=== PATIENT | female | born 1930 | race Caucasian/White ===

== ENCOUNTER 2019-08-12 00:37 | Inpatient (IN) ==
--- NOTE | 2019-08-12 01:21 | Emergency Department Note ---
ED Disposition Clinical Impression: Small bowel obstruction Disposition: Admitted As Inpatient Condition on Discharge: Fair Referrals: Elvin Guardado MD [Primary Care Provider] - - Critical Care Critical Care Time: No Attestation: On 08/12/19, the high probability of a clinically significant, sudden or life threatening deterioration of the following system(s) required my full and direct attention, intervention and personal management. The time I documented below is in addition to time spent performing reported procedures but includes the following listed in this critical care notation. Medical Decision Making - Jose Inquiry Pt receiving controlled substance: Yes Jose was queried for this patient: No Reason not queried -: Emergent pt cond-no time Risks and benefits of using a controlled substance: were not discussed with pt by me Vital Signs: 08/12/19 00:51 Temperature 97.7 F Temperature Source Oral Pulse Rate [Right] 86 Respiratory Rate 20 Blood Pressure [Right Arm] 162/81 H Blood Pressure Mean [Right Arm] 108 02 Sat by Pulse Oximetry 100 Oxygen Delivery Method Room Air - Lab Data Lab Results 08/12/19 00:43: Urine Color Yellow, Urine Appearance Clear, Urine pH 5.0, Ur Specific [place] >= 1.030, Urine Protein Negative, Urine Glucose (UA) Negative, Urine Ketones Negative, Urine Blood Negative, Urine Nitrate Negative, Urine Bilirubin Negative, Urine Urobilinogen 0.2, Ur Leukocyte Esterase Trace, Urine RBC 5-10, Urine WBC 3-5, Ur Squamous Epith Cells Occasional, Urine Bacteria 1+, Urine Mucus 1+ 08/12/19 00:55: WBC 10.4, RBC 4.52, Hgb 14.0, Hct 43.6, MCV 96.7, MCH 31.1, MCHC 32.2, RDW 14.0, Plt Count 181, MPV 7.6, Neut % (Auto) 65.8, Lymph % (Auto) 29.2, [place] % (Auto) 3.8, Eos % (Auto) 1.0, Baso % (Auto) 0.2, Neut # (Auto) 6.9, Lymph # (Auto) 3.1, [place] # (Auto) 0.4, Eos # (Auto) 0.1, Baso # (Auto) 0.0 08/12/19 00:55: Sodium 138, Potassium 4.6, Chloride 102, Carbon Dioxide 26, Anion Gap 14.6, BUN 28 H, Creatinine 1.20 H, Estimated Creat Clear 32, Estimated GFR 42 L, Est GFR ( Amer) 51 L, Glucose 138 H, Calcium 9.2, Total Bilirubin 0.3, AST 20, ALT 22, Alkaline Phosphatase 79, Troponin I < 0.02, Total Protein 8.0, Albumin 4.0, Globulin 4.0 H, Albumin/Globulin Ratio 1.0 L, Amylase 109, Lipase 205 08/12/19 00:55: Lactate 2.2 H Result diagrams: 08/12/19 00:55 08/12/19 00:55 Orders (Tests/Meds): ED MEDICATIONS Discontinued Medications Generic Name Dose Route Start Last Admin Trade Name Freq PRN Reason Stop Dose Admin Ioversol 75 ml 08/12/19 02:45 08/12/19 02:46 Rad-Optiray 350 100ml Vial IV 08/12/19 02:46 75 ml ONCE ONE Administration Protocol Morphine Sulfate 4 mg 08/12/19 01:29 08/12/19 01:34 Morphine 4mg/Ml Syringe IV 08/12/19 01:30 4 mg ONCE ONE Administration Ondansetron HCl 4 mg 08/12/19 01:29 08/12/19 01:34 Zofran 4mg/2ml Vial IV 08/12/19 01:30 4 mg ONCE ONE Administration Sodium Chloride 1,000 ml 08/12/19 01:29 08/12/19 01:34 Sod Chlor 0.9% 1000ml Bag IV 08/12/19 01:30 1,000 ml BOLUS ONE Administration Sodium Chloride 10 ml 08/12/19 02:45 08/12/19 02:46 Rad-Saline Flush 10ml Syringe IV 08/12/19 02:46 10 ml ONCE ONE Administration ORDERS Category Date Time Status CT abdomen pelvis w con Stat Cat Scan 08/12/19 01:20 Taken Troponin I Q3H Lab 08/12/19 04:30 Ordered Troponin I Q3H Lab 08/12/19 07:30 Ordered Blood Culture Stat Micro 08/12/19 00:55 Received - CT Data CT Scan: Abdomen, Pelvis Time Received: 03:09 ([facility] fax) ED CT Reviewed: Yes: I have viewed the radiologist's interpretation Findings Narrative: Small bowel obstruction - ECG Data Tracing #1 EKG interpreted by Loco Briceno MD: Rhythm: sinus Rate: 76 [place]: Left Ectopy: none Conduction: normal ST Segment Changes: none T Wave Changes: Nonspecific Q Waves: none No evidence of acute ischemia or injury Baseline artifact and wander present, but I consider the EKG adequate for accurate interpretation. - Physician Consults Physician Consulted: Rosalio leiva Geo Time: 03:09 Reason -: Pt condition Comment/Response: Since she does not have any major medical problems, see if surgery will admit to their service Additional Consult: Dr. Collazo Time: 03:12 Reason -: Admission, Surgical Eval/Care Comment/Response: Agrees to admit the patient to the hospital. We discussed the patient's clinical information, including history, exam, laboratory and radiology results and ED course. Per hospital procedure, I will write temporary bridge inpatient orders on the patient. Specific orders requested by the admitting physician: No NG tube at this time. General Adult HPI - General Chief complaint: Abdominal Pain Stated complaint: Stomach pain Time Seen by Provider: 08/12/19 01:30 Mode of Arrival: Ambulatory Limitations: No Limitations Description of Symptoms (Recalled from ER Triage Doc. by RN): PATIENT AMBULATORY TO TX 10 STATING "THERES SOMETHING WRONG WITH MY STOMACH. I AIN'T NEVER HAD IT HURT LIKE THIS BEFORE." PATIENT REPORTS PAIN STARTED IN L RIB AREA THAT RADIATES TO EPIGASTRIC AREA AND TO BACK. STATES SHE ATE SOME CHILI LAST NIGHT AND HAD SOME ACID REFLUX. STATES TODAY THE PAIN IS PROGRESSIVELY GETTING WORSE. - History of Present Illness HPI narrative: Complains of diffuse upper abdominal pain since about 4 PM today. States that she only vomited when she drank some soda water. Had a bowel movement tonight that was normal. No fever. Pain radiates to her back. Denies previous similar pain. She had some heartburn yesterday and treated with omeprazole with relief. She says that she thought on Thursday 4 days ago she was developing UTI. She had some low back pain and burning. She started on a cephalosporin antibiotic at that time that Dr. eD Leon gives her for recurrent UTI. Those symptoms got better. She also says that she gets recurrent shingles and keeps a prescription for famciclovir. She took that last week. Prior cholecystectomy, partial colectomy due to diverticulitis, hysterectomy. - Related Data Home Medications Medication Instructions Recorded Confirmed acyclovir 400 mg tablet 400 mg PO BID 10/06/17 08/12/19 omeprazole 40 mg capsule,delayed 40 mg PO DAILY cap 10/06/17 08/12/19 release Fluconazole 150 mg PO QWEEK 06/30/19 08/12/19 Previous Rx's Medication Instructions Recorded cephalexin 500 mg capsule 500 mg PO Q12H 10 Days #20 cap 06/30/19 Allergies Allergy/AdvReac Type Severity Reaction Status Date / Time acetaminophen Allergy Unknown DIFFICULTY Verified 07/07/19 14:57 [From DARVOCET-N] BREATHING ciprofloxacin [From CIPRO] Allergy Unknown DIFFICULTY Verified 07/07/19 14:57 BREATHING Penicillins [PENICILLINS] Allergy Unknown DIFFICULTY Verified 07/07/19 14:57 BREATHING propoxyphene Allergy Unknown DIFFICULTY Verified 07/07/19 14:57 [From DARVOCET-N] BREATHING doxycycline Allergy Verified 07/07/19 14:57 Sulfa (Sulfonamide Allergy Verified 07/07/19 14:57 Antibiotics) valacyclovir [From Valtrex] Allergy Vomiting Verified 07/07/19 14:57 [facility] History - Hepatitis A Screen Drug use history?: No High risk sexual behaviors?: No History of sexually transmitted infection?: No Currently employed?: No Childcare worker?: No Do you have indoor plumbing?: Yes Do you have electricity?: Yes Attestation statement:: This patient has been screened for Hepatitis A risk factors. I have reviewed the patient's past medical history: Yes Medical History: Reports:: Aneurysm, Asthma, Hyperlipidemia, Ulcer, Urinary Tract Infection Denies:: Cancer, Diabetes Mellitus Type 1, Diabetes Mellitus Type 2, Internal Pacemaker, MRSA, Seizures Other Medical History: Reports: Arthritis, Other. Denies: Blood Transfusion Reaction Comment: C-Diff, LS&A-Vulva Other Surgeries: Yes: Cholecystectomy, Colonoscopy, Colon Resection, Hysterectomy-Total, Other. No: Pacemaker Amputation: No Fractures: No Comment: ? D&E x2. 1963- KELSEY. 1964- BSO. 1988- A&P REPAIR. 1991- LAP CHOLECYSTECTOMY. 2001- PVS, RSO. 2006- pt. had 18" of colon removed. 2009- Hemorrhoid surgery. 2016or 2018-Brain surgery - Social History Smoking Status: Never smoker Alcohol Intake: never Alcohol Intake Frequency:: other Substance Use Type: denies use Occupational Status: retired Housing: house Household Members: none Family Hx:: Cancer, Diabetes, Coronary Artery Disease, Hypertension ROS Obtained: Yes All systems reviewed & no additional complaints - Constitutional Constitutional: Denies fever(s) - Cardiovascular Cardiovascular: Denies chest pain - Respiratory Respiratory: No dyspnea - Gastrointestinal Gastrointestingal: Reports: abdominal pain, nausea, vomiting. Denies: constipation, diarrhea - Genitourinary Female Genitourinary: Reports as per HPI - Musculoskeletal Musculoskeletal: Reports back pain - Integumentary/Breasts Skin/Breast: Reports as per HPI Physical Exam - General General appearance: alert, in no apparent distress - Head Head exam: atraumatic, normocephalic - Eye Eye exam: Present: normal appearance, EOMI - ENT ENT exam: Present: mucous membranes moist - Neck Neck exam: Present: normal inspection - Chest Chest inspection: Present: normal inspection, symmetric chest wall rise - Respiratory Respiratory exam: Present: normal lung sounds bilaterally. Absent: respiratory distress - Cardiovascular Cardiovascular exam: Present: regular rate, normal rhythm, normal heart sounds - Abdominal Exam Abdominal exam: Present: soft, tenderness, normal bowel sounds Abdominal tenderness: Present: RUQ, LUQ, epigastrium Comment: Midline abdominal scar - Extremities Exam Extremities exam: Present: normal inspection - Neurological Exam Neurological exam: Present: alert, oriented X3 - Psychiatric Psychiatric exam: Present: normal affect, normal mood - Skin Skin exam: Present: warm, dry
[2019-08-12 01:34] LABS: Microscopic, Urine URINE MICROSCOPIC (MICROSCOPIC)
[2019-08-12 01:37] LABS: Basophils % 0.2 % (0.1-2.0); Eosinophils # 0.1 K/mm3 (0.0-0.4); Hematocrit 43.6 % (37.0-47.0); Lymphocytes # 3.1 K/mm3 (0.7-4.5); Lymphocytes % 29.2 % (10-50); Mean Corpuscular HGB Conc 32.2 g/dL (31.8-35.4); Mean Corpuscular Volume 96.7 fl (81-99); Mean Platelet Volume 7.6 fl (7.4-10.4); Monocytes # 0.4 K/mm3 (0.1-1.0); Monocytes % 3.8 % (1.7-9.3); Neutrophils # 6.9 K/mm3 (1.8-7.8); Neutrophils % 65.8 % (37.0-80.0); Platelet Count 181 K/mm3 (142-424); Red Blood Count 4.52 M/mm3 (4.20-5.40); White Blood Count 10.4 K/mm3 (4.8-10.8)
[2019-08-12 01:41] LABS: Appearance,Urine CLEAR (Clear); Bilirubin,Urine Negative (Negative); Blood, Urine Negative (Negative); Color,Urine YELLOW (Yellow); Glucose,Urine (UA) Negative (Negative); Ketones,Urine Negative (Negative); Leukocyte Esterase,Urine TRACE (Negative); Protein,Urine Negative (Negative); Specific Gravity, Urine >= 1.030 (1.005-1.030); Urobilinogen,Urine 0.2 EU/dl (0.2)
[2019-08-12 01:49] LABS: Alanine Aminotransferase 22 U/L (12-78); Alkaline Phosphatase 79 U/L (46-116); Amylase 109 U/L (25-115); Anion Gap 14.6 mEq/L (5-15); Aspartate Amino Transferase 20 U/L (15-37); Bilirubin,Total 0.3 mg/dL (0.2-1.0); Blood Urea Nitrogen 28 mg/dL (7-18); Calcium 9.2 mg/dL (8.5-10.1); Carbon Dioxide 26 mmol/L (21.0-32.0); Chloride 102 mmol/L (98-107); Glucose 138 mg/dL (74-106); Sodium 138 mmol/L (136-145)
[2019-08-12 01:51] LABS: Squamous Epithelial Cell,Urine Occasional #/hpf (0-5)
[2019-08-12 01:52] LABS: Bacteria,Urine 1+ /lpf; Mucus,Urine 1+ /lpf
--- NOTE | 2019-08-12 07:15 | Pharmacy Consult Notes ---
[facility] Pharmacy VTE Monitoring - Patient Demographics Admission date: 08/12/19 Report Date: 08/12/19 Time: 07:15 Allergies/Adverse Reactions: Patient Allergies acetaminophen [From DARVOCET-N] Allergy (Unknown, Verified 07/07/19 14:57) DIFFICULTY BREATHING ciprofloxacin [From CIPRO] Allergy (Unknown, Verified 07/07/19 14:57) DIFFICULTY BREATHING Penicillins [PENICILLINS] Allergy (Unknown, Verified 07/07/19 14:57) DIFFICULTY BREATHING propoxyphene [From DARVOCET-N] Allergy (Unknown, Verified 07/07/19 14:57) DIFFICULTY BREATHING doxycycline Allergy (Verified 07/07/19 14:57) hydrocodone Allergy (Verified 08/12/19 05:18) Vomiting ibuprofen [From Advil] Allergy (Verified 08/12/19 05:18) Vomiting Sulfa (Sulfonamide Antibiotics) Allergy (Verified 07/07/19 14:57) valacyclovir [From Valtrex] Allergy (Verified 07/07/19 14:57) Vomiting Height: 1.52 m Weight: 59.988 kg Patient Problems: Current Active Problems Small bowel obstruction (Acute) - VTE Risk Labs: VTE Related Lab Results Hgb 14.0 g/dL (12.2-16.2) 08/12/19 00:55 Hct 43.6 % (37.0-47.0) 08/12/19 00:55 Plt Count 181 K/mm3 (142-424) 08/12/19 00:55 BUN 28 mg/dL (7-18) H 08/12/19 00:55 Creatinine 1.20 mg/dL (0.55-1.02) H 08/12/19 00:55 Estimated Creat Clear 32 mL/min (50-200) 08/12/19 00:55 VTE Score: 3 VTE Risk Level: Low Risk - Prophylaxis VTE Prophylaxis Ordered?: Yes Types of VTE Prophylaxis: TEDS Knee High Location of Applied Device: Bilateral Lower Extremeties
--- NOTE | 2019-08-12 07:20 | History & Physical Report ---
HPI HPI: This is an 89-year-old female who presented overnight to the emergency department with increasing abdominal pain and mild distention. Radiographic evidence revealed changes consistent with possible small bowel obstruction the surgical service was contacted for admission. She states that she continues to pass some flatus as of "yesterday or last night". She states that she had a bowel movement overnight. No nausea. One episode of emesis after "drinking soda water". from ED eval: Complains of diffuse upper abdominal pain since about 4 PM today. States that she only vomited when she drank some soda water. Had a bowel movement tonight that was normal. No fever. Pain radiates to her back. Denies previous similar pain. She had some heartburn yesterday and treated with omeprazole with relief. She says that she thought on Thursday 4 days ago she was developing UTI. She had some low back pain and burning. She started on a cephalosporin antibiotic at that time that Dr. De Leon gives her for recurrent UTI. Those symptoms got better. She also says that she gets recurrent shingles and keeps a prescription for famciclovir. She took that last week. Prior cholecystectomy, partial colectomy due to diverticulitis, hysterectomy. [facility] History Medical History: Reports:: Aneurysm, Asthma, Hyperlipidemia, Ulcer, Urinary Tract Infection Denies:: Cancer, Diabetes Mellitus Type 1, Diabetes Mellitus Type 2, Internal Pacemaker, MRSA, Seizures *Have you ever received a pneumonia vaccine?: No *Have you received a flu vaccine this season?: No Other Medical History: Reports: Arthritis, Other. Denies: Blood Transfusion Reaction Laterality Cases: Left: Myringotomy (Ear Tubes) Other Surgeries: Yes: Cholecystectomy, Colonoscopy, Colon Resection, Hysterectomy-Total, Other. No: Pacemaker Amputation: No Fractures: No - *Social History Educational Level: Attended Grade School Smoking Status: Never smoker Alcohol Intake: never Alcohol Intake Frequency:: other Substance Use Type: denies use *Occupational Status:: retired Housing: house Household Members: none *Travel in the last 8 weeks: None Family Hx:: Cancer, Coronary Artery Disease, Heart Attack, Stroke Review of Systems - Constitutional Denies chills - Eyes Denies change in vision - ENT Denies difficulty swallowing - *Cardiovascular Denies chest pain - *Respiratory Denies cough - *Gastrointestinal Reports abdominal pain, Denies loose stools, Denies nausea - *Genitourinary Denies difficulty urinating - *Musculoskeletal Denies deformity - Integumentary/Breasts Denies changing lesions - *Neurologic Denies abnormal speech - Psychiatric Denies anxiety - Endocrine Denies cold intolerance - Hematologic/Lymphatic Denies easy bleeding - Allergic/Immunologic Denies GI upset with certain foods Meds Home Medications Medication Instructions Recorded Confirmed Type acyclovir 400 mg tablet 400 mg PO BID 10/06/17 08/12/19 History omeprazole 40 mg capsule,delayed 40 mg PO DAILY cap 10/06/17 08/12/19 History release Fluconazole 150 mg PO QWEEK 06/30/19 08/12/19 History cephalexin 500 mg capsule 500 mg PO Q12H 10 Days #20 cap 06/30/19 08/12/19 Rx Allergies Allergy/AdvReac Type Severity Reaction Status Date / Time acetaminophen Allergy Unknown DIFFICULTY Verified 07/07/19 14:57 [From DARVOCET-N] BREATHING ciprofloxacin [From CIPRO] Allergy Unknown DIFFICULTY Verified 07/07/19 14:57 BREATHING Penicillins [PENICILLINS] Allergy Unknown DIFFICULTY Verified 07/07/19 14:57 BREATHING propoxyphene Allergy Unknown DIFFICULTY Verified 07/07/19 14:57 [From DARVOCET-N] BREATHING doxycycline Allergy Verified 07/07/19 14:57 hydrocodone Allergy Vomiting Verified 08/12/19 05:18 ibuprofen [From Advil] Allergy Vomiting Verified 08/12/19 05:18 Sulfa (Sulfonamide Allergy Verified 07/07/19 14:57 Antibiotics) valacyclovir [From Valtrex] Allergy Vomiting Verified 07/07/19 14:57 Exam Vital signs and Labs for Last 24 Hours: Temp Pulse Resp BP Pulse Ox 98.1 F 73 18 137/64 97 08/12/19 03:44 08/12/19 03:44 08/12/19 03:44 08/12/19 03:44 08/12/19 03:44 Laboratory Results - last 24 hr 08/12/19 00:43: Urine Color Yellow, Urine Appearance Clear, Urine pH 5.0, Ur Specific [place] >= 1.030, Urine Protein Negative, Urine Glucose (UA) Negative, Urine Ketones Negative, Urine Blood Negative, Urine Nitrate Negative, Urine Bilirubin Negative, Urine Urobilinogen 0.2, Ur Leukocyte Esterase Trace, Urine RBC 5-10, Urine WBC 3-5, Ur Squamous Epith Cells Occasional, Urine Bacteria 1+, Urine Mucus 1+ 08/12/19 00:55: WBC 10.4, RBC 4.52, Hgb 14.0, Hct 43.6, MCV 96.7, MCH 31.1, MCHC 32.2, RDW 14.0, Plt Count 181, MPV 7.6, Neut % (Auto) 65.8, Lymph % (Auto) 29.2, [place] % (Auto) 3.8, Eos % (Auto) 1.0, Baso % (Auto) 0.2, Neut # (Auto) 6.9, Lymph # (Auto) 3.1, [place] # (Auto) 0.4, Eos # (Auto) 0.1, Baso # (Auto) 0.0 08/12/19 00:55: Sodium 138, Potassium 4.6, Chloride 102, Carbon Dioxide 26, Anion Gap 14.6, BUN 28 H, Creatinine 1.20 H, Estimated Creat Clear 32, Estimated GFR 42 L, Est GFR ( Amer) 51 L, Glucose 138 H, Calcium 9.2, Total Bilirubin 0.3, AST 20, ALT 22, Alkaline Phosphatase 79, Troponin I < 0.02, Total Protein 8.0, Albumin 4.0, Globulin 4.0 H, Albumin/Globulin Ratio 1.0 L, Amylase 109, Lipase 205 08/12/19 00:55: Lactate 2.2 H 08/12/19 04:50: Lactate 2.4 H I & O for Last 24 hours: Intake & Output 08/09/19 08/10/19 08/11/19 08/12/19 11:59 11:59 11:59 11:59 Intake Total 88 / 88 Balance 88 / Weight 132 lb 4.014 oz - Constitutional no acute distress - *Routine HEENT Exam Head: Present: normocephalic, atraumatic - *Routine Neck Exam Present: full ROM - Routine Chest/Breast/Axilla Exam Chest wall: Absent: tenderness - *Routine Respiratory Exam Absent: respiratory distress - *Routine Cardiovascular Exam Present: RRR - *Routine Abdominal Exam Present: soft, tenderness, distended. Absent: rebound, guarding, rigid - *Routine Extremities Exam Present: full ROM. Absent: edema - Routine Back/Spine/Pelvis Exam Back/Spine: Present: full ROM - *Routine Skin Exam Present: intact. Absent: erythema - *Routine Neurological Exam Present: alert - Routine Psychiatric Exam Present: normal affect Results - Results Lab Results Last 24 Hours:: Laboratory Results - last 24 hr 08/12/19 00:43: Urine Color Yellow, Urine Appearance Clear, Urine pH 5.0, Ur Specific [place] >= 1.030, Urine Protein Negative, Urine Glucose (UA) Negative, Urine Ketones Negative, Urine Blood Negative, Urine Nitrate Negative, Urine Bilirubin Negative, Urine Urobilinogen 0.2, Ur Leukocyte Esterase Trace, Urine RBC 5-10, Urine WBC 3-5, Ur Squamous Epith Cells Occasional, Urine Bacteria 1+, Urine Mucus 1+ 08/12/19 00:55: WBC 10.4, RBC 4.52, Hgb 14.0, Hct 43.6, MCV 96.7, MCH 31.1, MCHC 32.2, RDW 14.0, Plt Count 181, MPV 7.6, Neut % (Auto) 65.8, Lymph % (Auto) 29.2, [place] % (Auto) 3.8, Eos % (Auto) 1.0, Baso % (Auto) 0.2, Neut # (Auto) 6.9, Lymph # (Auto) 3.1, [place] # (Auto) 0.4, Eos # (Auto) 0.1, Baso # (Auto) 0.0 08/12/19 00:55: Sodium 138, Potassium 4.6, Chloride 102, Carbon Dioxide 26, Anion Gap 14.6, BUN 28 H, Creatinine 1.20 H, Estimated Creat Clear 32, Estimated GFR 42 L, Est GFR ( Amer) 51 L, Glucose 138 H, Calcium 9.2, Total Bilirubin 0.3, AST 20, ALT 22, Alkaline Phosphatase 79, Troponin I < 0.02, Total Protein 8.0, Albumin 4.0, Globulin 4.0 H, Albumin/Globulin Ratio 1.0 L, Amylase 109, Lipase 205 08/12/19 00:55: Lactate 2.2 H 08/12/19 04:50: Lactate 2.[address] scan - abdomen: report reviewed, image reviewed CT scan - pelvis: report reviewed, image reviewed Assessment and Plan (1) Small bowel obstruction Current visit: Yes Status: Acute Category: Medical Code(s): K56.609 - Unspecified intestinal obstruction, unspecified as to partial versus complete obstruction Possible Johnie/partial small bowel obstruction per CT scan. She does continue to have bowel function. She is somewhat distended and somewhat tender to palpation. Overall, findings are somewhat equivocal and a small bowel follow- through has been ordered. Serial abdominal exams will continue. She understands the possibility of the need for surgical intervention.
[2019-08-13 08:20] LABS: Basophils % 0.2 % (0.1-2.0); Eosinophils % 0.3 % (0.1-12.0); Hematocrit 41.2 % (37.0-47.0); Hemoglobin 13.4 g/dL (12.2-16.2); Lymphocytes # 0.9 K/mm3 (0.7-4.5); Lymphocytes % 18.3 % (10-50); Mean Corpuscular HGB Conc 32.5 g/dL (31.8-35.4); Mean Corpuscular Volume 94.7 fl (81-99); Mean Platelet Volume 8.4 fl (7.4-10.4); Monocytes # 0.3 K/mm3 (0.1-1.0); Monocytes % 5.4 % (1.7-9.3); Neutrophils # 3.9 K/mm3 (1.8-7.8); Neutrophils % 75.8 % (37.0-80.0); Platelet Count 151 K/mm3 (142-424); Red Blood Count 4.35 M/mm3 (4.20-5.40); Red Cell Distribution Width 13.9 % (11.5-17.5); White Blood Count 5.2 K/mm3 (4.8-10.8)
[2019-08-13 08:38] LABS: Anion Gap 11.2 mEq/L (5-15); Calcium 8.5 mg/dL (8.5-10.1)
--- NOTE | 2019-08-13 08:40 | Progress Note ---
Subjective Narrative: She had an episode of fairly significant emesis and currently "feels a little better". She continues to have no flatus and has had no additional bowel movements. Exam Vital signs and Labs for Last 24 Hours: Temp Pulse Resp BP Pulse Ox 97.5 F L 85 18 134/72 93 L 08/13/19 04:00 08/13/19 04:00 08/13/19 04:00 08/13/19 04:00 08/13/19 04:00 Laboratory Results - last 24 hr 08/13/19 08:10: WBC 5.2 D, RBC 4.35, Hgb 13.4, Hct 41.2, MCV 94.7, MCH 30.8, MCHC 32.5, RDW 13.9, Plt Count 151, MPV 8.4, Neut % (Auto) 75.8, Lymph % (Auto) 18.3, [place] % (Auto) 5.4, Eos % (Auto) 0.3, Baso % (Auto) 0.2, Neut # (Auto) 3.9, Lymph # (Auto) 0.9, [place] # (Auto) 0.3, Eos # (Auto) 0.0, Baso # (Auto) 0.0 I & O for Last 24 hours: Intake & Output 08/10/19 08/11/19 08/12/19 08/13/19 11:59 11:59 11:59 11:59 Intake Total 2769 / 2769 Output Total 3050 / 3050 Balance -281 / -281 Weight 132 lb 4.014 oz 132 lb 4.438 oz Radiology Reports for the Last 24 Hours: Morning films reveal no significant change in bowel gas pattern or contrast pattern. These changes are consistent with complete bowel obstruction. - Constitutional no acute distress - *Routine Respiratory Exam Absent: respiratory distress - *Routine Cardiovascular Exam Present: RRR - *Routine Abdominal Exam Present: soft Progress Note: A&P (1) Small bowel obstruction Status: Acute Assessment and plan: The patient has evidence of complete bowel obstruction and I have continued to recommend surgical intervention. She understands the risks and benefits of nonoperative management and the risks and benefits of surgical intervention. She states that she is unwilling to undergo surgery today but will "think about it". She states that she "might have surgery tomorrow". Current Visit: Yes
--- NOTE | 2019-08-13 11:00 | Progress Note ---
[facility] Anesthesia Checklist - Patient Identification Patient Identification: Arm Band, Verbal (Name & ) - Structural Data Admitted From: Inpatient Planned Operative Procedure/s: Exploratory Laparotomy Consent for Planned Operative Procedure(s) Verified: Yes Verified Documents: Surgical Consent, History and Physical - NPO Status Verified Time NPO: 00:00 - Chart Verification Results Verified: CBC, BMP, UA - Additional verifications Anesthesia Reactions: No Hx Blood Transfusions: No Blood Transfusion Reaction: No - Airway Assessment C-Spine Mobility Assessed: Yes (full neck ROM) TMJ Mobility Assessed: Yes Dentition: Edentulous - Neurological Assessment Level of Consciousness: Awake, Alert, Appropriate, Follows Commands Hx Seizures: No Numbness or tingling in extremities: No - Anesthesia Plan Anesthesia Risk discussed: Yes Anesthesia Plan: Verified ASA Class: II (Emergent) Anesthesia Type: General [facility] History I have reviewed the patient's past medical history: Yes Medical History: Reports:: Aneurysm (brain aneurysm (2017)), Gastroesophageal Reflux Disease(GERD), Hyperlipidemia, Ulcer, Urinary Tract Infection Denies:: Cancer, Diabetes Mellitus Type 1, Diabetes Mellitus Type 2, Internal Pacemaker, MRSA, Seizures *Have you ever received a pneumonia vaccine?: No *Have you received a flu vaccine this season?: No Other Medical History: Reports: Arthritis, Other. Denies: Blood Transfusion Reaction Anesthesia experience/problems:: No prior complications Laterality Cases: Left: Myringotomy (Ear Tubes) Other Surgeries: Yes: Cholecystectomy, Colonoscopy, Colon Resection (18" removed), Hysterectomy-Total, Other. No: Pacemaker Amputation: No Fractures: No - *Social History Educational Level: Attended Grade School Smoking Status: Never smoker Alcohol Intake: never Alcohol Intake Frequency:: other Substance Use Type: denies use *Occupational Status:: retired Housing: house Household Members: none *Travel in the last 8 weeks: None Family Hx:: Cancer, Coronary Artery Disease, Heart Attack, Stroke
--- NOTE | 2019-08-13 13:41 | Operative Note ---
Date of procedure: 08/13/19 Pre-op Diagnosis:: Small bowel obstruction Post-op Diagnosis:: Small bowel obstruction secondary to lesions with focal necrosis (mid small bowel) Procedure performed:: Exploratory laparotomy Extensive lysis of adhesion Partial small bowel resection with primary anastomosis Surgeon:: Jacob Collazo MD ACADEMIC SUPPORT COORDINATOR:: Kevin Salazar Anesthesia: GETA Estimated blood loss (mL): 150 Operative findings:: Dense adhesions throughout abdomen. The adhesions were between loops of small bowel, between small bowel and colon, between omentum and small bowel/colon, and between small bowel and abdominal wall. Small herniation in the lower aspect of prior midline incision (not addressed at this operation) Small bowel obstructed around complex posterior adhesion in the left mid/upper quadrant with focal necrosis of mid small bowel Otomy with leakage of small bowel contents noted during maneuvering/elevating small bowel Operative note:: After informed consent was obtained the patient was taken to the operating room and placed in the supine position. General anesthesia was induced and the patient's abdomen was prepped and draped in a sterile fashion. An upper midline incision was made (site of prior incision for partial colectomy). The deep subcutaneous tissue was sharply dissected with scalpel. The fascia was carefully entered sharply and the incision was extended to just below the umbilicus. Very complex dense adhesions were immediately encountered. The anterior abdominal wall and the omentum were densely adhesed. The omentum and the small bowel/colon also notably adhesed. Essentially every portion of the small bowel was adhesed to "other loops of small bowel". This essentially crea delonte "frozen abdominal contents" within adhesions. A combination of blunt dissection, electrocautery and sharp dissection with Metzenbaum scissors was utilized to carefully elevate and separate the multiple loops of bowel. A small hernia towards the pelvic aspect of the patient's prior incision was encountered. No sign of incarceration or complication was noted secondary to this. The decision was made to forego attempts at closure as this was fairly caudal to the incision. Visualization was very difficult. A portion of the mid small bowel was notably adhesed in a cephalad manner towards the left upper quadrant. As this was carefully elevated an otomy with significant leakage became evident. The contents were evacuated and copious irrigation ensued. As this portion of small bowel was elevated to allow better visualization focal necrosis became evident. A JAMES stapler was utilized to transect proximally and distally to this region. The Enseal device was then utilized to transect through the mesentery and the portion of small bowel (mid small bowel) was passed off for pathologic evaluation. The remainder of the small bowel was carefully evaluated. No obvious areas of necrosis were noted; however, multiple small serosal rents were noted. A few of the serosal rents were deemed somewhat significant and this tissue was reapproximated with interrupted 3-0 Nurolon. A [id number] stapled anastomosis was then accomplished utilizing a JAMES stapler. The common otomy was closed with a TX 60 stapler. The "crotch" was reinforced with interrupted 3-0 Nurolon. The stapled margin was imbricated with 3-0 nylon to ensure improved hemostasis. The mesenteric defect was then closed with running 2-0 Vicryl. The abdominal cavity was thoroughly irrigated. The fascia was then reapproximated with #2 Novafil. The skin was partially closed with interrupted 4-0 nylon in the remaining areas of opening were packed with moistened Kerlix. The patient was transferred to recovery in stable condition after reversal of her anesthetics and extubation. Condition: stable Disposition: PACU Specimens:: Mid small bowel Complications:: No immediate
--- NOTE | 2019-08-13 14:01 | Progress Note ---
[facility] Anesthesia Record Part I Intake, IV Amount: 1,700 Estimated blood loss (mL): 200 Urine output (mL): 150 Blood Products used (#): none Blood Pressure: 133/64 SaO2: 97 (on 2L NC) Pulse Rate: 95 Respiratory Rate: 16 Temperature: 97.9 F Patient is:: Drowsy, Nasal O2, Stable Stable to PACU at:: 13:50 Comments:: Pt VSS, arouses to verbal stimuli, NG tube remains intact to low int suction.
--- NOTE | 2019-08-13 19:07 | Electrocardiograph Report ---
APPROVED REPORT Exam: Resting ECG HR:76 bpm ECG Measurements Heart Rate 76 AXES PA 164 P 36 QRSd 80 QRS -5 QT 400 T36 QTc 450 <Conclusion> Normal sinus rhythm Nonspecific T wave abnormality Abnormal ECG Electronically signed by : Rinku Dixon, 08/13/2019 19:06:56
[2019-08-14 06:15] LABS: Basophils % 0.4 % (0.1-2.0); Eosinophils % 0.7 % (0.1-12.0); Hematocrit 36.5 % (37.0-47.0); Lymphocytes # 0.7 K/mm3 (0.7-4.5); Lymphocytes % 10.8 % (10-50); Mean Corpuscular HGB Conc 31.9 g/dL (31.8-35.4); Mean Corpuscular Volume 94.7 fl (81-99); Monocytes # 0.3 K/mm3 (0.1-1.0); Monocytes % 4.9 % (1.7-9.3); Neutrophils % 83.2 % (37.0-80.0); Platelet Count 157 K/mm3 (142-424); Red Blood Count 3.86 M/mm3 (4.20-5.40); Red Cell Distribution Width 14.1 % (11.5-17.5)
[2019-08-14 06:16] LABS: Hemoglobin 11.6 g/dL (12.2-16.2)
[2019-08-14 06:21] LABS: Anion Gap 17.1 mEq/L (5-15)
[2019-08-14 06:22] LABS: Calcium 7.4 mg/dL (8.5-10.1)
--- NOTE | 2019-08-14 09:12 | Progress Note ---
Subjective Narrative: Moderate postoperative pain Exam Vital signs and Labs for Last 24 Hours: Temp Pulse Resp BP Pulse Ox 97.6 F 112 H 18 131/69 97 08/14/19 08:00 08/14/19 08:00 08/14/19 08:00 08/14/19 08:00 08/14/19 08:00 Laboratory Results - last 24 hr 08/13/19 10:25: Urine Color Yellow, Urine Appearance Clear, Urine pH 6.0, Ur Specific [place] >= 1.030, Urine Protein Trace, Urine Glucose (UA) Negative, Urine Ketones Negative, Urine Blood Negative, Urine Nitrate Negative, Urine Bilirubin Negative, Urine Urobilinogen 0.2, Ur Leukocyte Esterase Negative, Urine WBC 3-5, Hyaline Casts 3-5, Coarse Granular Casts 3-5, WBC Casts Occasional 08/14/19 05:50: WBC 6.0, RBC 3.86 L, Hgb 11.6 L D, Hct 36.5 L, MCV 94.7, MCH 30.2, MCHC 31.9, RDW 14.1, Plt Count 157, MPV 8.0, Neut % (Auto) 83.2 H, Lymph % (Auto) 10.8, [place] % (Auto) 4.9, Eos % (Auto) 0.7, Baso % (Auto) 0.4, Neut # (Auto) 5.0, Lymph # (Auto) 0.7, [place] # (Auto) 0.3, Eos # (Auto) 0.0, Baso # (Auto) 0.0 08/14/19 05:50: Sodium 145, Potassium 4.1, Chloride 110 H, Carbon Dioxide 22 D, Anion Gap 17.1 H, BUN 27 H D, Creatinine 1.79 H D, Estimated Creat Clear 22, Estimated GFR 27 L, Est GFR ( Amer) 32 L D, Glucose 140 H, Calcium 7.4 L D I & O for Last 24 hours: Intake & Output 08/11/19 08/12/19 08/13/19 08/14/19 11:59 11:59 11:59 11:59 Intake Total 2769 / 2769 3488 / 3488 Output Total 3050 / 3050 750 / 750 Balance -281 / -281 2738 / 2738 Weight 132 lb 4.014 oz 132 lb 4.438 oz 137 lb 8 oz Microbiology Reports for the Last 24 Hours: Microbiology 08/12/19 00:55 Blood Blood Culture - Preliminary NO GROWTH AFTER 48 HOURS 08/12/19 00:55 Blood Blood Culture - Preliminary NO GROWTH AFTER 48 HOURS - Constitutional no acute distress - *Routine Respiratory Exam Absent: respiratory distress - *Routine Cardiovascular Exam Present: tachycardia - *Routine Abdominal Exam Comments: dressing in place Progress Note: A&P (1) Small bowel obstruction Status: Acute Assessment and plan: overall, doing fairly well s/p ex-lap with extensive lysis of adhesions and partial small bowel resection Rare ice chips Increase ambulation Dressing changes Current Visit: Yes (2) Acute kidney injury Status: Acute Assessment and plan: Most likely secondary to dehydration Current Visit: Yes (3) Dehydration Status: Acute Assessment and plan: 1 liter NS bolus Current Visit: Yes
[2019-08-15 06:21] LABS: Basophils % 0.2 % (0.1-2.0); Eosinophils % 0.1 % (0.1-12.0); Lymphocytes # 0.7 K/mm3 (0.7-4.5); Monocytes # 0.2 K/mm3 (0.1-1.0); Red Blood Count 3.17 M/mm3 (4.20-5.40)
[2019-08-15 06:22] LABS: Anion Gap 14.7 mEq/L (5-15); Calcium 7.8 mg/dL (8.5-10.1)
[2019-08-15 06:34] LABS: Hematocrit 30.6 % (37.0-47.0); Lymphocytes % 10.5 % (10-50); Mean Corpuscular HGB Conc 31.6 g/dL (31.8-35.4); Mean Corpuscular Volume 96.5 fl (81-99); Monocytes % 2.8 % (1.7-9.3); Neutrophils # 5.8 K/mm3 (1.8-7.8); Neutrophils % 86.4 % (37.0-80.0); Platelet Count 127 K/mm3 (142-424); Red Cell Distribution Width 14.4 % (11.5-17.5); White Blood Count 6.7 K/mm3 (4.8-10.8)
[2019-08-15 06:35] LABS: Hemoglobin 9.7 g/dL (12.2-16.2)
--- NOTE | 2019-08-15 07:13 | Progress Note ---
Subjective Patient reports: feels better, still having pain Narrative: sitting in chair this AM...ambulated yesterday in hallway. Exam Vital signs and Labs for Last 24 Hours: Temp Pulse Resp BP Pulse Ox 98.0 F 105 H 17 126/61 93 L 08/15/19 04:00 08/15/19 04:00 08/15/19 04:00 08/15/19 04:00 08/15/19 04:00 Laboratory Results - last 24 hr 08/15/19 05:22: WBC 6.7, RBC 3.17 L, Hgb 9.7 L D, Hct 30.6 L, MCV 96.5, MCH 30.5, MCHC 31.6 L, RDW 14.4, Plt Count 127 L, MPV 8.0, Neut % (Auto) 86.4 H, Lymph % (Auto) 10.5, [place] % (Auto) 2.8, Eos % (Auto) 0.1, Baso % (Auto) 0.2, Neut # (Auto) 5.8, Lymph # (Auto) 0.7, [place] # (Auto) 0.2, Eos # (Auto) 0.0, Baso # (Auto) 0.0 08/15/19 05:22: Sodium 146 H, Potassium 3.7, Chloride 112 H, Carbon Dioxide 23, Anion Gap 14.7, BUN 26 H, Creatinine 1.26 H D, Estimated Creat Clear 31, Estimated GFR 40 L, Est GFR ( Amer) 49 L D, Glucose 103 D, Calcium 7.8 L I & O for Last 24 hours: Intake & Output 08/12/19 08/13/19 08/14/19 08/15/19 11:59 11:59 11:59 11:59 Intake Total 2769 / 2769 3488 / 3488 3486 / 3486 Output Total 3050 / 3050 750 / 750 1210 / 1210 Balance -281 / -281 2738 / 2738 2276 / 2276 Weight 132 lb 4.014 oz 132 lb 4.438 oz 137 lb 8 oz 137 lb - Constitutional no acute distress - *Routine Respiratory Exam Absent: respiratory distress - *Routine Cardiovascular Exam Present: tachycardia - *Routine Abdominal Exam Present: soft Comments: dressing changed yesterday. no cellulitis. Progress Note: A&P (1) Small bowel obstruction Status: Acute Assessment and plan: overall, stable POD#2 Current Visit: Yes (2) Acute kidney injury Status: Acute Assessment and plan: improving Current Visit: Yes (3) Dehydration Status: Acute Assessment and plan: improving. humphries not removed yesterday due to need for strict I&Os humphries to be removed today Current Visit: Yes (4) Ileus, postoperative Status: Acute Assessment and plan: keep NG for now Current Visit: Yes (5) Postoperative anemia Status: Acute Assessment and plan: mild...will re-check H/H later today Current Visit: Yes
[2019-08-15 08:47] LABS: Eosinophils % 1 % (0-3); Lymphocytes % 12 % (10-50); Monocytes % 5 % (2-9); Neutrophils % 72 % (42-76); Total Cells Counted 100
[2019-08-15 08:48] LABS: Hypochromasia 1+; Toxic Vacuolation 1+
--- NOTE | 2019-08-15 10:21 | Progress Note ---
[facility] Anesthesia Record Part II Discharge Time: 14:20 Destination: Medical Surgical Department PACU nurse assessment reviewed?: Yes Patient Condition:: Good Anesthesia Complications:: None Swallowing reflex intact?: Yes Cyanosis?: No Blood Pressure: 116/72 Pulse Rate: 115 Temperature: 98.1 F Mental Status: Alert & Oriented Pain level:: 6 Nausea and/or vomitting:: None Intake, IV Amount: 0
[2019-08-15 13:21] LABS: Hematocrit 28.3 % (37.0-47.0); Hemoglobin 9.3 g/dL (12.2-16.2)
[2019-08-16 06:31] LABS: Basophils % 0.1 % (0.1-2.0); Eosinophils % 0.2 % (0.1-12.0); Hematocrit 26.1 % (37.0-47.0); Hemoglobin 8.4 g/dL (12.2-16.2); Lymphocytes # 0.7 K/mm3 (0.7-4.5); Lymphocytes % 13.9 % (10-50); Mean Corpuscular HGB Conc 32.1 g/dL (31.8-35.4); Mean Corpuscular Volume 96.3 fl (81-99); Mean Platelet Volume 8.9 fl (7.4-10.4); Monocytes # 0.2 K/mm3 (0.1-1.0); Monocytes % 3.6 % (1.7-9.3); Neutrophils # 4.1 K/mm3 (1.8-7.8); Neutrophils % 82.2 % (37.0-80.0); Platelet Count 92 K/mm3 (142-424); Red Blood Count 2.71 M/mm3 (4.20-5.40); Red Cell Distribution Width 14.4 % (11.5-17.5)
[2019-08-16 06:40] LABS: Anion Gap 14.1 mEq/L (5-15)
--- NOTE | 2019-08-16 08:28 | Progress Note ---
Subjective Patient reports: pain is less, no flatus, no bowel movement, nausea Exam Vital signs and Labs for Last 24 Hours: Temp Pulse Resp BP Pulse Ox 98.4 F 95 H 18 120/52 L 90 L 08/16/19 07:57 08/16/19 07:57 08/16/19 07:57 08/16/19 07:57 08/16/19 07:57 Laboratory Results - last 24 hr 08/15/19 05:22: Total Counted 100, Neutrophils % (Manual) 72, Band Neutrophils % 10.0 H, Lymphocytes % (Manual) 12, Monocytes % (Manual) 5, Eosinophils % (Manual) 1, Toxic Vacuolation 1+, Platelet Estimate Slight decrease, Hypochromasia 1+ 08/15/19 13:13: Hgb 9.3 L, Hct 28.3 L 08/16/19 05:39: WBC 5.0 D, RBC 2.71 L, Hgb 8.4 L, Hct 26.1 L, MCV 96.3, MCH 30.9, MCHC 32.1, RDW 14.4, Plt Count 92 L D, MPV 8.9, Neut % (Auto) 82.2 H, Lymph % (Auto) 13.9, [place] % (Auto) 3.6, Eos % (Auto) 0.2, Baso % (Auto) 0.1, Neut # (Auto) 4.1, Lymph # (Auto) 0.7, [place] # (Auto) 0.2, Eos # (Auto) 0.0, Baso # (Auto) 0.0 08/16/19 05:39: Sodium 148 H, Potassium 3.1 L, Chloride 115 H, Carbon Dioxide 22, Anion Gap 14.1, BUN 23 H, Creatinine 1.01, Estimated Creat Clear 38, Estimated GFR 52 L, Est GFR ( Amer) 63 D, Glucose 82, Calcium 8.0 L I & O for Last 24 hours: Intake & Output 08/13/19 08/14/19 08/15/19 08/16/19 11:59 11:59 11:59 11:59 Intake Total 2769 / 2769 3488 / 3488 3486 / 3486 2865 / 2865 Output Total 3050 / 3050 750 / 750 1485 / 1485 600 / 600 Balance -281 / -281 2738 / 2738 2000 2265 / 2265 Weight 132 lb 4.438 oz 137 lb 8 oz 137 lb 137 lb - Constitutional no acute distress - *Routine Respiratory Exam Absent: respiratory distress - *Routine Cardiovascular Exam Present: RRR - *Routine Abdominal Exam Present: tenderness Comments: dressing intact. no erythema. Progress Note: A&P (1) Small bowel obstruction Status: Acute Current Visit: Yes (2) Acute kidney injury Status: Resolved Current Visit: Yes (3) Dehydration Status: Acute Current Visit: Yes (4) Ileus, postoperative Status: Acute Assessment and plan: await return of bowel function Current Visit: Yes (5) Postoperative anemia Status: Acute Assessment and plan: repeat H/H later today Current Visit: Yes (6) Hypokalemia Status: Acute Assessment and plan: replace K+ and recheck in AM Current Visit: Yes (7) Physical deconditioning Status: Acute Assessment and plan: PT consult Current Visit: Yes
[2019-08-16 12:47] LABS: Hemoglobin 8.3 g/dL (12.2-16.2)
[2019-08-16 13:14] LABS: Creatine Kinase 63 U/L (26-192)
--- NOTE | 2019-08-16 15:32 | Electrocardiograph Report ---
APPROVED REPORT Exam: Resting ECG HR:89 bpm ECG Measurements Heart Rate 89 AXES LA 146 P 64 QRSd 86 QRS 17 QT 352 T57 QTc 428 <Conclusion> Normal sinus rhythm Low voltage QRS Borderline ECG Electronically signed by : Rinku Dixon, 08/16/2019 15:31:38
[2019-08-17 06:10] LABS: Basophils % 0.2 % (0.1-2.0); Eosinophils # 0.1 K/mm3 (0.0-0.4); Eosinophils % 1.1 % (0.1-12.0); Hematocrit 26.7 % (37.0-47.0); Hemoglobin 8.3 g/dL (12.2-16.2); Lymphocytes # 0.7 K/mm3 (0.7-4.5); Lymphocytes % 14.5 % (10-50); Mean Corpuscular HGB Conc 31.1 g/dL (31.8-35.4); Mean Platelet Volume 9.3 fl (7.4-10.4); Monocytes # 0.2 K/mm3 (0.1-1.0); Monocytes % 5.2 % (1.7-9.3); Neutrophils # 3.5 K/mm3 (1.8-7.8); Platelet Count 102 K/mm3 (142-424); Red Blood Count 2.69 M/mm3 (4.20-5.40); Red Cell Distribution Width 14.4 % (11.5-17.5); White Blood Count 4.5 K/mm3 (4.8-10.8)
[2019-08-17 06:20] LABS: Anion Gap 12.5 mEq/L (5-15)
--- NOTE | 2019-08-17 08:30 | Progress Note ---
Subjective Patient reports: no flatus, no bowel movement Exam Vital signs and Labs for Last 24 Hours: Temp Pulse Resp BP Pulse Ox 97.8 F 87 20 108/52 L 92 L 08/17/19 08:00 08/17/19 08:00 08/17/19 08:00 08/17/19 08:00 08/17/19 08:00 Laboratory Results - last 24 hr 08/16/19 12:35: Hgb 8.3 L, Hct 26.0 L 08/16/19 12:35: Total Creatine Kinase 63, CK-MB (CK-2) 1.3, CK-MB (CK-2) Rel Index 2.1, Troponin I < 0.02 08/17/19 05:50: WBC 4.5 L, RBC 2.69 L, Hgb 8.3 L, Hct 26.7 L, MCV 99.0, MCH 30.8, MCHC 31.1 L, RDW 14.4, Plt Count 102 L, MPV 9.3, Neut % (Auto) 79.0, Lymph % (Auto) 14.5, [place] % (Auto) 5.2, Eos % (Auto) 1.1, Baso % (Auto) 0.2, Neut # (Auto) 3.5, Lymph # (Auto) 0.7, [place] # (Auto) 0.2, Eos # (Auto) 0.1, Baso # (Auto) 0.0 08/17/19 05:50: Sodium 146 H, Potassium 3.5, Chloride 114 H, Carbon Dioxide 23, Anion Gap 12.5, BUN 17 D, Creatinine 1.02, Estimated Creat Clear 38, Estimated GFR 51 L, Est GFR ( Amer) 62, Glucose 136 H, Calcium 8.0 L I & O for Last 24 hours: Intake & Output 08/14/19 08/15/19 08/16/19 08/17/19 11:59 11:59 11:59 11:59 Intake Total 3488 / 3488 3486 / 3486 3205 / 3205 3053 / 3053 Output Total 750 / 750 1485 / 1485 600 / 600 700 / 700 Balance 2738 / 2738 2000 2605 / 2605 2353 / 2353 Weight 137 lb 8 oz 137 lb 137 lb 144 lb 3 oz Microbiology Reports for the Last 24 Hours: Microbiology 08/12/19 00:55 Blood Blood Culture - Final NO GROWTH AFTER 5 DAYS 08/12/19 00:55 Blood Blood Culture - Final NO GROWTH AFTER 5 DAYS - Constitutional no acute distress - *Routine Respiratory Exam Absent: respiratory distress - *Routine Cardiovascular Exam Present: RRR - *Routine Abdominal Exam Present: soft Comments: dressing in place. no erythema. Progress Note: A&P (1) Small bowel obstruction Status: Acute Assessment and plan: Overall, stable POD#4 s/p ex-lap with SOREN and partial SB resection Current Visit: Yes (2) Acute kidney injury Status: Resolved Current Visit: Yes (3) Dehydration Status: Resolved Current Visit: Yes (4) Ileus, postoperative Status: Acute Assessment and plan: NG to drain with q2 hour residual Current Visit: Yes (5) Postoperative anemia Status: Acute Current Visit: Yes (6) Hypokalemia Status: Acute Current Visit: Yes (7) Physical deconditioning Status: Acute Assessment and plan: continue PT Current Visit: Yes
[2019-08-18 06:21] LABS: Basophils % 0.2 % (0.1-2.0); Eosinophils % 0.1 % (0.1-12.0); Hematocrit 26.4 % (37.0-47.0); Hemoglobin 8.2 g/dL (12.2-16.2); Lymphocytes # 4.2 K/mm3 (0.7-4.5); Lymphocytes % 85.4 % (10-50); Mean Corpuscular HGB Conc 31.2 g/dL (31.8-35.4); Mean Corpuscular Volume 96.3 fl (81-99); Monocytes # 0.7 K/mm3 (0.1-1.0); Monocytes % 13.4 % (1.7-9.3); Platelet Count 103 K/mm3 (142-424); Red Blood Count 2.75 M/mm3 (4.20-5.40); Red Cell Distribution Width 14.1 % (11.5-17.5); White Blood Count 4.9 K/mm3 (4.8-10.8)
[2019-08-18 06:24] LABS: Neutrophils % 0.9 % (37.0-80.0)
[2019-08-18 06:30] LABS: Anion Gap 11.4 mEq/L (5-15); Calcium 7.5 mg/dL (8.5-10.1)
--- NOTE | 2019-08-18 07:00 | Progress Note ---
Subjective Patient reports: no flatus, no bowel movement Exam Vital signs and Labs for Last 24 Hours: Temp Pulse Resp BP Pulse Ox 97.7 F 90 16 127/60 91 L 08/18/19 04:00 08/18/19 04:00 08/18/19 04:00 08/18/19 04:00 08/18/19 04:00 Laboratory Results - last 24 hr 08/18/19 05:45: WBC 4.9, RBC 2.75 L, Hgb 8.2 L, Hct 26.4 L, MCV 96.3, MCH 30.0, MCHC 31.2 L, RDW 14.1, Plt Count 103 L, MPV 10.0, Neut % (Auto) 0.9 L, Lymph % (Auto) 85.4 H, [place] % (Auto) 13.4 H, Eos % (Auto) 0.1, Baso % (Auto) 0.2, Neut # (Auto) 0.0 L*, Lymph # (Auto) 4.2, [place] # (Auto) 0.7, Eos # (Auto) 0.0, Baso # (Auto) 0.0 08/18/19 05:45: Sodium 145, Potassium 3.4 L, Chloride 113 H, Carbon Dioxide 24, Anion Gap 11.4, BUN 13, Creatinine 0.87, Estimated Creat Clear 42, Estimated GFR 62, Est GFR ( Amer) 75 D, Glucose 138 H, Calcium 7.5 L I & O for Last 24 hours: Intake & Output 08/15/19 08/16/19 08/17/19 08/18/19 11:59 11:59 11:59 11:59 Intake Total 3486 / 3486 3205 / 3205 3053 / 3053 1934 / 1934 Output Total 1485 / 1485 600 / 600 700 / 700 90 / 90 Balance 2000 2605 / 2605 2353 / 2353 1844 / 1844 Weight 137 lb 137 lb 144 lb 3 oz 146 lb 6 oz - Constitutional no acute distress - *Routine Respiratory Exam Absent: respiratory distress - *Routine Cardiovascular Exam Present: RRR - *Routine Abdominal Exam Present: soft Comments: packing in place. no erythema. Progress Note: A&P (1) Small bowel obstruction Status: Acute Current Visit: Yes (2) Acute kidney injury Status: Resolved Current Visit: Yes (3) Dehydration Status: Resolved Current Visit: Yes (4) Ileus, postoperative Status: Acute Assessment and plan: prolonged post-op ileus. NG to drain bag with no N/V. Current Visit: Yes (5) Postoperative anemia Status: Acute Current Visit: Yes (6) Hypokalemia Status: Acute Assessment and plan: mild...will replace Current Visit: Yes (7) Physical deconditioning Status: Acute Current Visit: Yes
--- NOTE | 2019-08-18 07:21 | Progress Note ---
Internal Medicine - PN: Subj *Date: 08/18/19 *Time: 07:21 Exam Vital signs and Labs for Last 24 Hours: Temp Pulse Resp BP Pulse Ox 97.7 F 90 16 127/60 91 L 08/18/19 04:00 08/18/19 04:00 08/18/19 04:00 08/18/19 04:00 08/18/19 04:00 Laboratory Results - last 24 hr 08/18/19 05:45: WBC 4.9, RBC 2.75 L, Hgb 8.2 L, Hct 26.4 L, MCV 96.3, MCH 30.0, MCHC 31.2 L, RDW 14.1, Plt Count 103 L, MPV 10.0, Neut % (Auto) 0.9 L, Lymph % (Auto) 85.4 H, [place] % (Auto) 13.4 H, Eos % (Auto) 0.1, Baso % (Auto) 0.2, Neut # (Auto) 0.0 L*, Lymph # (Auto) 4.2, [place] # (Auto) 0.7, Eos # (Auto) 0.0, Baso # (Auto) 0.0 08/18/19 05:45: Sodium 145, Potassium 3.4 L, Chloride 113 H, Carbon Dioxide 24, Anion Gap 11.4, BUN 13, Creatinine 0.87, Estimated Creat Clear 42, Estimated GFR 62, Est GFR ( Amer) 75 D, Glucose 138 H, Calcium 7.5 L I & O for Last 24 hours: Intake & Output 08/15/19 08/16/19 08/17/19 08/18/19 23:59 23:59 23:59 23:59 Intake Total 2785 / 2785 3614 / 3614 1778 / 1778 1219 / 1219 Output Total 1725 / 1725 650 / 650 100 / 100 90 / 90 Balance 1060 / 1060 2964 / 2964 1678 / 1678 1129 / 1129 Weight 62.142 kg 62.142 kg 65.402 kg 66.395 kg Assessment and Plan (1) Small bowel obstruction Current visit: Yes Status: Acute Category: Medical Code(s): K56.609 - Unspecified intestinal obstruction, unspecified as to partial versus complete obstruction (2) Acute kidney injury Current visit: Yes Status: Resolved Category: Medical Code(s): N17.9 - Acute kidney failure, unspecified (3) Dehydration Current visit: Yes Status: Resolved Category: Medical Code(s): E86.0 - Dehydration (4) Ileus, postoperative Current visit: Yes Status: Acute Category: Medical Code(s): K91.89 - Other postprocedural complications and disorders of digestive system; K56.7 - Ileus, unspecified (5) Postoperative anemia Current visit: Yes Status: Acute Category: Medical Code(s): D64.9 - Anemia, unspecified (6) Hypokalemia Current visit: Yes Status: Acute Category: Medical Code(s): E87.6 - Hypokalemia (7) Physical deconditioning Current visit: Yes Status: Acute Category: Medical Code(s): R53.81 - Other malaise The patient's infection will respond to the chosen ABx?: Yes Is the patient receiving the right drug, dose, and route?: Yes Could a more targeted ABx be ordered?: No
[2019-08-18 08:09] LABS: Lymphocytes % 16 % (10-50); Monocytes % 5 % (2-9); Neutrophils % 78 % (42-76); Total Cells Counted 100
[2019-08-18 08:10] LABS: RBC Morphology Normal
[2019-08-18 20:33] LABS: Hematocrit 33.4 % (37.0-47.0)
[2019-08-19 06:57] LABS: Basophils % 0.4 % (0.1-2.0); Eosinophils # 0.1 K/mm3 (0.0-0.4); Eosinophils % 1.1 % (0.1-12.0); Hemoglobin 10.8 g/dL (12.2-16.2); Lymphocytes # 0.9 K/mm3 (0.7-4.5); Lymphocytes % 13.7 % (10-50); Mean Corpuscular HGB Conc 32.8 g/dL (31.8-35.4); Mean Corpuscular Volume 90.8 fl (81-99); Mean Platelet Volume 9.8 fl (7.4-10.4); Monocytes # 0.3 K/mm3 (0.1-1.0); Neutrophils # 5.2 K/mm3 (1.8-7.8); Neutrophils % 80.8 % (37.0-80.0); Platelet Count 112 K/mm3 (142-424); Red Blood Count 3.63 M/mm3 (4.20-5.40); Red Cell Distribution Width 14.9 % (11.5-17.5); White Blood Count 6.4 K/mm3 (4.8-10.8)
[2019-08-19 07:03] LABS: Anion Gap 11.5 mEq/L (5-15); Calcium 7.8 mg/dL (8.5-10.1)
--- NOTE | 2019-08-19 08:18 | Progress Note ---
Subjective Patient reports: no bowel movement Narrative: she states that she "might have passed a little gas". Exam Vital signs and Labs for Last 24 Hours: Temp Pulse Resp BP Pulse Ox 98.9 F 84 16 119/54 L 97 08/19/19 04:00 08/19/19 04:00 08/19/19 04:00 08/19/19 04:00 08/19/19 04:00 Laboratory Results - last 24 hr 08/18/19 08:30: Blood Type O Negative, Antibody Screen Negative, Crossmatch (AHG) See Detail 08/18/19 11:35: Blood Type Confirm O Negative 08/18/19 20:25: Hgb 11.0 L D, Hct 33.4 L 08/19/19 06:30: WBC 6.4 D, RBC 3.63 L D, Hgb 10.8 L, Hct 33.0 L, MCV 90.8, MCH 29.7, MCHC 32.8, RDW 14.9, Plt Count 112 L, MPV 9.8, Neut % (Auto) 80.8 H, Lymph % (Auto) 13.7, [place] % (Auto) 4.0, Eos % (Auto) 1.1, Baso % (Auto) 0.4, Neut # (Auto) 5.2, Lymph # (Auto) 0.9, [place] # (Auto) 0.3, Eos # (Auto) 0.1, Baso # (Auto) 0.0 08/19/19 06:30: Sodium 141, Potassium 3.5, Chloride 106, Carbon Dioxide 27, Anion Gap 11.5, BUN 12, Creatinine 0.95, Estimated Creat Clear 41, Estimated GFR 56 L, Est GFR ( Amer) 67, Glucose 130 H, Calcium 7.8 L I & O for Last 24 hours: Intake & Output 08/16/19 08/17/19 08/18/19 08/19/19 11:59 11:59 11:59 11:59 Intake Total 3205 / 3205 3053 / 3053 2134 / 2134 1515 / 1515 Output Total 600 / 600 700 / 700 90 / 90 2400 / 2400 Balance 2605 / 2605 2353 / 2353 2044 / 2044 -885 / -885 Weight 137 lb 144 lb 3 oz 146 lb 6 oz 144 lb 5 oz - Constitutional no acute distress - *Routine Respiratory Exam Absent: respiratory distress - *Routine Cardiovascular Exam Present: RRR - *Routine Abdominal Exam Present: soft Comments: wound margin clean and without erythema Progress Note: A&P (1) Small bowel obstruction Status: Acute Current Visit: Yes (2) Acute kidney injury Status: Resolved Current Visit: Yes (3) Dehydration Status: Resolved Current Visit: Yes (4) Ileus, postoperative Status: Acute Assessment and plan: very slowly improving. NG out yesterday. sips and chips cautiously Current Visit: Yes (5) Postoperative anemia Status: Acute Current Visit: Yes (6) Hypokalemia Status: Acute Assessment and plan: minimal response to replacement yesterday replace K+ check mag level Current Visit: Yes (7) Physical deconditioning Status: Acute Assessment and plan: continue PT Current Visit: Yes
[2019-08-20 07:30] LABS: Anion Gap 9.3 mEq/L (5-15); Calcium 7.8 mg/dL (8.5-10.1)
[2019-08-20 10:59] LABS: Microscopic, Urine URINE MICROSCOPIC (MICROSCOPIC)
[2019-08-20 11:00] LABS: Appearance,Urine CLEAR (Clear); Bilirubin,Urine Negative (Negative); Blood, Urine Negative (Negative); Color,Urine YELLOW (Yellow); Glucose,Urine (UA) Negative (Negative); Ketones,Urine Negative (Negative); Leukocyte Esterase,Urine Negative (Negative); PH,Urine 5.5 (5.0-8.5); Protein,Urine Negative (Negative); Urobilinogen,Urine 0.2 EU/dl (0.2)
--- NOTE | 2019-08-20 14:20 | Progress Note ---
Subjective Narrative: Ms. Araujo is an 89-year-old female status post exploratory laparotomy with small bowel resection on August 13, 2019 for small bowel obstruction. Today is postoperative day #7. Overall, no significant progress. Nausea. One episode of emesis earlier today after attempting Boost for nutrition. No fever or chills. Perhaps a small amount of flatus. No bowel movement. Exam Vital signs and Labs for Last 24 Hours: Temp Pulse Resp BP Pulse Ox 97.7 F 81 16 127/67 91 L 08/20/19 12:08/20/19 12:00 08/20/19 12:08/20/19 12:08/20/19 12:00 Laboratory Results - last 24 hr 08/20/19 06:17: Sodium 137, Potassium 4.3 D, Chloride 105, Carbon Dioxide 27, Anion Gap 9.3, BUN 12, Creatinine 0.91, Estimated Creat Clear 43, Estimated GFR 58 L, Est GFR ( Amer) 71, Glucose 117 H, Calcium 7.8 L 08/20/19 09:50: Urine Color Yellow, Urine Appearance Clear, Urine pH 5.5, Ur Specific [place] 1.020, Urine Protein Negative, Urine Glucose (UA) Negative, Urine Ketones Negative, Urine Blood Negative, Urine Nitrate Negative, Urine Bilirubin Negative, Urine Urobilinogen 0.2, Ur Leukocyte Esterase Negative, Urine RBC None, Urine WBC None, Ur Squamous Epith Cells 5-10, Urine Bacteria None I & O for Last 24 hours: Intake & Output 08/18/19 08/19/19 08/20/19 08/21/19 11:59 11:59 11:59 11:59 Intake Total 2134 / 2134 1615 / 1615 2758 / 2758 Output Total 90 / 90 2400 / 2400 950 / 950 Balance 2044 / 2044 -785 / -785 1808 / 1808 Weight 66.395 kg 65.459 kg 68.577 kg - Constitutional Comments: Mild distress. - *Routine Abdominal Exam Comments: Soft. Distended. Fullness over left upper and left lower quadrant. Voluntary guarding. No peritonitis. Progress Note: A&P (1) Small bowel obstruction Status: Acute Current Visit: Yes (2) Acute kidney injury Status: Resolved Current Visit: Yes (3) Dehydration Status: Resolved Current Visit: Yes (4) Ileus, postoperative Status: Acute Current Visit: Yes (5) Postoperative anemia Status: Acute Current Visit: Yes (6) Hypokalemia Status: Acute Current Visit: Yes (7) Physical deconditioning Status: Acute Current Visit: Yes Assessment and Plan for All Diagnoses:: Small bowel obstruction. Status post exploratory laparotomy. Small bowel resection. Operative note reviewed. No significant progress in the postoperative period. Today is postoperative day #7. Obtain CT imaging. Preference would be oral contrast however patient is nauseated with abdominal distention; doubt she will be able to tolerate oral contrast. Will attempt imaging without contrast. Electrolytes have improved. No significant laboratory abnormalities. Continue supportive care. Await CT results.
--- NOTE | 2019-08-21 08:27 | Progress Note ---
Subjective Narrative: Ms. Araujo is an 89-year-old female status post exploratory laparotomy with small bowel resection on August 13, 2019 for small bowel obstruction. Today is postoperative day #8. Over the past 24 hours, CT imaging has been completed based on failure to progress. Dilated stomach and proximal small bowel was noted. Interval NG tube was placed with adequate decompression. Placement confirmed with imaging earlier this morning. No small bowel dilation noted on current acute abdominal series. Patient reports that she is feeling "somewhat" better. No significant flatus or bowel movement still. No fever or chills. Family present at the bedside. Exam Vital signs and Labs for Last 24 Hours: Temp Pulse Resp BP Pulse Ox 97.7 F 76 16 114/48 L 92 L 08/21/19 07:51 08/21/19 07:51 08/21/19 07:51 08/21/19 07:51 08/21/19 07:51 Laboratory Results - last 24 hr 08/20/19 09:50: Urine Color Yellow, Urine Appearance Clear, Urine pH 5.5, Ur Specific [place] 1.020, Urine Protein Negative, Urine Glucose (UA) Negative, Urine Ketones Negative, Urine Blood Negative, Urine Nitrate Negative, Urine Bilirubin Negative, Urine Urobilinogen 0.2, Ur Leukocyte Esterase Negative, Urine RBC None, Urine WBC None, Ur Squamous Epith Cells 5-10, Urine Bacteria None I & O for Last 24 hours: Intake & Output 08/18/19 08/19/19 08/20/19 08/21/19 11:59 11:59 11:59 11:59 Intake Total 2134 / 2134 1615 / 1615 2758 / 2758 2614 / 2614 Output Total 90 / 90 2400 / 2400 950 / 950 1790 / 1790 Balance 2044 / 2044 -785 / -785 1808 / 1808 824 / 824 Weight 66.395 kg 65.459 kg 68.577 kg 68.237 kg - Constitutional Comments: No distress. Nontoxic. - *Routine Abdominal Exam Comments: Soft. Mildly distended. Less than yesterday. Less tender. No peritonitis. Progress Note: A&P (1) Small bowel obstruction Status: Acute Current Visit: Yes (2) Acute kidney injury Status: Resolved Current Visit: Yes (3) Dehydration Status: Resolved Current Visit: Yes (4) Ileus, postoperative Status: Acute Current Visit: Yes (5) Postoperative anemia Status: Acute Current Visit: Yes (6) Hypokalemia Status: Acute Current Visit: Yes (7) Physical deconditioning Status: Acute Current Visit: Yes Assessment and Plan for All Diagnoses:: 1. Small bowel obstruction. Status post exploratory laparotomy with adhesio lysis and small bowel resection. CT images have been reviewed. Findings seem to be most consistent with postsurgical changes. Component of obstruction is noted and reviewed in the official radiology interpretation. Images are difficult to understand secondary to retained barium and artifact affect. Patient is clinically improved. Still no significant major bowel function. Plan at this time is to continue NG tube decompression. Limit oral intake to ice chips and sips only. Repeat laboratory evaluation on August 22, 2019. In regards to nutrition, PICC line placement was attempted and difficult. Patient has requested no additional PICC line attempt today. I am agreeable with this although some decision on nutrition will need to be made in the next 24 hours. This may require central venous catheterization. Continue supportive care. No other significant changes. Address clinical changes as they occur.
[2019-08-22 06:02] LABS: Basophils % 0.3 % (0.1-2.0); Eosinophils # 0.1 K/mm3 (0.0-0.4); Hematocrit 30.7 % (37.0-47.0); Hemoglobin 9.8 g/dL (12.2-16.2); Lymphocytes % 13.6 % (10-50); Mean Corpuscular HGB Conc 32.1 g/dL (31.8-35.4); Mean Corpuscular Volume 91.9 fl (81-99); Mean Platelet Volume 9.3 fl (7.4-10.4); Monocytes # 0.3 K/mm3 (0.1-1.0); Monocytes % 4.5 % (1.7-9.3); Neutrophils # 5.6 K/mm3 (1.8-7.8); Neutrophils % 80.5 % (37.0-80.0); Platelet Count 212 K/mm3 (142-424); Red Blood Count 3.34 M/mm3 (4.20-5.40); Red Cell Distribution Width 14.3 % (11.5-17.5)
[2019-08-22 06:15] LABS: Albumin Level 1.5 gm/dL (3.4-5.0); Albumin/Globulin Ratio 0.4 (1.1-1.8); Anion Gap 11.8 mEq/L (5-15); Bilirubin,Total 0.5 mg/dL (0.2-1.0); Calcium 7.7 mg/dL (8.5-10.1); Globulin 3.7 gm/dl (1.3-3.2); Total Protein,Serum 5.2 gm/dL (6.4-8.2)
--- NOTE | 2019-08-22 08:43 | Progress Note ---
Subjective Patient reports: no new complaints, no flatus, no bowel movement Exam Vital signs and Labs for Last 24 Hours: Temp Pulse Resp BP Pulse Ox 97.9 F 65 16 106/42 L 92 L 08/22/19 08:00 08/22/19 08:00 08/22/19 08:00 08/22/19 08:00 08/22/19 08:00 Laboratory Results - last 24 hr 08/22/19 05:40: WBC 7.0, RBC 3.34 L, Hgb 9.8 L, Hct 30.7 L, MCV 91.9, MCH 29.5, MCHC 32.1, RDW 14.3, Plt Count 212 D, MPV 9.3, Neut % (Auto) 80.5 H, Lymph % (Auto) 13.6, [place] % (Auto) 4.5, Eos % (Auto) 1.0, Baso % (Auto) 0.3, Neut # (Auto) 5.6, Lymph # (Auto) 1.0, [place] # (Auto) 0.3, Eos # (Auto) 0.1, Baso # (Auto) 0.0 08/22/19 05:40: Sodium 138, Potassium 3.8, Chloride 104, Carbon Dioxide 26, Anion Gap 11.8, BUN 8 D, Creatinine 0.97, Estimated Creat Clear 43, Estimated GFR 54 L, Est GFR ( Amer) 66, Glucose 124 H, Calcium 7.7 L, Total Bilirubin 0.5, AST 22, ALT 17, Alkaline Phosphatase 55, Total Protein 5.2 L D, Albumin 1.5 L, Globulin 3.7 H, Albumin/Globulin Ratio 0.4 L I & O for Last 24 hours: Intake & Output 08/19/19 08/20/19 08/21/19 08/22/19 11:59 11:59 11:59 11:59 Intake Total 1615 / 1615 2758 / 2758 2614 / 2614 1945 / 1945 Output Total 2400 / 2400 950 / 950 1790 / 1790 2650 / 2650 Balance -785 / -785 1808 / 1808 824 / 824 -703 / -703 Weight 144 lb 5 oz 151 lb 3 oz 150 lb 7 oz 152 lb 7 oz Radiology Reports for the Last 24 Hours: No change in flat/upright films from today. - Constitutional no acute distress - *Routine Respiratory Exam Absent: respiratory distress - *Routine Cardiovascular Exam Present: RRR - *Routine Abdominal Exam Present: distended. Absent: rebound Progress Note: A&P (1) Small bowel obstruction Status: Acute Assessment and plan: The patient seemingly has an immediate postoperative obstruction at her anastomosis. The anastomosis was patent intraoperatively; however, a combination of edematous changes and possible internal luminal occlusion from barium/food particles has likely created near complete obstruction. I recommend PEG placement if possible to be followed by TPN administration. I have recomm ended reopening laparotomy with possible jejunojejunostomy. The patient is currently unwilling to consider operative intervention but states that she will "keep thinking about it". Current Visit: Yes (2) Acute kidney injury Status: Resolved Current Visit: Yes (3) Dehydration Status: Resolved Current Visit: Yes (4) Ileus, postoperative Status: Acute Current Visit: Yes (5) Postoperative anemia Status: Acute Current Visit: Yes (6) Hypokalemia Status: Acute Current Visit: Yes (7) Physical deconditioning Status: Acute Current Visit: Yes
[2019-08-22 14:59] LABS: Phosphorous 3.4 mg/dL (2.4-4.9)
--- NOTE | 2019-08-23 06:51 | Progress Note ---
Subjective Narrative: Patient had a bowel movement this morning. States that she feels less bloated. Still with appreciable NG output. Exam Vital signs and Labs for Last 24 Hours: Temp Pulse Resp BP Pulse Ox 98.3 F 103 H 18 129/51 L 93 L 08/23/19 04:00 08/23/19 04:00 08/23/19 04:00 08/23/19 04:00 08/23/19 04:00 Laboratory Results - last 24 hr 08/22/19 14:33: Phosphorus 3.4, Magnesium 1.6, Triglycerides 274 H, Cholesterol 115 L 08/22/19 14:44: POC Glucose 92 08/22/19 16:54: POC Glucose 113 H 08/22/19 20:40: POC Glucose 120 H 08/23/19 02:17: POC Glucose 144 H I & O for Last 24 hours: Intake & Output 08/20/19 08/21/19 08/22/19 08/23/19 11:59 11:59 11:59 11:59 Intake Total 2758 / 2758 2614 / 2614 [birth year] 1572 / 1572 Output Total 950 / 950 1790 / 1790 2650 / 2650 2650 / 2650 Balance 1808 / 1808 824 / 824 -703 / -703 -1078 / -1078 Weight 151 lb 3 oz 150 lb 7 oz 152 lb 7 oz 147 lb 1 oz Narrative: Her abdomen is somewhat distended. She has hypoactive bowel sounds. Her incision and wound is clean. Progress Note: A&P (1) Small bowel obstruction Status: Acute Assessment and plan: Small bowel follow-through today. Current Visit: Yes (2) Acute kidney injury Status: Resolved Current Visit: Yes (3) Dehydration Status: Resolved Current Visit: Yes (4) Ileus, postoperative Status: Acute Current Visit: Yes (5) Postoperative anemia Status: Acute Current Visit: Yes (6) Hypokalemia Status: Acute Current Visit: Yes (7) Physical deconditioning Status: Acute Current Visit: Yes
[2019-08-23 06:55] LABS: Basophils % 0.3 % (0.1-2.0); Eosinophils # 0.1 K/mm3 (0.0-0.4); Eosinophils % 0.8 % (0.1-12.0); Hematocrit 30.4 % (37.0-47.0); Hemoglobin 9.8 g/dL (12.2-16.2); Lymphocytes % 12.5 % (10-50); Mean Corpuscular HGB Conc 32.1 g/dL (31.8-35.4); Mean Corpuscular Volume 92.9 fl (81-99); Monocytes # 0.5 K/mm3 (0.1-1.0); Monocytes % 5.6 % (1.7-9.3); Neutrophils # 6.7 K/mm3 (1.8-7.8); Neutrophils % 80.8 % (37.0-80.0); Platelet Count 202 K/mm3 (142-424); Red Blood Count 3.27 M/mm3 (4.20-5.40); Red Cell Distribution Width 14.3 % (11.5-17.5); White Blood Count 8.2 K/mm3 (4.8-10.8)
[2019-08-23 07:07] LABS: Albumin Level 1.5 gm/dL (3.4-5.0); Albumin/Globulin Ratio 0.4 (1.1-1.8); Anion Gap 10.5 mEq/L (5-15); Bilirubin,Total 0.4 mg/dL (0.2-1.0); Calcium 7.8 mg/dL (8.5-10.1); Globulin 3.9 gm/dl (1.3-3.2); Total Protein,Serum 5.4 gm/dL (6.4-8.2)
--- NOTE | 2019-08-23 17:04 | Progress Note ---
Subjective Narrative: After patient's small bowel follow-through her NG tube inadvertently "came out". she states that she feels quite well without any nausea. I reviewed her small bowel follow-through with the radiologist. Findings reveal no evidence of any obstruction with contrast traversing through to the colon but there may be partial obstruction. Exam Vital signs and Labs for Last 24 Hours: Temp Pulse Resp BP Pulse Ox 99.0 F 90 14 125/64 98 08/23/19 16:00 08/23/19 16:00 08/23/19 16:00 08/23/19 16:00 08/23/19 16:00 Laboratory Results - last 24 hr 08/22/19 16:54: POC Glucose 113 H 08/22/19 20:40: POC Glucose 120 H 08/23/19 02:17: POC Glucose 144 H 08/23/19 05:36: POC Glucose 156 H 08/23/19 06:18: WBC 8.2, RBC 3.27 L, Hgb 9.8 L, Hct 30.4 L, MCV 92.9, MCH 29.8, MCHC 32.1, RDW 14.3, Plt Count 202, MPV 10.0, Neut % (Auto) 80.8 H, Lymph % (Auto) 12.5, [place] % (Auto) 5.6, Eos % (Auto) 0.8, Baso % (Auto) 0.3, Neut # (Auto) 6.7, Lymph # (Auto) 1.0, [place] # (Auto) 0.5, Eos # (Auto) 0.1, Baso # (Auto) 0.0 08/23/19 06:18: Sodium 136, Potassium 3.5, Chloride 103, Carbon Dioxide 26, Anion Gap 10.5, BUN 10, Creatinine 1.09 H, Estimated Creat Clear 38, Estimated GFR 47 L, Est GFR ( Amer) 57 L, Glucose 157 H, Calcium 7.8 L, Phosphorus 4.0, Magnesium 1.7, Total Bilirubin 0.4, AST 28 D, ALT 17, Alkaline Phosphatase 58, Total Protein 5.4 L, Albumin 1.5 L, Globulin 3.9 H, Albumin/Globulin Ratio 0.4 L 08/23/19 06:18: Triglycerides 208 H 08/23/19 12:25: POC Glucose 134 H 08/23/19 16:41: POC Glucose 104 I & O for Last 24 hours: Intake & Output 08/21/19 08/22/19 08/23/19 08/24/19 11:59 11:59 11:59 11:59 Intake Total 2614 / 2614 1945 / 1945 1572 / 1572 0 / 0 Output Total 1790 / 1790 2650 / 2650 2650 / 2650 Balance 824 / 824 -703 / -703 -1078 / -1078 0 / 0 Weight 150 lb 7 oz 152 lb 7 oz 147 lb 1 oz Progress Note: A&P (1) Small bowel obstruction Status: Acute Current Visit: Yes (2) Acute kidney injury Status: Resolved Current Visit: Yes (3) Dehydration Status: Resolved Current Visit: Yes (4) Ileus, postoperative Status: Acute Current Visit: Yes (5) Postoperative anemia Status: Acute Current Visit: Yes (6) Hypokalemia Status: Acute Current Visit: Yes (7) Physical deconditioning Status: Acute Current Visit: Yes Assessment and Plan for All Diagnoses:: In light of the patient's clinical tolerance with the nasogastric tube removed and due to the findings of lack of obstruction on the small bowel follow-through I will plan to leave the NG tube out at this time. Plan to limit to ice chips. I did inform her that she could still require operative intervention given the findings of possible partial obstruction on her imaging.
--- NOTE | 2019-08-24 08:34 | Progress Note ---
Subjective Patient reports: feels better, no flatus, bowel movement Narrative: Her nasogastric tube "fell out" yesterday. She has had no nausea or emesis since. She has requested discontinuation of her acyclovir as she states that it "makes (her) feel funny". Exam Vital signs and Labs for Last 24 Hours: Temp Pulse Resp BP Pulse Ox 98.4 F 97 H 18 113/47 L 90 L 08/24/19 04:00 08/24/19 04:00 08/24/19 04:00 08/24/19 04:00 08/24/19 04:00 Laboratory Results - last 24 hr 08/23/19 06:18: Triglycerides 208 H 08/23/19 12:25: POC Glucose 134 H 08/23/19 16:41: POC Glucose 104 08/23/19 21:07: POC Glucose 101 08/24/19 06:12: POC Glucose 176 H I & O for Last 24 hours: Intake & Output 08/21/19 08/22/19 08/23/19 08/24/19 11:59 11:59 11:59 11:59 Intake Total 2614 / 2614 [birth year] 1572 / 1572 1891 / 1891 Output Total 1790 / 1790 2650 / 2650 2650 / 2650 1575 / 1575 Balance 824 / 824 -703 / -703 -1078 / -1078 316 / 316 Weight 150 lb 7 oz 152 lb 7 oz 147 lb 1 oz 141 lb 4 oz Radiology Reports for the Last 24 Hours: Small bowel follow-through yesterday revealed a somewhat "tight" anastomosis. This was considered by radiology to be consistent with a partial obstruction. She had flow beyond the anastomosis and was essentially "ruled out" for complete obstruction. - Constitutional no acute distress - *Routine Respiratory Exam Absent: respiratory distress - *Routine Cardiovascular Exam Present: RRR - *Routine Abdominal Exam Present: soft Comments: Dressing in place. No cellulitis. Progress Note: A&P (1) Small bowel obstruction Status: Acute Assessment and plan: Small bowel follow-through yesterday reveals a "tight" anastomosis with no evidence of complete obstruction. Her nasogastric tube "fell out" yesterday and she "feels better this morning". Continue TPN for now Will not advance diet being on minimal sips/chips for now Acyclovir will be discontinued secondary to patient request Current Visit: Yes (2) Acute kidney injury Status: Resolved Current Visit: Yes (3) Dehydration Status: Resolved Current Visit: Yes (4) Ileus, postoperative Status: Acute Current Visit: Yes (5) Postoperative anemia Status: Resolved Current Visit: Yes (6) Hypokalemia Status: Resolved Current Visit: Yes (7) Physical deconditioning Status: Acute Assessment and plan: Continue physical therapy Current Visit: Yes
[2019-08-24 08:35] LABS: Basophils % 0.2 % (0.1-2.0); Eosinophils # 0.1 K/mm3 (0.0-0.4); Eosinophils % 1.4 % (0.1-12.0); Hematocrit 27.9 % (37.0-47.0); Hemoglobin 9.2 g/dL (12.2-16.2); Lymphocytes # 0.9 K/mm3 (0.7-4.5); Lymphocytes % 16.2 % (10-50); Mean Corpuscular HGB Conc 33.1 g/dL (31.8-35.4); Mean Corpuscular Volume 90.1 fl (81-99); Mean Platelet Volume 9.9 fl (7.4-10.4); Monocytes # 0.3 K/mm3 (0.1-1.0); Monocytes % 5.1 % (1.7-9.3); Neutrophils # 4.5 K/mm3 (1.8-7.8); Neutrophils % 77.1 % (37.0-80.0); Platelet Count 225 K/mm3 (142-424); Red Cell Distribution Width 14.1 % (11.5-17.5); White Blood Count 5.8 K/mm3 (4.8-10.8)
[2019-08-24 08:49] LABS: Albumin Level 1.5 gm/dL (3.4-5.0); Albumin/Globulin Ratio 0.4 (1.1-1.8); Anion Gap 7.7 mEq/L (5-15); Bilirubin,Total 0.3 mg/dL (0.2-1.0); Calcium 7.4 mg/dL (8.5-10.1); Globulin 3.6 gm/dl (1.3-3.2); Phosphorous 3.1 mg/dL (2.4-4.9); Total Protein,Serum 5.1 gm/dL (6.4-8.2)
[2019-08-24 08:52] LABS: Cholesterol 99 mg/dL (140-200); Triglycerides 289 mg/dL (30-200)
--- NOTE | 2019-08-25 06:47 | Progress Note ---
Subjective Patient reports: no new complaints Narrative: POD#12 She states that she has had "tiny bowel movements". She states that she "think(s) some gas has passed". Exam Vital signs and Labs for Last 24 Hours: Temp Pulse Resp BP Pulse Ox 98.2 F 72 17 128/59 L 92 L 08/25/19 04:00 08/25/19 04:00 08/25/19 04:00 08/25/19 04:00 08/25/19 04:00 Laboratory Results - last 24 hr 08/24/19 08:20: Sodium 137, Potassium 3.7, Chloride 104, Carbon Dioxide 29, Anion Gap 7.7, BUN 19 H D, Creatinine 0.97, Estimated Creat Clear 40, Estimated GFR 54 L, Est GFR ( Amer) 66, Glucose 159 H, Calcium 7.4 L, Phosphorus 3.1, Magnesium 2.1 D, Total Bilirubin 0.3, AST 19 D, ALT 14, Alkaline Phosphatase 49, Total Protein 5.1 L, Albumin 1.5 L, Globulin 3.6 H, Albumin/Globulin Ratio 0.4 L 08/24/19 08:20: WBC 5.8 D, RBC 3.10 L, Hgb 9.2 L, Hct 27.9 L, MCV 90.1, MCH 29.8, MCHC 33.1, RDW 14.1, Plt Count 225, MPV 9.9, Neut % (Auto) 77.1, Lymph % (Auto) 16.2, [place] % (Auto) 5.1, Eos % (Auto) 1.4, Baso % (Auto) 0.2, Neut # (Auto) 4.5, Lymph # (Auto) 0.9, [place] # (Auto) 0.3, Eos # (Auto) 0.1, Baso # (Auto) 0.0 08/24/19 08:20: Triglycerides 289 H, Cholesterol 99 L 08/24/19 11:05: POC Glucose 163 H 08/24/19 16:47: POC Glucose 135 H 08/24/19 21:04: POC Glucose 135 H 08/25/19 05:57: POC Glucose 169 H I & O for Last 24 hours: Intake & Output 08/22/19 08/23/19 08/24/19 08/25/19 11:59 11:59 11:59 11:59 Intake Total 1947 / 1946 1572 / 1572 1891 / 1891 1087 / 1087 Output Total 2650 / 2650 2650 / 2650 1575 / 1575 Balance -703 / -703 -1078 / -1078 316 / 316 1087 / 1087 Weight 152 lb 7 oz 147 lb 1 oz 141 lb 4 oz - Constitutional no acute distress - *Routine Respiratory Exam Absent: respiratory distress - *Routine Cardiovascular Exam Present: RRR - *Routine Abdominal Exam Present: soft Progress Note: A&P (1) Small bowel obstruction Status: Acute Current Visit: Yes (2) Ileus, postoperative Status: Acute Assessment and plan: slowly improving clears cautiously with [place]ze will begin enemas prn Current Visit: Yes (3) Postoperative anemia Status: Resolved Current Visit: Yes (4) Physical deconditioning Status: Acute Assessment and plan: continue PT Current Visit: Yes
[2019-08-25 11:29] LABS: Basophils % 0.6 % (0.1-2.0); Eosinophils # 0.1 K/mm3 (0.0-0.4); Eosinophils % 1.4 % (0.1-12.0); Hemoglobin 9.5 g/dL (12.2-16.2); Lymphocytes # 0.9 K/mm3 (0.7-4.5); Lymphocytes % 20.7 % (10-50); Mean Corpuscular HGB Conc 32.5 g/dL (31.8-35.4); Mean Corpuscular Volume 90.6 fl (81-99); Mean Platelet Volume 9.7 fl (7.4-10.4); Monocytes # 0.3 K/mm3 (0.1-1.0); Monocytes % 6.8 % (1.7-9.3); Neutrophils # 3.1 K/mm3 (1.8-7.8); Neutrophils % 70.5 % (37.0-80.0); Platelet Count 270 K/mm3 (142-424); Red Blood Count 3.22 M/mm3 (4.20-5.40); Red Cell Distribution Width 14.1 % (11.5-17.5); White Blood Count 4.4 K/mm3 (4.8-10.8)
[2019-08-25 11:32] LABS: Hematocrit 28.8 % (37.0-47.0)
[2019-08-25 11:43] LABS: Albumin Level 1.5 gm/dL (3.4-5.0); Albumin/Globulin Ratio 0.4 (1.1-1.8); Anion Gap 8.8 mEq/L (5-15); Bilirubin,Total 0.4 mg/dL (0.2-1.0); Calcium 7.7 mg/dL (8.5-10.1); Globulin 3.8 gm/dl (1.3-3.2); Phosphorous 3.6 mg/dL (2.4-4.9); Total Protein,Serum 5.3 gm/dL (6.4-8.2)
--- NOTE | 2019-08-26 06:54 | Progress Note ---
Subjective Patient reports: bowel movement Narrative: POD #13 Resting Exam Vital signs and Labs for Last 24 Hours: Temp Pulse Resp BP Pulse Ox 97.8 F 81 18 134/64 94 L 08/26/19 04:00 08/26/19 04:00 08/26/19 04:00 08/26/19 04:00 08/26/19 04:00 Laboratory Results - last 24 hr 08/25/19 11:10: Sodium 136, Potassium 3.8, Chloride 103, Carbon Dioxide 28, Anion Gap 8.8, BUN 20 H, Creatinine 0.83, Estimated Creat Clear 40, Estimated GFR 65, Est GFR ( Amer) 79, Glucose 141 H, Calcium 7.7 L, Phosphorus 3.6, Magnesium 2.0, Total Bilirubin 0.4, AST 21, ALT 13, Alkaline Phosphatase 52, Total Protein 5.3 L, Albumin 1.5 L, Globulin 3.8 H, Albumin/Globulin Ratio 0.4 L 08/25/19 11:10: WBC 4.4 L, RBC 3.22 L, Hgb 9.5 L, Hct 28.8 L, MCV 90.6, MCH 29.5, MCHC 32.5, RDW 14.1, Plt Count 270, MPV 9.7, Neut % (Auto) 70.5, Lymph % (Auto) 20.7, [place] % (Auto) 6.8, Eos % (Auto) 1.4, Baso % (Auto) 0.6, Neut # (Auto) 3.1, Lymph # (Auto) 0.9, [place] # (Auto) 0.3, Eos # (Auto) 0.1, Baso # ( Auto) 0.0 08/25/19 11:10: Triglycerides 197 08/25/19 16:53: POC Glucose 132 H 08/25/19 20:44: POC Glucose 105 08/26/19 05:25: POC Glucose 129 H I & O for Last 24 hours: Intake & Output 08/23/19 08/24/19 08/25/19 08/26/19 11:59 11:59 11:59 11:59 Intake Total 1572 / 1572 1891 / 1891 1971 / 1971 964 / 964 Output Total 2650 / 2650 1575 / 1575 800 / 800 Balance -1078 / -1078 316 / 316 1172 / 1172 964 / 964 Weight 147 lb 1 oz 141 lb 4 oz 141 lb 2 oz 145 lb 9 oz - *Routine Respiratory Exam Absent: respiratory distress - *Routine Cardiovascular Exam Present: RRR - *Routine Abdominal Exam Present: soft Progress Note: A&P (1) Small bowel obstruction Status: Acute Current Visit: Yes (2) Ileus, postoperative Status: Acute Assessment and plan: very slowly improving clear liquids today Current Visit: Yes (3) Postoperative anemia Status: Resolved Current Visit: Yes (4) Physical deconditioning Status: Acute Current Visit: Yes (5) Malnutrition Status: Acute Assessment and plan: continue TPN for now; slowly advance diet as she tolerates Current Visit: Yes
[2019-08-26 11:28] LABS: Basophils % 0.8 % (0.1-2.0); Eosinophils # 0.1 K/mm3 (0.0-0.4); Eosinophils % 1.7 % (0.1-12.0); Hematocrit 30.8 % (37.0-47.0); Hemoglobin 9.6 g/dL (12.2-16.2); Lymphocytes # 0.9 K/mm3 (0.7-4.5); Lymphocytes % 21.6 % (10-50); Mean Corpuscular HGB Conc 31.3 g/dL (31.8-35.4); Mean Corpuscular Volume 93.2 fl (81-99); Mean Platelet Volume 9.8 fl (7.4-10.4); Monocytes # 0.3 K/mm3 (0.1-1.0); Monocytes % 6.3 % (1.7-9.3); Neutrophils % 69.5 % (37.0-80.0); Platelet Count 300 K/mm3 (142-424); Red Blood Count 3.31 M/mm3 (4.20-5.40); Red Cell Distribution Width 14.3 % (11.5-17.5); White Blood Count 4.3 K/mm3 (4.8-10.8)
[2019-08-26 11:51] LABS: Anion Gap 10.9 mEq/L (5-15); Calcium 7.8 mg/dL (8.5-10.1)
[2019-08-27 07:15] LABS: Basophils % 0.8 % (0.1-2.0); Eosinophils # 0.1 K/mm3 (0.0-0.4); Eosinophils % 1.5 % (0.1-12.0); Hematocrit 29.3 % (37.0-47.0); Hemoglobin 9.5 g/dL (12.2-16.2); Lymphocytes # 1.1 K/mm3 (0.7-4.5); Lymphocytes % 23.3 % (10-50); Mean Corpuscular HGB Conc 32.6 g/dL (31.8-35.4); Mean Corpuscular Volume 90.8 fl (81-99); Mean Platelet Volume 9.1 fl (7.4-10.4); Monocytes # 0.4 K/mm3 (0.1-1.0); Monocytes % 7.7 % (1.7-9.3); Neutrophils # 3.2 K/mm3 (1.8-7.8); Neutrophils % 66.7 % (37.0-80.0); Platelet Count 299 K/mm3 (142-424); Red Blood Count 3.22 M/mm3 (4.20-5.40); Red Cell Distribution Width 14.3 % (11.5-17.5); White Blood Count 4.9 K/mm3 (4.8-10.8)
[2019-08-27 07:27] LABS: Anion Gap 12.9 mEq/L (5-15); Calcium 8.1 mg/dL (8.5-10.1); Phosphorous 4.2 mg/dL (2.4-4.9)
--- NOTE | 2019-08-27 09:16 | Progress Note ---
Subjective Narrative: She is currently resting. Per family and nurse report she "had a pretty good night". Her family states that she is tolerating full liquids but "only a tiny amount". She has very little appetite. Exam Vital signs and Labs for Last 24 Hours: Temp Pulse Resp BP Pulse Ox 97.6 F 87 18 132/61 93 L 08/27/19 08:00 08/27/19 08:57 08/27/19 08:57 08/27/19 08:00 08/27/19 08:57 Laboratory Results - last 24 hr 08/26/19 11:05: Sodium 137, Potassium 3.9, Chloride 103, Carbon Dioxide 27, Anion Gap 10.9, BUN 21 H, Creatinine 0.84, Estimated Creat Clear 41, Estimated GFR 64, Est GFR ( Amer) 78, Glucose 150 H, Calcium 7.8 L 08/26/19 11:05: Magnesium 2.0 08/26/19 11:05: WBC 4.3 L, RBC 3.31 L, Hgb 9.6 L, Hct 30.8 L, MCV 93.2, MCH 29.2, MCHC 31.3 L, RDW 14.3, Plt Count 300, MPV 9.8, Neut % (Auto) 69.5, Lymph % (Auto) 21.6, [place] % (Auto) 6.3, Eos % (Auto) 1.7, Baso % (Auto) 0.8, Neut # (Auto) 3.0, Lymph # (Auto) 0.9, [place] # (Auto) 0.3, Eos # (Auto) 0.1, Baso # (Auto) 0.0 08/26/19 11:05: Phosphorus 4.0 08/26/19 11:05: Triglycerides 231 H 08/26/19 11:18: POC Glucose 139 H 08/26/19 15:53: POC Glucose 135 H 08/26/19 20:35: POC Glucose 130 H 08/27/19 06:26: POC Glucose 144 H 08/27/19 06:50: WBC 4.9, RBC 3.22 L, Hgb 9.5 L, Hct 29.3 L, MCV 90.8, MCH 29.6, MCHC 32.6, RDW 14.3, Plt Count 299, MPV 9.1, Neut % (Auto) 66.7, Lymph % (Auto) 23.3, [place] % (Auto) 7.7, Eos % (Auto) 1.5, Baso % (Auto) 0.8, Neut # (Auto) 3.2, Lymph # (Auto) 1.1, [place] # (Auto) 0.4, Eos # (Auto) 0.1, Baso # (Auto) 0.0 08/27/19 06:50: Sodium 141, Potassium 3.9, Chloride 105, Carbon Dioxide 27, Anion Gap 12.9, BUN 20 H, Creatinine 1.02 D, Estimated Creat Clear 39, Estimated GFR 51 L, Est GFR ( Amer) 62 D, Glucose 156 H, Calcium 8.1 L, Phosphorus 4.2, Magnesium 2.0, Triglycerides 267 H I & O for Last 24 hours: Intake & Output 08/24/19 08/25/19 08/26/19 08/27/19 11:59 11:59 11:59 11:59 Intake Total 1891 / 1891 1971 / 1971 2163 / 2163 3139 / 3139 Output Total 1575 / 1575 800 / 800 Balance 316 / 316 1172 / 1172 2163 / 2163 3139 / 3139 Weight 141 lb 4 oz 141 lb 2 oz 145 lb 9 oz 141 lb 3 oz - Constitutional no acute distress - *Routine Respiratory Exam Absent: respiratory distress - *Routine Cardiovascular Exam Present: RRR - *Routine Abdominal Exam Comments: Dressing in place. No spreading cellulitis. Progress Note: A&P (1) Small bowel obstruction Status: Acute Current Visit: Yes (2) Ileus, postoperative Status: Acute Assessment and plan: very slowly improving Current Visit: Yes (3) Postoperative anemia Status: Resolved Current Visit: Yes (4) Physical deconditioning Status: Acute Assessment and plan: continue PT Current Visit: Yes (5) Malnutrition Status: Acute Assessment and plan: Continue TPN for now as she has minimal intake with regard to full liquids. Continue to encourage slow advancement of the quantity of intake with concentration on higher nutritive content such as Ensure/Boost supplementation. Current Visit: Yes
[2019-08-28 06:15] LABS: Basophils % 0.6 % (0.1-2.0); Eosinophils # 0.1 K/mm3 (0.0-0.4); Eosinophils % 1.5 % (0.1-12.0); Hemoglobin 9.2 g/dL (12.2-16.2); Lymphocytes # 1.4 K/mm3 (0.7-4.5); Lymphocytes % 24.8 % (10-50); Mean Corpuscular Volume 92.9 fl (81-99); Mean Platelet Volume 9.3 fl (7.4-10.4); Monocytes # 0.5 K/mm3 (0.1-1.0); Monocytes % 8.3 % (1.7-9.3); Neutrophils # 3.8 K/mm3 (1.8-7.8); Neutrophils % 64.9 % (37.0-80.0); Platelet Count 272 K/mm3 (142-424); Red Blood Count 3.11 M/mm3 (4.20-5.40); Red Cell Distribution Width 14.7 % (11.5-17.5); White Blood Count 5.8 K/mm3 (4.8-10.8)
[2019-08-28 06:19] LABS: Hematocrit 28.9 % (37.0-47.0)
[2019-08-28 06:27] LABS: Anion Gap 12.2 mEq/L (5-15); Calcium 8.3 mg/dL (8.5-10.1)
[2019-08-28 06:31] LABS: Phosphorous 4.2 mg/dL (2.4-4.9)
--- NOTE | 2019-08-28 09:00 | Progress Note ---
Subjective Narrative: She has continued to tolerate small amounts of full liquids. She states that she "gets full easily". She continues to have bowel function. She has requested "something more than (full liquids)". She states that she is "just worn out right now". Exam Vital signs and Labs for Last 24 Hours: Temp Pulse Resp BP Pulse Ox 98.2 F 72 18 128/64 94 L 08/28/19 07:43 08/28/19 08:34 08/28/19 08:34 08/28/19 07:43 08/28/19 08:34 Laboratory Results - last 24 hr 08/27/19 11:34: POC Glucose 134 H 08/27/19 16:20: POC Glucose 131 H 08/27/19 20:17: POC Glucose 139 H 08/28/19 05:50: Sodium 139, Potassium 4.2, Chloride 104, Carbon Dioxide 27, Anion Gap 12.2, BUN 19 H, Creatinine 1.04 H, Estimated Creat Clear 38, Estimated GFR 50 L, Est GFR ( Amer) 61, Glucose 148 H, Calcium 8.3 L 08/28/19 05:50: WBC 5.8, RBC 3.11 L, Hgb 9.2 L, Hct 28.9 L, MCV 92.9, MCH 29.7, MCHC 32.0, RDW 14.7, Plt Count 272, MPV 9.3, Neut % (Auto) 64.9, Lymph % (Auto) 24.8, [place] % (Auto) 8.3, Eos % (Auto) 1.5, Baso % (Auto) 0.6, Neut # (Auto) 3.8, Lymph # (Auto) 1.4, [place] # (Auto) 0.5, Eos # (Auto) 0.1, Baso # (Auto) 0.0 08/28/19 05:50: Phosphorus 4.2, Magnesium 2.0, Triglycerides 323 H I & O for Last 24 hours: Intake & Output 08/25/19 08/26/19 08/27/19 08/28/19 11:59 11:59 11:59 11:59 Intake Total 1971 / 19713 / 3 313 / 3138 Output Total 800 / 800 Balance 1172 / 1172 2163 / 2163138 / 3138 Weight 141 lb 2 oz 145 lb 9 oz 141 lb 3 oz 140 lb 2 oz - Constitutional no acute distress - *Routine Respiratory Exam Absent: respiratory distress - *Routine Cardiovascular Exam Present: RRR - *Routine Abdominal Exam Present: soft Comments: Dressing intact. No cellulitis. Progress Note: A&P (1) Small bowel obstruction Status: Acute Current Visit: Yes (2) Ileus, postoperative Status: Acute Assessment and plan: Continue to resolve. She has a very poor appetite but does seem to tolerate full liquids. She has requested "more". Her diet will be advanced to "pured". Current Visit: Yes (3) Postoperative anemia Status: Resolved Current Visit: Yes (4) Physical deconditioning Status: Acute Assessment and plan: Continue physical therapy Current Visit: Yes (5) Malnutrition Status: Acute Assessment and plan: Likely discontinue TPN soon as she tolerates more in terms of quality/quantity. Current Visit: Yes
[2019-08-29 06:21] LABS: Basophils % 0.7 % (0.1-2.0); Eosinophils # 0.1 K/mm3 (0.0-0.4); Eosinophils % 2.3 % (0.1-12.0); Hemoglobin 9.7 g/dL (12.2-16.2); Lymphocytes # 1.4 K/mm3 (0.7-4.5); Lymphocytes % 24.7 % (10-50); Mean Corpuscular HGB Conc 32.3 g/dL (31.8-35.4); Mean Platelet Volume 9.2 fl (7.4-10.4); Monocytes # 0.5 K/mm3 (0.1-1.0); Monocytes % 9.4 % (1.7-9.3); Neutrophils # 3.6 K/mm3 (1.8-7.8); Neutrophils % 62.8 % (37.0-80.0); Platelet Count 296 K/mm3 (142-424); Red Blood Count 3.26 M/mm3 (4.20-5.40); Red Cell Distribution Width 14.7 % (11.5-17.5); White Blood Count 5.8 K/mm3 (4.8-10.8)
[2019-08-29 06:47] LABS: Anion Gap 13.2 mEq/L (5-15); Calcium 8.6 mg/dL (8.5-10.1); Phosphorous 4.1 mg/dL (2.4-4.9)
--- NOTE | 2019-08-29 09:36 | Progress Note ---
Subjective Patient reports: flatus, bowel movement Narrative: No nausea or vomiting with slow advancement of diet. She states that she feels "very weak". Exam Vital signs and Labs for Last 24 Hours: Temp Pulse Resp BP Pulse Ox 98.3 F 92 H 20 146/60 H 96 08/29/19 08:00 08/29/19 08:00 08/29/19 08:00 08/29/19 08:00 08/29/19 08:00 Laboratory Results - last 24 hr 08/28/19 11:35: POC Glucose 116 H 08/28/19 16:47: POC Glucose 131 H 08/28/19 20:38: POC Glucose 140 H 08/29/19 06:01: POC Glucose 143 H 08/29/19 06:05: WBC 5.8, RBC 3.26 L, Hgb 9.7 L, Hct 30.0 L, MCV 92.0, MCH 29.7, MCHC 32.3, RDW 14.7, Plt Count 296, MPV 9.2, Neut % (Auto) 62.8, Lymph % (Auto) 24.7, [place] % (Auto) 9.4 H, Eos % (Auto) 2.3, Baso % (Auto) 0.7, Neut # (Auto) 3.6, Lymph # (Auto) 1.4, [place] # (Auto) 0.5, Eos # (Auto) 0.1, Baso # (Auto) 0.0 08/29/19 06:05: Sodium 139, Potassium 4.2, Chloride 103, Carbon Dioxide 27, Anion Gap 13.2, BUN 20 H, Creatinine 1.03 H, Estimated Creat Clear 38, Estimated GFR 51 L, Est GFR ( Amer) 61, Glucose 143 H, Calcium 8.6, Phosphorus 4.1, Magnesium 2.1, Triglycerides 273 H I & O for Last 24 hours: Intake & Output 08/26/19 08/27/19 08/28/19 08/29/19 11:59 11:59 11:59 11:59 Intake Total 2162 / 2162 313 / 313 1894 / 1894 3482 / 3482 Balance 2163 / 216 3139 / 3139 1894 / 1894 3482 / 3482 Weight 145 lb 9 oz 141 lb 3 oz 140 lb 2 oz 138 lb 4 oz - Constitutional no acute distress - *Routine Respiratory Exam Absent: respiratory distress - *Routine Cardiovascular Exam Present: RRR - *Routine Abdominal Exam Present: soft Comments: Small openings on incision are packed with no sign of significant drainage or cellulitis. Good granulation tissue. Progress Note: A&P (1) Small bowel obstruction Status: Acute Current Visit: Yes (2) Ileus, postoperative Status: Acute Assessment and plan: Resolving. She continues to tolerate very slow advancement of her diet. Current Visit: Yes (3) Postoperative anemia Status: Resolved Current Visit: Yes (4) Physical deconditioning Status: Acute Assessment and plan: Continue physical therapy. Placement for ongoing rehab pending. Current Visit: Yes (5) Malnutrition Status: Acute Assessment and plan: Continue to encourage high-quality intake (boost/Ensure). TPN will be discontinued as she has continued to tolerate advancement of her diet. Current Visit: Yes
--- NOTE | 2019-08-30 07:43 | Progress Note ---
Subjective Patient reports: feels better, flatus, bowel movement Exam Vital signs and Labs for Last 24 Hours: Temp Pulse Resp BP Pulse Ox 98.3 F 84 18 115/55 L 94 L 08/30/19 04:00 08/30/19 04:00 08/30/19 04:00 08/30/19 04:00 08/30/19 04:00 Laboratory Results - last 24 hr 08/29/19 10:53: POC Glucose 126 H 08/29/19 16:31: POC Glucose 108 08/29/19 20:28: POC Glucose 111 H 08/30/19 06:07: POC Glucose 120 H I & O for Last 24 hours: Intake & Output 08/27/19 08/28/19 08/29/19 08/30/19 11:59 11:59 11:59 11:59 Intake Total 3139 / 3139 1894 / 1894 3542 / 3542 510 / 510 Balance 3139 / 3139 1894 / 1894 3542 / 3542 510 / 510 Weight 141 lb 3 oz 140 lb 2 oz 138 lb 4 oz 133 lb 6 oz - Constitutional no acute distress - *Routine Respiratory Exam Absent: respiratory distress - *Routine Cardiovascular Exam Present: RRR - *Routine Abdominal Exam Present: soft Progress Note: A&P (1) Small bowel obstruction Status: Acute Current Visit: Yes (2) Ileus, postoperative Status: Acute Assessment and plan: Continuing to resolve Current Visit: Yes (3) Postoperative anemia Status: Resolved Current Visit: Yes (4) Physical deconditioning Status: Acute Assessment and plan: Discharge to rehab facility today Current Visit: Yes (5) Malnutrition Status: Acute Assessment and plan: Slowly increasing volume of intake continue Pured/babyfood diet for now Current Visit: Yes
--- NOTE | 2019-08-30 07:44 | Discharge Summary ---
General - General Admission date:: 08/12/19 Discharge date: 08/30/19 HPI HPI: This is an 89-year-old female who presented overnight to the emergency department with increasing abdominal pain and mild distention. Radiographic evidence revealed changes consistent with possible small bowel obstruction the surgical service was contacted for admission. She states that she continues to pass some flatus as of "yesterday or last night". She states that she had a bowel movement overnight. No nausea. One episode of emesis after "drinking soda water". from ED eval: Complains of diffuse upper abdominal pain since about 4 PM today. States that she only vomited when she drank some soda water. Had a bowel movement tonight that was normal. No fever. Pain radiates to her back. Denies previous similar pain. She had some heartburn yesterday and treated with omeprazole with relief. She says that she thought on Thursday 4 days ago she was developing UTI. She had some low back pain and burning. She started on a cephalosporin antibiotic at that time that Dr. De Leon gives her for recurrent UTI. Those symptoms got better. She also says that she gets recurrent shingles and keeps a prescription for famciclovir. She took that last week. Prior cholecystectomy, partial colectomy due to diverticulitis, hysterectomy. Hospital Course Hospital Course: The patient underwent exploratory laparotomy with complex lysis of adhesions and partial small bowel resection. Please see operative report for detail. Postoperatively she experienced an extremely extended ileus and eventually underwent a repeat CT scan that was consistent with possible partial obstruction versus severe ileus. A follow-up repeat small bowel follow-through did reveal some slow transit through the anastomosis; however, no complete obstruction noted. After a week of minimal to no improvement with regard to bowel function she was started on TPN. She did experience some physical deconditioning and physical therapy was consulted for evaluation and management. She continued to have the ability to ambulate but recommendations for ongoing rehab were made by physical therapy. She did begin to show slow signs of improvement with regard to bowel function and was advanced to a pured/babyfood diet. She continued to have bowel function and her TPN was discontinued. Once arrangements for transfer to a alf facility were made she was deemed appropriate for discharge on 08/30/2019. Objective Vital signs: Temp Pulse Resp BP Pulse Ox 98.3 F 84 18 115/55 L 94 L 08/30/19 04:00 08/30/19 04:00 08/30/19 04:00 08/30/19 04:00 08/30/19 04:00 no acute distress - *Routine HEENT Exam Head: Present: normocephalic, atraumatic - *Routine Neck Exam Present: full ROM - Routine Chest/Breast/Axilla Exam Chest wall: Absent: tenderness - *Routine Respiratory Exam Absent: respiratory distress - *Routine Cardiovascular Exam Present: RRR - *Routine Abdominal Exam Present: soft - *Routine Extremities Exam Present: full ROM. Absent: cyanosis, clubbing - Routine Back/Spine/Pelvis Exam Back/Spine: Present: full ROM - *Routine Skin Exam Absent: erythema - *Routine Neurological Exam Present: alert - Routine Psychiatric Exam Present: normal affect Results Labs on day of discharge: Labs from last 24 hours 08/30/19 08/29/19 08/29/19 06:07 20:28 16:31 POC Glucose 120 H 111 H 108 08/29/19 10:53 POC Glucose 126 H DS: Diagnosis - Discharge Diagnosis (1) Small bowel obstruction Status: Acute (2) Ileus, postoperative Status: Acute (3) Postoperative anemia Status: Resolved (4) Physical deconditioning Status: Acute (5) Malnutrition Status: Acute Discharge Plan - Patient Discharge Instructions ACTIVITY: Ambulate as tolerated DIET: continue same diet, other Additional Instructions: Pured/babyfood diet Patient Instructions: Small Bowel Resection, Small Bowel Obstruction, DI for Small Bowel Obstruction, DI for Small Bowel Resection, DI for Surgical Site Infection - Follow up Plan Follow up with: Jacob Collazo MD [Staff Physician] - 2 weeks Disposition: [facility] Home Medications: Home Medications Medication Instructions Recorded Confirmed Type omeprazole 40 mg capsule,delayed 40 mg PO DAILY cap 10/06/17 08/12/19 History release Fluconazole 150 mg PO QWEEK 06/30/19 08/12/19 History cephalexin 500 mg capsule 500 mg PO Q12H 10 Days #20 cap 06/30/19 08/12/19 Rx Ergocalciferol (Vitamin D2) 1 cap PO WEEKLY 08/12/19 08/12/19 History [Drisdol 50,000 units (1.25mg) capsule] Famciclovir 500 mg PO Q8 08/12/19 08/12/19 History Prescriptions/Medication Reconciliation: Continued omeprazole 40 mg capsule,delayed release 40 mg PO DAILY cap cephalexin 500 mg capsule 500 mg PO Q12H 10 Days #20 cap Fluconazole 150 mg PO QWEEK Ergocalciferol (Vitamin D2) [Drisdol 50,000 units (1.25mg) capsule] 1 cap PO WEEKLY Famciclovir 500 mg PO Q8 - Problem Reconciliation Problems Reviewed?: Yes
== END 2019-08-30 09:30 | DRG 329 ==
LOC: ER 00:37 → 2ND 03:16
PROVIDERS: ADMIT Surgery; ATTEND Surgery
CPT/HCPCS: 36415; 36569; 71010; 71045; 74000; 74018; 74021; 74022; 74176; 74177; 74250; 80048; 80053; 81001; 82150; 82465; 82550; 82553; 82962; 83605; 83690; 83735; 84100; 84478; 84484; 85007; 85014; 85018; 85025; 86850; 87040; 88307; 93005; 96374; 96375; 97110; 97116; 97162; 97530; 99284; C1751; J1335; J2405; P9016; Q9967

== ENCOUNTER 2019-09-21 11:36 | Inpatient (IN) ==
--- NOTE | 2019-09-21 12:04 | Emergency Department Note ---
ED Disposition Clinical Impression: Intestinal abscess, Fecal impaction in rectum, Peritonitis Abdominal pain Qualifiers: Abdominal location: generalized Qualified Code(s): R10.84 - Generalized abdominal pain Disposition: Admitted as Observation Condition on Discharge: Fair Time of Disposition: 14:26 - Critical Care Critical Care Time: No Attestation: On 09/21/19, the high probability of a clinically significant, sudden or life threatening deterioration of the following system(s) required my full and direct attention, intervention and personal management. The time I documented below is in addition to time spent performing reported procedures but includes the following listed in this critical care notation. Medical Decision Making - Jose Inquiry Pt receiving controlled substance: No Vital Signs: 09/21/19 11:38 09/21/19 15:10 09/21/19 16:55 Temperature 97.5 F L Temperature Source Oral Pulse Rate Pulse Rate [Radial] 104 H 75 Respiratory Rate 18 16 Blood Pressure Blood Pressure [Right Arm] 139/63 127/51 L Blood Pressure Mean [Right Arm] 88 76 Blood Pressure Source Blood Pressure Source [Right Arm] Automatic Cuff Automatic Cuff Blood Pressure Position Blood Pressure Position [Right Arm] Sitting Supine 02 Sat by Pulse Oximetry 97 95 Oxygen Delivery Method Room Air Room Air Room Air 09/21/19 17:02 Temperature 97.5 F L Temperature Source Oral Pulse Rate 75 Pulse Rate [Radial] Respiratory Rate 18 Blood Pressure 127/51 L Blood Pressure [Right Arm] Blood Pressure Mean [Right Arm] Blood Pressure Source Automatic Cuff Blood Pressure Source [Right Arm] Blood Pressure Position Sitting Blood Pressure Position [Right Arm] 02 Sat by Pulse Oximetry Oxygen Delivery Method Room Air - Lab Data Lab Results 09/21/19 12:13: WBC 12.0 H, RBC 4.33, Hgb 12.7, Hct 39.2, MCV 90.5, MCH 29.3, MCHC 32.4, RDW 15.6, Plt Count 309, MPV 8.1, Neut % (Auto) 66.4, Lymph % (Auto) 30.2, [place] % (Auto) 2.5, Eos % (Auto) 0.6, Baso % (Auto) 0.3, Neut # (Auto) 8.0 H, Lymph # (Auto) 3.6, [place] # (Auto) 0.3, Eos # (Auto) 0.1, Baso # (Auto) 0.0 09/21/19 12:13: Sodium 135 L, Potassium 4.3, Chloride 98, Carbon Dioxide 25, Anion Gap 16.3 H, BUN 33 H, Creatinine 0.90, Estimated Creat Clear 32, Estimated GFR 59, Est GFR ( Amer) 72, Glucose 149 H, Calcium 9.9, Total Bilirubin 0.8, AST 55 H, ALT 53, Alkaline Phosphatase 126, Total Protein 8.0, Albumin 3.7, Globulin 4.3 H, Albumin/Globulin Ratio 0.9 L 09/21/19 12:13: Troponin I < 0.01 09/21/19 15:42: Troponin I < 0.01 Result diagrams: 09/22/19 06:20 09/22/19 06:20 Orders (Tests/Meds): ED MEDICATIONS Generic Name Dose Route Start Last Admin Trade Name Freq PRN Reason Stop Dose Admin Fluconazole 150 mg 09/22/19 09:00 Diflucan 100mg Tablet PO 09/29/19 08:59 WEEKLY JANIE Sodium Chloride 1,000 mls @ 150 mls/hr 09/21/19 18:37 09/22/19 04:31 Sod Chlor 0.9% 1000ml Bag IV 10/21/19 14:14 150 mls/hr .Q6H40M JANIE Administration Ertapenem 1 gm/ Sodium 50 mls @ 100 mls/hr 09/22/19 13:00 Chloride IV 10/05/19 16:29 1300 JANIE Metronidazole 500 mg in 100 mls @ 100 mls/hr 09/22/19 01:00 09/22/19 01:00 Flagyl 500mg/100ml Ivpb IV 10/06/19 00:59 100 mls/hr Q8H JANIE Administration Mineral Oil 133 ml 09/21/19 19:47 Mineral Oil Enema 133ml RC 10/21/19 19:46 NEEDED PRN Constipation Mirtazapine 15 mg 09/22/19 09:00 Remeron 15mg Tablet PO 10/22/19 08:59 DAILY JANIE Morphine Sulfate 2 mg 09/21/19 19:47 09/21/19 21:04 Morphine 2mg/Ml Syringe IV 10/21/19 19:46 2 mg Q4HP PRN Administration Moderate to Severe Pain Sodium Chloride 10 ml 09/21/19 18:37 Saline Flush 10ml Syringe IV 10/21/19 15:41 NEEDED PRN Maintain IV Site Discontinued Medications Generic Name Dose Route Start Last Admin Trade Name Yecenia PRN Reason Stop Dose Admin Sodium Chloride 1,000 mls @ 999 mls/hr 09/21/19 12:00 09/21/19 11:51 Sod Chlor 0.9% 1000ml Bag IV 09/21/19 13:00 999 mls/hr .Q1H1M JANIE Administration Sodium Chloride 1,000 mls @ 150 mls/hr 09/21/19 14:15 09/21/19 17:08 Sod Chlor 0.9% 1000ml Bag IV 10/21/19 14:14 150 mls/hr .Q6H40M JANIE Administration Ertapenem 1 gm/ Sodium 50 mls @ 100 mls/hr 09/21/19 16:30 09/21/19 17:08 Chloride IV 10/05/19 16:29 100 mls/hr 1300 JANIE Administration Metronidazole 500 mg in 100 mls @ 100 mls/hr 09/21/19 17:00 09/21/19 17:56 Flagyl 500mg/100ml Ivpb IV 10/05/19 16:59 100 mls/hr Q8H JANIE Administration Metronidazole 500 mg in 100 mls @ 100 mls/hr 09/22/19 01:00 09/22/19 01:37 Flagyl 500mg/100ml Ivpb IV 10/05/19 16:59 100 mls/hr Q8H JANIE Administration Dextrose/Sodium Chloride 1,000 mls @ 100 mls/hr 09/21/19 18:37 09/22/19 04:30 Dextrose 5%-0.45% Nacl Iv Soln IV 10/21/19 18:36 Not Given .Q10H JANIE Metronidazole 500 mg in 100 mls @ 100 mls/hr 09/21/19 18:37 09/21/19 18:50 Flagyl 500mg/100ml Ivpb IV 10/05/19 18:36 Not Given Q8H JANIE Protocol Ertapenem 1 gm/ Sodium 50 mls @ 100 mls/hr 09/21/19 18:37 09/21/19 18:50 Chloride IV 10/05/19 18:36 Not Given Q24H JANIE Protocol Mirtazapine 15 mg 09/22/19 09:00 Remeron 15mg Tablet PO 10/22/19 08:59 DAILY JANIE Ondansetron HCl 4 mg 09/21/19 12:46 09/21/19 12:50 Zofran 4mg/2ml Vial IV 09/21/19 12:47 4 mg ONCE ONE Administration Sodium Chloride 10 ml 09/21/19 15:42 Saline Flush 10ml Syringe IV 10/21/19 15:41 NEEDED PRN Maintain IV Site Sodium Chloride 10 ml 09/21/19 18:37 Saline Flush 10ml Syringe IV 10/21/19 18:36 NEEDED PRN Maintain IV Site - CT Data CT Scan: Abdomen Time Received: 14:[address] Reviewed: Yes: I have reviewed the patient's CT results Findings Narrative: LOWER THORAX: There is some mild atelectatic change in the left lung base. There is faint opacity noted in the right lower lobe posteriorly and could be related to some early pneumonitis. ABDOMEN & PELVIS: Prior cholecystectomy with mild biliary ectasia. The spleen, adrenal glands, and pancreas have an unremarkable appearance. There is mild prominence of the renal pelves on both sides. There has been prior surgery with spillage of barium into the peritoneum. This exam is limited without oral contrast. There is no evidence of small-bowel obstruction at this time. There is a moderate amount of retained colonic feces. There are multiple fluid collections with peripheral areas of increased density. These are multilocular in nature and are located in the right lower quadrant, left mid abdominal region, left upper quadrant, and left lower quadrant. Some of these collections may contain air such is 1 located in the left mid abdominal region. This is difficult to ascertain without small bowel contrast. There is a moderate amount of feces in the rectosigmoid region. The urinary bladder is distended IMPRESSION: 1. There are multiple complex fluid collections throughout the abdomen with peripheral hyperdensity loculations and some of which contain air in the left lower quadrant. This may represent sequela from barium peritonitis. Cannot determine if these are sterile or infected. There is an air-fluid level within 1 the collections in the left lower quadrant suspicious for abscess. Repeat exam with oral contrast may better delineate the actual extent of the fluid collections.. 2. Constipation with rectal fecal impaction Dictated by: Rashad Rose MD 09/21/2019 14:02 Electronically signed by Rashad Rose MD in [place] 09/21/2019 14:02 - ECG Data Tracing #1 Normal sinus rhythm with a heart rate of 84 bpm, normal P waves, normal MT i nterval, narrow complex QRS pattern, left axis deviation, nonspecific ST-T changes - Physician Consults Physician Consulted: Dr. Guardado Time: 14:22 Reason -: Admission Comment/Response: Discussed with Dr. Guardado, regarding the patient and plan to get the patient admitted to the floor for surgical consult and further management. Additional Consult: Dr. Collazo Time: 14:47 Reason -: Pt condition Comment/Response: Discussed with Dr. Collazo regarding the patient and he advised that he would like the radiologist to get the abscess drained through CT-guided drainage. If our radiologist would not be able to drain it through CT-guided then he wants the patient to be transferred to [facility] unless the patient of the family members would not want any further intervention and would only want IV and medical management for the abscess. - Reevaluation(s) Time: 13:24 Reevaluation #1: Patient was having on and off nausea and vomiting sensation. She had vomited twice in the emergency department. She had to be given Zofran for the same. Does not complain of much of pain. Time: 14:24 Reevaluation #3: Discussed with Dr. Rose regarding the patient and he advised that the patient is not a candidate for interventional radiology drainage since the fluids are very small pockets and in large number. The patient may be suitable for antibiotics and medical management at this time. He states he spoke with Dr. Collazo regarding the same. Discussed with Dr. Collazo regarding the patient and he is agreeable to admit the patient for IV antibiotic management at this time. Reevaluation #2: Discussed the lab findings and the CT scan finding with the family members and the patient and plan to get the patient admitted to the floor after discussing with Dr. Guardado. General Adult HPI - General Chief complaint: Nausea/Vomiting/Diarrhea Stated complaint: weakness vomiting can't eat Time Seen by Provider: 09/21/19 11:50 Mode of Arrival: Wheelchair Limitations: No Limitations Description of Symptoms (Recalled from ER Triage Doc. by RN): Per [facility] patient has had some nausea and vomiting for a couple of days. Recent bowel obstruction surgery. Patient has lost 20 pound in a month - History of Present Illness HPI narrative: 89-year-old female was brought in from the [facility] by her family members for having nausea, vomiting, generalized weakness and light body ache along with abdominal pain. Patient had small bowel obstruction about a month and a half ago. She was in our hospital and had lysis of the adhesions done for the small bowel obstruction. She was on TPN for a while during the hospital stay and was discharged to the [facility] for rehabilitation. She has been in the [facility] for almost a month but for the last week or so her condition seems to be getting worse according to the family. She has not been eating or drinking well. She seems to have lost almost 20 pounds in the last 2 weeks. She has a decreased appetite and has not had good bowel movements. The family finally decided to bring the patient to the emergency department since the patient started complaining of not feeling well and wanted to come to the emergency department. No history of fever. No hx of chills. Onset (ago): week(s) Radiation: non-radiation Severity: moderate Consistency: constant Relieving factors: none Exacerbating factors: none - Related Data Home Medications Medication Instructions Recorded Confirmed Fluconazole 150 mg PO QWEEK 06/30/19 09/21/19 Ergocalciferol (Vitamin D2) 1 cap PO WEEKLY 08/12/19 09/21/19 [Drisdol 50,000 units (1.25mg) capsule] mirtazapine 15 mg tablet 15 mg PO DAILY 09/13/19 09/21/19 polyethylene glycol 3350 17 17 g PO DAILY 09/13/19 09/21/19 gram/dose oral powder Famotidine [Pepcid 20mg Tablet] 20 mg PO BID 09/21/19 09/21/19 Allergies Allergy/AdvReac Type Severity Reaction Status Date / Time acetaminophen Allergy Unknown DIFFICULTY Verified 09/13/19 09:10 [From DARVOCET-N] BREATHING ciprofloxacin [From CIPRO] Allergy Unknown DIFFICULTY Verified 09/13/19 09:10 BREATHING Penicillins [PENICILLINS] Allergy Unknown DIFFICULTY Verified 09/13/19 09:10 BREATHING propoxyphene Allergy Unknown DIFFICULTY Verified 09/13/19 09:10 [From DARVOCET-N] BREATHING doxycycline Allergy Unknown Verified 09/22/19 07:45 allergy reaction hydrocodone Allergy Vomiting Verified 09/13/19 09:10 ibuprofen [From Advil] Allergy Vomiting Verified 09/13/19 09:10 Sulfa (Sulfonamide Allergy Unknown Verified 09/22/19 07:45 Antibiotics) allergy reaction valacyclovir [From Valtrex] Allergy Vomiting Verified 09/13/19 09:10 [facility] History - Hepatitis A Screen Drug use history?: No High risk sexual behaviors?: No History of sexually transmitted infection?: No Currently employed?: No Childcare worker?: No Do you have indoor plumbing?: Yes Do you have electricity?: Yes Attestation statement:: This patient has been screened for Hepatitis A risk factors. I have reviewed the patient's past medical history: Yes Medical History: Reports:: Aneurysm, Asthma, Gastroesophageal Reflux Disease(GERD), Hyperlipidemia, Ulcer, Urinary Tract Infection Denies:: Cancer, Diabetes Mellitus Type 1, Diabetes Mellitus Type 2, Internal Pacemaker, MRSA, Seizures Other Medical History: Reports: Arthritis, Other. Denies: Blood Transfusion Reaction Comment: C-Diff, LS&A-Vulva Laterality Cases: Left: Myringotomy (Ear Tubes) Other Surgeries: Yes: Cholecystectomy, Colonoscopy, Colon Resection, Hysterectomy-Total, Other. No: Pacemaker Amputation: No Fractures: No Comment: ? D&E x2. 1963- KELSEY. 1964- BSO. 1988- A&P REPAIR. 1991- LAP CHOLECYSTECTOMY. 2001- PVS, RSO. 2005- pt. had 18" of colon removed. 2009- Hemorrhoid surgery. 2016or 2018-Brain surgery - Social History Educational Level: Completed High School Smoking Status: Never smoker Alcohol Intake: never Alcohol Intake Frequency:: other Substance Use Type: denies use Occupational Status: other Housing: [facility] Household Members: none Family Hx:: Cancer, Coronary Artery Disease, Heart Attack, Stroke ROS Obtained: Yes All systems reviewed & no additional complaints Physical Exam - General General appearance: alert, in no apparent distress, lethargic, cachectic, other (Patient looks very dehydrated and tired.) - Head Head exam: atraumatic, normocephalic, normal inspection - Eye Eye exam: Present: normal appearance, PERRL, EOMI - ENT ENT exam: Present: other (Dry oral mucosa.) - Neck Neck exam: Present: normal inspection, full ROM, trachea midline - Chest Chest inspection: Present: normal inspection, symmetric chest wall rise. Absent: tenderness - Respiratory Respiratory exam: Present: normal lung sounds bilaterally. Absent: respiratory distress - Cardiovascular Cardiovascular exam: Present: regular rate, normal rhythm. Absent: JVD - Abdominal Exam Abdominal exam: Present: soft, tenderness (Mild discomfort throughout the abdomen.), normal bowel sounds, other (Surgical site at the midline is healing well. No discharge.). Absent: distention, guarding - Extremities Exam Extremities exam: Present: full ROM, normal capillary refill, other (Muscle wasting.). Absent: calf tenderness - Back Exam Back exam: Present: other (At baseline kyphoscoliosis) - Neurological Exam Neurological exam: Present: alert, oriented X3, CN II-XII intact - Psychiatric Psychiatric exam: Present: normal affect, normal mood - Skin Skin exam: Present: dry, intact, pallor, other (Decreased skin turgor)
[2019-09-21 12:20] LABS: Basophils % 0.3 % (0.1-2.0); Eosinophils # 0.1 K/mm3 (0.0-0.4); Eosinophils % 0.6 % (0.1-12.0); Hematocrit 39.2 % (37.0-47.0); Hemoglobin 12.7 g/dL (12.2-16.2); Lymphocytes # 3.6 K/mm3 (0.7-4.5); Lymphocytes % 30.2 % (10-50); Mean Corpuscular HGB Conc 32.4 g/dL (31.8-35.4); Mean Corpuscular Volume 90.5 fl (81-99); Mean Platelet Volume 8.1 fl (7.4-10.4); Monocytes # 0.3 K/mm3 (0.1-1.0); Monocytes % 2.5 % (1.7-9.3); Neutrophils % 66.4 % (37.0-80.0); Platelet Count 309 K/mm3 (142-424); Red Blood Count 4.33 M/mm3 (4.20-5.40); Red Cell Distribution Width 15.6 % (11.5-17.5)
[2019-09-21 12:27] LABS: Anion Gap 16.3 mEq/L (5-15); Bilirubin,Total 0.8 mg/dl (0.2-1.3)
[2019-09-21 12:28] LABS: Albumin Level 3.7 g/dl (3.5-5.0); Albumin/Globulin Ratio 0.9 (1.1-1.8); Calcium 9.9 mg/dl (8.4-10.2); Globulin 4.3 g/dL (1.3-3.2)
--- NOTE | 2019-09-21 15:53 | Consult Report ---
*Admission Date: 09/21/19 *Reason for consult:: Abdominal fluid collections *History of present illness: This is an 89-year-old female who presented with nausea and vague abdominal pain. She has recently undergone complex lysis of adhesions with partial small bowel resection secondary to obstruction. She did have fairly significant barium spillage at the time of her initial operation. She had a very comp licated hospital course requiring TPN. She had very slow return of bowel function and ultimately was discharged for physical therapy/rehab. HPI from emergency department evaluation: 89-year-old female was brought in from the long term by her family members for having nausea, vomiting, generalized weakness and light body ache along with abdominal pain. Patient had small bowel obstruction about a month and a half ago. She was in our hospital and had lysis of the adhesions done for the small bowel obstruction. She was on TPN for a while during the hospital stay and was discharged to the long term for rehabilitation. She has been in the long term for almost a month but for the last week or so her condition seems to be getting worse according to the family. She has not been eating or drinking well. She seems to have lost almost 20 pounds in the last 2 weeks. She has a decreased appetite and has not had good bowel movements. The family finally decided to bring the patient to the emergency department since the patient started complaining of not feeling well and wanted to come to the emergency department. No history of fever. No hx of chills. Onset (ago): week(s) Radiation: non-radiation Severity: moderate Consistency: constant Relieving factors: none Exacerbating factors: none Review of Systems - Constitutional Denies chills, Denies fever(s) - *Cardiovascular Denies chest pain - *Gastrointestinal Reports abdominal pain, Reports nausea [facility] History Medical History: Reports:: Aneurysm, Asthma, Gastroesophageal Reflux Disease(GERD), Hyperlipidemia, Ulcer, Urinary Tract Infection Denies:: Cancer, Diabetes Mellitus Type 1, Diabetes Mellitus Type 2, Internal Pacemaker, MRSA, Seizures *Have you ever received a pneumonia vaccine?: Yes *Have you received a flu vaccine this season?: Yes Other Medical History: Reports: Arthritis, Other. Denies: Blood Transfusion Reaction Laterality Cases: Left: Myringotomy (Ear Tubes) Other Surgeries: Yes: Cholecystectomy, Colonoscopy, Colon Resection, Hysterectomy-Total, Other. No: Pacemaker Amputation: No Fractures: No - *Social History Educational Level: Completed High School Smoking Status: Never smoker Alcohol Intake: never Alcohol Intake Frequency:: other Substance Use Type: denies use *Occupational Status:: other Housing: long term Household Members: none *Travel in the last 8 weeks: None Family Hx:: Cancer, Coronary Artery Disease, Heart Attack, Stroke Meds Home Medications Medication Instructions Recorded Confirmed Type Fluconazole 150 mg PO QWEEK 06/30/19 09/13/19 History Ergocalciferol (Vitamin D2) 1 cap PO WEEKLY 08/12/19 09/21/19 History [Drisdol 50,000 units (1.25mg) capsule] mirtazapine 15 mg tablet 15 mg PO DAILY 09/13/19 09/21/19 History polyethylene glycol 3350 17 17 g PO DAILY 09/13/19 09/21/19 History gram/dose oral powder Famotidine [Pepcid 20mg Tablet] 20 mg PO BID 09/21/19 09/21/19 History Allergies Allergy/AdvReac Type Severity Reaction Status Date / Time acetaminophen Allergy Unknown DIFFICULTY Verified 09/13/19 09:10 [From DARVOCET-N] BREATHING ciprofloxacin [From CIPRO] Allergy Unknown DIFFICULTY Verified 09/13/19 09:10 BREATHING Penicillins [PENICILLINS] Allergy Unknown DIFFICULTY Verified 09/13/19 09:10 BREATHING propoxyphene Allergy Unknown DIFFICULTY Verified 09/13/19 09:10 [From DARVOCET-N] BREATHING doxycycline Allergy Verified 09/13/19 09:10 hydrocodone Allergy Vomiting Verified 09/13/19 09:10 ibuprofen [From Advil] Allergy Vomiting Verified 09/13/19 09:10 Sulfa (Sulfonamide Allergy Verified 09/13/19 09:10 Antibiotics) valacyclovir [From Valtrex] Allergy Vomiting Verified 09/13/19 09:10 Exam Vital signs and Labs for Last 24 Hours: Pulse Resp BP Pulse Ox 104 H 18 139/63 97 09/21/19 11:38 09/21/19 11:38 09/21/19 11:38 09/21/19 11:38 Laboratory Results - last 24 hr 09/21/19 12:13: WBC 12.0 H, RBC 4.33, Hgb 12.7, Hct 39.2, MCV 90.5, MCH 29.3, MCHC 32.4, RDW 15.6, Plt Count 309, MPV 8.1, Neut % (Auto) 66.4, Lymph % (Auto) 30.2, [place] % (Auto) 2.5, Eos % (Auto) 0.6, Baso % (Auto) 0.3, Neut # (Auto) 8.0 H, Lymph # (Auto) 3.6, [place] # (Auto) 0.3, Eos # (Auto) 0.1, Baso # (Auto) 0.0 09/21/19 12:13: Sodium 135 L, Potassium 4.3, Chloride 98, Carbon Dioxide 25, Anion Gap 16.3 H, BUN 33 H, Creatinine 0.90, Estimated Creat Clear 32, Estimated GFR 59, Est GFR ( Amer) 72, Glucose 149 H, Calcium 9.9, Total Bilirubin 0.8, AST 55 H, ALT 53, Alkaline Phosphatase 126, Total Protein 8.0, Albumin 3.7, Globulin 4.3 H, Albumin/Globulin Ratio 0.9 L 09/21/19 12:13: Troponin I < 0.01 I & O for Last 24 hours: Intake & Output 09/19/19 09/20/19 09/21/19 09/22/19 11:59 11:59 11:59 11:59 Weight 114 lb - Constitutional no acute distress - *Routine Respiratory Exam Absent: respiratory distress - *Routine Cardiovascular Exam Present: tachycardia - *Routine Abdominal Exam Present: soft Results - Labs 09/21/19 12:13 09/21/19 12:13 Laboratory Results - last 24 hr 09/21/19 12:13: WBC 12.0 H, RBC 4.33, Hgb 12.7, Hct 39.2, MCV 90.5, MCH 29.3, MCHC 32.4, RDW 15.6, Plt Count 309, MPV 8.1, Neut % (Auto) 66.4, Lymph % (Auto) 30.2, [place] % (Auto) 2.5, Eos % (Auto) 0.6, Baso % (Auto) 0.3, Neut # (Auto) 8.0 H, Lymph # (Auto) 3.6, [place] # (Auto) 0.3, Eos # (Auto) 0.1, Baso # (Auto) 0.0 09/21/19 12:13: Sodium 135 L, Potassium 4.3, Chloride 98, Carbon Dioxide 25, Anion Gap 16.3 H, BUN 33 H, Creatinine 0.90, Estimated Creat Clear 32, Estimated GFR 59, Est GFR ( Amer) 72, Glucose 149 H, Calcium 9.9, Total Bilirubin 0.8, AST 55 H, ALT 53, Alkaline Phosphatase 126, Total Protein 8.0, Albumin 3.7, Globulin 4.3 H, Albumin/Globulin Ratio 0.9 L 09/21/19 12:13: Troponin I < 0.01 - Imaging CT scan - abdomen: report reviewed, image reviewed CT scan - pelvis: report reviewed, image reviewed (The largest fluid collection is not easily accessible secondary to location (surrounded by bowel loops). In addition, the large fluid collection does not appear to have air pockets. She has multiple smaller collections with some air pockets but these are all "too small" to target.) Assessment and Plan (1) Intra-abdominal fluid collection Current visit: Yes Status: Acute Category: Medical Code(s): R18.8 - Other ascites Fluids secondary to intraoperative barium spillage. Barium peritonitis is a possibility; however, true abscess formation is undetermined. The only collection that is of considerable size (large enough to drain) is not easily accessible secondary to location (surrounded by bowel loops). In addition to this large collection does not have associated "air pockets" indicative of abscess. Serial abdominal exams Although true abscess cannot be definitively diagnosed it is reasonable to begin antibiotic coverage (2) Abdominal pain Current visit: Yes Status: Acute Qualifiers: Abdominal location: generalized Qualified Code(s): R10.84 - Generalized abdominal pain Category: Medical Code(s): R10.9 - Unspecified abdominal pain (3) Fecal impaction in rectum Current visit: Yes Status: Acute Category: Medical Code(s): K56.41 - Fecal impaction (4) Malnutrition Current visit: No Status: Acute Category: Medical Code(s): E46 - Unspecified protein-calorie malnutrition
--- NOTE | 2019-09-21 17:54 | History & Physical Report ---
*Admission Date: 09/21/19 <Mireille Santizo 09/21/19 18:05> *Chief complaint: nausea, vomiting, abdominal pain <Mireille Santizo 09/21/19 18:05> *History of present illness: Ms. Araujo is an 89-year-old female who just recently underwent surgery for bowel obstruction. [facility] and states she has felt poorly for the past 2 to 3 weeks. She states she has had diffuse abdominal pain along with constipation. She did have a previous fecal impaction and when she finally passed it, it felt like she had passed a softball. She states she has been constipated for the last few days and is having liquid stool around the constipation. She states anytime she eats she vomits and gets extremely nauseated. She has been unable to drink as well. She felt so bad she asked to be brought to the emergency department. She had a CT of her abdomen and pelvis which showed multiple complex fluid collections throughout the abdomen with peripheral hyperdensity loculations some of which contained air in the left lower quadrant. Radiology felt this could represent sequela from barium peritonitis or possibly an abscess. They felt a repeat CT with oral contrast would be needed. She also had constipation with a rectal fecal impaction. She was admitted for further evaluation and treatment. <Mireille Santizo 09/21/19 18:05> [facility] History I have reviewed the patient's past medical history: Yes <Mireille Santizo 09/21/19 18:05> Medical History: Reports:: Aneurysm, Anxiety, Asthma, Gastroesophageal Reflux Disease(GERD), Hyperlipidemia, Osteoporosis, Ulcer, Urinary Tract Infection Denies:: Cancer, Diabetes Mellitus Type 1, Diabetes Mellitus Type 2, Internal Pacemaker, MRSA, Seizures <Mireille Santizo 09/21/19 18:05> *Have you ever received a pneumonia vaccine?: Yes <Mireille Santizo 09/21/19 18:05> *Have you received a flu vaccine this season?: Yes <Mireille Santizo 09/21/19 18:05> Other Medical History: Reports: Anemia, Arthritis, Other (hiatal hernia, diverticulosis, lichen planus, h.pylori, chronic back pain). Denies: Blood Mazariegos sfusion Reaction <Mireille Santizo 09/21/19 18:05> Laterality Cases: Left: Myringotomy (Ear Tubes), Bilateral: Cataract <Mireille Santizo 09/21/19 18:05> Other Surgeries: Yes: Cholecystectomy, Colonoscopy, Colon Resection, Hysterectomy-Total, Other (bladder tack, brain aneurysm removed ). No: Pacemaker <Mireille Santizo 09/21/19 18:05> Amputation: No <Mireille Santizo 09/21/19 18:05> Fractures: No <Mireille Santizo 09/21/19 18:05> - *Social History Educational Level: Completed High School <Mireille Santizo 09/21/19 18:05> Smoking Status: Never smoker <Mireille Santizo 09/21/19 18:05> Alcohol Intake: never <Mireille Santizo 09/21/19 18:05> Alcohol Intake Frequency:: other <Mireille Santizo 09/21/19 18:05> Substance Use Type: denies use <Mireille Santizo 09/21/19 18:05> *Occupational Status:: retired <Mireille Santizo 09/21/19 18:05> Housing: [facility] <Mireille Santizo 09/21/19 18:05> Household Members: none <Mireille Santizo 09/21/19 18:05> *Travel in the last 8 weeks: None <Mireille Santizo 09/21/19 18:05> Family Hx:: Cancer, Coronary Artery Disease, Heart Attack, Stroke <Mireille Santizo 09/21/19 18:05> Review of Systems - Constitutional Reports body ache(s), Reports fatigue, Reports weakness, Denies fever(s) <Mireille Santizo 09/21/19 18:05> - Eyes Denies blurry vision, Denies double vision <Mireille Santizo 09/21/19 18:05> - ENT Reports nasal congestion, Denies sore throat <Mireille Santizo 09/21/19 18:05> - *Cardiovascular Reports chest pain (left sided), Denies rapid, pounding, or irregular heartbeat <Mireille Santizo 09/21/19 18:05> - *Respiratory Reports shortness of breath, Denies cough <Mireille Santizo 09/21/19 18:05> - *Gastrointestinal Reports abdominal pain (diffuse), Reports constipation, Reports nausea, Reports vomiting <Mireille Santizo 09/21/19 18:05> - *Genitourinary Denies difficulty urinating, Denies painful urination <Mireille Santizo 09/21/19 18:05> - *Musculoskeletal Reports muscle weakness, Denies joint pain <Mireille Santizo 09/21/19 18:05> - *Neurologic Reports headache(s), Reports dizziness, Reports weakness <Mireille Santizo 09/21/19 18:05> Meds Home Medications Medication Instructions Recorded Confirmed Type Fluconazole 150 mg PO QWEEK 06/30/19 09/21/19 History Ergocalciferol (Vitamin D2) 1 cap PO WEEKLY 08/12/19 09/21/19 History [Drisdol 50,000 units (1.25mg) capsule] mirtazapine 15 mg tablet 15 mg PO DAILY 09/13/19 09/21/19 History polyethylene glycol 3350 17 17 g PO DAILY 09/13/19 09/21/19 History gram/dose oral powder Famotidine [Pepcid 20mg Tablet] 20 mg PO BID 09/21/19 09/21/19 History <Elvin Guardado - 09/21/19 19:46> Allergies Allergy/AdvReac Type Severity Reaction Status Date / Time acetaminophen Allergy Unknown DIFFICULTY Verified 09/13/19 09:10 [From DARVOCET-N] BREATHING ciprofloxacin [From CIPRO] Allergy Unknown DIFFICULTY Verified 09/13/19 09:10 BREATHING Penicillins [PENICILLINS] Allergy Unknown DIFFICULTY Verified 09/13/19 09:10 BREATHING propoxyphene Allergy Unknown DIFFICULTY Verified 09/13/19 09:10 [From DARVOCET-N] BREATHING doxycycline Allergy Verified 09/13/19 09:10 hydrocodone Allergy Vomiting Verified 09/13/19 09:10 ibuprofen [From Advil] Allergy Vomiting Verified 09/13/19 09:10 Sulfa (Sulfonamide Allergy Verified 09/13/19 09:10 Antibiotics) valacyclovir [From Valtrex] Allergy Vomiting Verified 09/13/19 09:10 <Elvin Guardado - 09/21/19 19:46> Exam Vital signs and Labs for Last 24 Hours: Temp Pulse Resp BP Pulse Ox 97.5 F L 75 18 127/51 L 95 09/21/19 17:02 09/21/19 17:02 09/21/19 17:02 09/21/19 17:02 09/21/19 16:55 Laboratory Results - last 24 hr 09/21/19 12:13: WBC 12.0 H, RBC 4.33, Hgb 12.7, Hct 39.2, MCV 90.5, MCH 29.3, MCHC 32.4, RDW 15.6, Plt Count 309, MPV 8.1, Neut % (Auto) 66.4, Lymph % (Auto) 30.2, [place] % (Auto) 2.5, Eos % (Auto) 0.6, Baso % (Auto) 0.3, Neut # (Auto) 8.0 H, Lymph # (Auto) 3.6, [place] # (Auto) 0.3, Eos # (Auto) 0.1, Baso # (Auto) 0.0 09/21/19 12:13: Sodium 135 L, Potassium 4.3, Chloride 98, Carbon Dioxide 25, Anion Gap 16.3 H, BUN 33 H, Creatinine 0.90, Estimated Creat Clear 32, Estimated GFR 59, Est GFR ( Amer) 72, Glucose 149 H, Calcium 9.9, Total Bilirubin 0.8, AST 55 H, ALT 53, Alkaline Phosphatase 126, Total Protein 8.0, Albumin 3.7, Globulin 4.3 H, Albumin/Globulin Ratio 0.9 L 09/21/19 12:13: Troponin I < 0.01 09/21/19 15:42: Troponin I < 0.01 09/21/19 18:45: POC Glucose 105 <GeoElvin - 09/21/19 19:46> Temp Pulse Resp BP Pulse Ox 97.5 F L 75 18 127/51 L 95 09/21/19 17:02 09/21/19 17:02 09/21/19 17:02 09/21/19 17:02 09/21/19 16:55 Laboratory Results - last 24 hr 09/21/19 12:13: WBC 12.0 H, RBC 4.33, Hgb 12.7, Hct 39.2, MCV 90.5, MCH 29.3, MCHC 32.4, RDW 15.6, Plt Count 309, MPV 8.1, Neut % (Auto) 66.4, Lymph % (Auto) 30.2, [place] % (Auto) 2.5, Eos % (Auto) 0.6, Baso % (Auto) 0.3, Neut # (Auto) 8.0 H, Lymph # (Auto) 3.6, [place] # (Auto) 0.3, Eos # (Auto) 0.1, Baso # (Auto) 0.0 09/21/19 12:13: Sodium 135 L, Potassium 4.3, Chloride 98, Carbon Dioxide 25, Anion Gap 16.3 H, BUN 33 H, Creatinine 0.90, Estimated Creat Clear 32, Estimated GFR 59, Est GFR ( Amer) 72, Glucose 149 H, Calcium 9.9, Total Bilirubin 0.8, AST 55 H, ALT 53, Alkaline Phosphatase 126, Total Protein 8.0, Albumin 3.7, Globulin 4.3 H, Albumin/Globulin Ratio 0.9 L 09/21/19 12:13: Troponin I < 0.01 09/21/19 15:42: Troponin I < 0.01 <Mireille Santizo - 09/21/19 18:05> I & O for Last 24 hours: Intake & Output 09/18/19 09/19/19 09/20/19 09/21/19 23:59 23:59 23:59 23:59 Weight 118 lb 5 oz <[place],Elvin - 09/21/19 19:46> Intake & Output 09/19/19 09/20/19 09/21/19 09/22/19 11:59 11:59 11:59 11:59 Weight 114 lb 118 lb 5 oz <Mireille Santizo - 09/21/19 18:05> - Constitutional Comments: Does not appear to feel well <Mireille Santizo - 09/21/19 18:05> - *Routine HEENT Exam Head: Present: normocephalic <Mireille Santizo 09/21/19 18:05> Eye: Present: EOMI, PERRL <Mireille Santizo - 09/21/19 18:05> ENT: Present: mucous membranes dry <Mireille Santizo - 09/21/19 18:05> - *Routine Neck Exam Present: supple. Absent: lymphadenopathy <Mireille Santizo - 09/21/19 18:05> - *Routine Respiratory Exam Present: [facility] bilaterally [facility] 09/21/19 18:05> - *Routine Cardiovascular Exam Present: RRR <[facility] 09/21/19 18:05> - *Routine Abdominal Exam Present: soft, normoactive bowel sounds, tenderness (diffuse) <[facility] 09/21/19 18:05> Comments: dressing in place on abdomen from recent surgery <Mireille Santizo 09/21/19 18:05> - *Routine Extremities Exam Absent: cyanosis, clubbing, edema <[facility] 09/21/19 18:05> - *Routine Skin Exam Present: warm. Absent: rash <[facility] 09/21/19 18:05> - *Routine Neurological Exam Present: alert, oriented X3 <[facility] 09/21/19 18:05> H&P: Result - Impressions CT abd/pelvis 1. There are multiple complex fluid collections throughout the abdomen with peripheral hyperdensity loculations and some of which contain air in the left lower quadrant. This may represent sequela from barium peritonitis. Cannot determine if these are sterile or infected. There is an air-fluid level within 1 the collections in the left lower quadrant suspicious for abscess. Repeat exam with oral contrast may better delineate the actual extent of the fluid collections.. 2. Constipation with rectal fecal impaction <[facility] 09/21/19 18:05> Assessment and Plan (1) Intra-abdominal fluid collection Current visit: Yes Status: Acute Category: Medical Code(s): R18.8 - Other ascites (2) Abdominal pain Current visit: Yes Status: Acute Qualifiers: Abdominal location: generalized Qualified Code(s): R10.84 - Generalized abdominal pain Category: Medical Code(s): R10.9 - Unspecified abdominal pain (3) Fecal impaction in rectum Current visit: Yes Status: Acute Category: Medical Code(s): K56.41 - Fecal impaction (4) Malnutrition Current visit: No Status: Acute Category: Medical Code(s): E46 - Unspecified protein-calorie malnutrition (5) Leukocytosis Current visit: Yes Status: Acute Category: Medical Code(s): D72.829 - Elevated white blood cell count, unspecified (6) Renal insufficiency Current visit: Yes Status: Acute Category: Medical Code(s): N28.9 - Disorder of kidney and ureter, unspecified (7) Hyponatremia Current visit: Yes Status: Acute Category: Medical Code(s): E87.1 - Hypo- osmolality and hyponatremia (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 Category: Medical Code(s): L43.9 - Lichen planus, unspecified (9) History of bowel resection Current visit: Yes Status: Acute Category: Surgical Code(s): Z90.49 - Acquired absence of other specified parts of digestive tract (10) Hyperlipidemia Current visit: Yes Status: Chronic Category: Medical Code(s): E78.5 - Hyperlipidemia, unspecified <GeoElvin - 09/21/19 19:46> (1) Intra-abdominal fluid collection Current visit: Yes Status: Acute Category: Medical Code(s): R18.8 - Other ascites (2) Abdominal pain Current visit: Yes Status: Acute Qualifiers: Abdominal location: generalized Qualified Code(s): R10.84 - Generalized abdominal pain Category: Medical Code(s): R10.9 - Unspecified abdominal pain (3) Fecal impaction in rectum Current visit: Yes Status: Acute Category: Medical Code(s): K56.41 - Fecal impaction (4) Malnutrition Current visit: No Status: Acute Category: Medical Code(s): E46 - Unspecified protein-calorie malnutrition (5) Leukocytosis Current visit: Yes Status: Acute Category: Medical Code(s): D72.829 - Elevated white blood cell count, unspecified (6) Renal insufficiency Current visit: Yes Status: Acute Category: Medical Code(s): N28.9 - Disorder of kidney and ureter, unspecified (7) Hyponatremia Current visit: Yes Status: Acute Category: Medical Code(s): E87.1 - Hypo- osmolality and hyponatremia (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 Category: Medical Code(s): L43.9 - Lichen planus, unspecified (9) History of bowel resection Current visit: Yes Status: Acute Category: Surgical Code(s): Z90.49 - Acquired absence of other specified parts of digestive tract (10) Hyperlipidemia Current visit: Yes Status: Chronic Category: Medical Code(s): E78.5 - Hyperlipidemia, unspecified <Mireille Santioz - 09/21/19 17:50> - Assessment and plan all Dx Assessment and Plan for all problems:: Saw patient, agree with above note. <Elvin Guardado - 09/21/19 19:46> The patient was admitted and Dr. Collazo was consulted. Dr. Rose was consulted as well and in the emergency room note, it stated that he did not feel he could adequately drain these fluid collections. Dr. Collazo spoke with the family about transfer to , but the patient refuses any further surgical treatment. He felt the fluid collection could be secondary to intraoperative barium spillage. Barium peritonitis is a possibility; however, true abscess formation is undetermined. He recommended serial abdominal exams as well as antibiotic coverage. The patient has been started on Flagyl and ertapenem as well as IV fluids. She will likely need an enema as well due to her fecal impaction. Will discuss with Dr. Guardado. <Mireille Santizo - 09/21/19 18:05>
[2019-09-22 06:50] LABS: Basophils % 0.3 % (0.1-2.0); Hematocrit 30.8 % (37.0-47.0); Mean Corpuscular HGB Conc 31.1 g/dL (31.8-35.4); Mean Corpuscular Volume 92.7 fl (81-99); Monocytes # 0.3 K/mm3 (0.1-1.0); Monocytes % 3.4 % (1.7-9.3); Neutrophils # 6.9 K/mm3 (1.8-7.8); Neutrophils % 74.3 % (37.0-80.0); Platelet Count 163 K/mm3 (142-424); Red Blood Count 3.32 M/mm3 (4.20-5.40); Red Cell Distribution Width 15.8 % (11.5-17.5); White Blood Count 9.2 K/mm3 (4.8-10.8)
[2019-09-22 06:54] LABS: Anion Gap 9.4 mEq/L (5-15)
--- NOTE | 2019-09-22 06:56 | Progress Note ---
Subjective Patient reports: other (She states that she feels "just a little bit better" this morning) Exam Vital signs and Labs for Last 24 Hours: Temp Pulse Resp BP Pulse Ox 98.1 F 101 H 18 110/44 L 92 L 09/22/19 04:00 09/22/19 04:00 09/22/19 04:00 09/22/19 04:00 09/22/19 04:00 Laboratory Results - last 24 hr 09/21/19 12:13: WBC 12.0 H, RBC 4.33, Hgb 12.7, Hct 39.2, MCV 90.5, MCH 29.3, MCHC 32.4, RDW 15.6, Plt Count 309, MPV 8.1, Neut % (Auto) 66.4, Lymph % (Auto) 30.2, [place] % (Auto) 2.5, Eos % (Auto) 0.6, Baso % (Auto) 0.3, Neut # (Auto) 8.0 H, Lymph # (Auto) 3.6, [place] # (Auto) 0.3, Eos # (Auto) 0.1, Baso # (Auto) 0.0 09/21/19 12:13: Sodium 135 L, Potassium 4.3, Chloride 98, Carbon Dioxide 25, Anion Gap 16.3 H, BUN 33 H, Creatinine 0.90, Estimated Creat Clear 32, Estimated GFR 59, Est GFR ( Amer) 72, Glucose 149 H, Calcium 9.9, Total Bilirubin 0.8, AST 55 H, ALT 53, Alkaline Phosphatase 126, Total Protein 8.0, Albumin 3.7, Globulin 4.3 H, Albumin/Globulin Ratio 0.9 L 09/21/19 12:13: Troponin I < 0.01 09/21/19 15:42: Troponin I < 0.01 09/21/19 18:45: POC Glucose 105 09/21/19 20:58: POC Glucose 92 09/22/19 04:03: POC Glucose 113 H I & O for Last 24 hours: Intake & Output 09/19/19 09/20/19 09/21/19 09/22/19 11:59 11:59 11:59 11:59 Intake Total 1274 / 1274 Balance 1274 / 1274 Weight 114 lb 118 lb 5 oz - Constitutional no acute distress - *Routine Respiratory Exam Absent: respiratory distress - *Routine Cardiovascular Exam Present: tachycardia - *Routine Abdominal Exam Present: soft Comments: Midline wound healing with no cellulitis Progress Note: A&P (1) Intra-abdominal fluid collection Status: Acute Assessment and plan: Likely secondary to intraoperative barium contamination. This could represent a sterile fluid collection versus abscess formation. The collections are not easily accessible in terms of drain placement. The patient is seemingly unwilli ng to undergo any type of procedure (particularly operative intervention). Most likely the risk of any intervention would outweigh the benefit. She will continue a course of antibiotics and have close ongoing follow-up. Current Visit: Yes (2) Abdominal pain Status: Acute Current Visit: Yes (3) Fecal impaction in rectum Status: Acute Current Visit: Yes (4) Malnutrition Status: Acute Current Visit: No (5) Leukocytosis Status: Acute Current Visit: Yes (6) Renal insufficiency Status: Acute Current Visit: Yes (7) Hyponatremia Status: Acute Current Visit: Yes (8) Lichen planus Status: Chronic Current Visit: Yes (9) History of bowel resection Status: Acute Current Visit: Yes (10) Hyperlipidemia Status: Chronic Current Visit: Yes
[2019-09-22 07:21] LABS: Hemoglobin 9.7 g/dL (12.2-16.2)
--- NOTE | 2019-09-22 07:42 | Pharmacy Consult Notes ---
[facility] Pharmacy VTE Monitoring - Patient Demographics Admission date: 09/21/19 Report Date: 09/22/19 Time: 07:41 Allergies/Adverse Reactions: Patient Allergies acetaminophen [From DARVOCET-N] Allergy (Unknown, Verified 09/13/19 09:10) DIFFICULTY BREATHING ciprofloxacin [From CIPRO] Allergy (Unknown, Verified 09/13/19 09:10) DIFFICULTY BREATHING Penicillins [PENICILLINS] Allergy (Unknown, Verified 09/13/19 09:10) DIFFICULTY BREATHING propoxyphene [From DARVOCET-N] Allergy (Unknown, Verified 09/13/19 09:10) DIFFICULTY BREATHING doxycycline Allergy (Verified 09/13/19 09:10) hydrocodone Allergy (Verified 09/13/19 09:10) Vomiting ibuprofen [From Advil] Allergy (Verified 09/13/19 09:10) Vomiting Sulfa (Sulfonamide Antibiotics) Allergy (Verified 09/13/19 09:10) valacyclovir [From Valtrex] Allergy (Verified 09/13/19 09:10) Vomiting Height: 1.52 m Weight: 53.666 kg Patient Problems: Current Active Problems Abdominal pain (Acute) Intestinal abscess (Acute) Fecal impaction in rectum (Acute) Peritonitis (Acute) Intra-abdominal fluid collection (Acute) History of bowel resection (Acute) Hyperlipidemia (Chronic) Lichen planus (Chronic) Leukocytosis (Acute) Renal insufficiency (Acute) Hyponatremia (Acute) - VTE Risk Labs: VTE Related Lab Results Hgb 9.7 g/dL (12.2-16.2) L D 09/22/19 06:20 Hct 30.8 % (37.0-47.0) L 09/22/19 06:20 Plt Count 163 K/mm3 (142-424) D 09/22/19 06:20 BUN 18 mg/dl (7-17) H D 09/22/19 06:20 Creatinine 0.80 mg/dl (0.52-1.04) 09/22/19 06:20 Estimated Creat Clear 34 mL/min (50-200) 09/22/19 06:20 VTE Score: 7 VTE Risk Level: Moderate Risk - Prophylaxis VTE Prophylaxis Ordered?: Yes Types of VTE Prophylaxis: TEDS Knee High Location of Applied Device: Bilateral Lower Extremeties
[2019-09-22 08:12] LABS: Calcium 8.3 mg/dl (8.4-10.2)
--- NOTE | 2019-09-22 08:47 | Progress Note ---
Internal Medicine - PN: Subj *Date: 09/22/19 *Time: 08:44 Interval history: Patient with no new complaints today, still has abdominal and rectal pain. It appears that she refused an enema treatment last night but did have a small bowel movement. Patient is nauseated this morning. Exam Vital signs and Labs for Last 24 Hours: Temp Pulse Resp BP Pulse Ox 98.1 F 88 18 106/42 L 92 L 09/22/19 08:00 09/22/19 08:00 09/22/19 08:00 09/22/19 08:00 09/22/19 08:00 Laboratory Results - last 24 hr 09/21/19 12:13: WBC 12.0 H, RBC 4.33, Hgb 12.7, Hct 39.2, MCV 90.5, MCH 29.3, MCHC 32.4, RDW 15.6, Plt Count 309, MPV 8.1, Neut % (Auto) 66.4, Lymph % (Auto) 30.2, Blount % (Auto) 2.5, Eos % (Auto) 0.6, Baso % (Auto) 0.3, Neut # (Auto) 8.0 H, Lymph # (Auto) 3.6, Blount # (Auto) 0.3, Eos # (Auto) 0.1, Baso # (Auto) 0.0 09/21/19 12:13: Sodium 135 L, Potassium 4.3, Chloride 98, Carbon Dioxide 25, Anion Gap 16.3 H, BUN 33 H, Creatinine 0.90, Estimated Creat Clear 32, Estimated GFR 59, Est GFR ( Amer) 72, Glucose 149 H, Calcium 9.9, Total Bilirubin 0.8, AST 55 H, ALT 53, Alkaline Phosphatase 126, Total Protein 8.0, Albumin 3.7, Globulin 4.3 H, Albumin/Globulin Ratio 0.9 L 09/21/19 12:13: Troponin I < 0.01 09/21/19 15:42: Troponin I < 0.01 09/21/19 18:45: POC Glucose 105 09/21/19 20:58: POC Glucose 92 09/22/19 04:03: POC Glucose 113 H 09/22/19 06:20: WBC 9.2, RBC 3.32 L, Hgb 9.7 L D, Hct 30.8 L, MCV 92.7, MCH 28.8, MCHC 31.1 L, RDW 15.8, Plt Count 163 D, MPV 8.0, Neut % (Auto) 74.3, Lymph % (Auto) 22.0, Blount % (Auto) 3.4, Eos % (Auto) 0.0 L, Baso % (Auto) 0.3, Neut # (Auto) 6.9, Lymph # (Auto) 2.0, Blount # (Auto) 0.3, Eos # (Auto) 0.0, Baso # (Auto) 0.0 09/22/19 06:20: Sodium 137, Potassium 3.4 L D, Chloride 110 H, Carbon Dioxide 21 L, Anion Gap 9.4, BUN 18 H D, Creatinine 0.80, Estimated Creat Clear 34, Estimated GFR 68, Est GFR ( Amer) 82, Glucose 104 H D, Calcium 8.3 L D I & O for Last 24 hours: Intake & Output 09/19/19 09/20/19 09/21/19 09/22/19 23:59 23:59 23:59 23:59 Intake Total 1274 / 1274 Balance 1274 / 1274 Weight 118 lb 5 oz - Constitutional no acute distress (appears not to feel well) - *Routine HEENT Exam Head: Present: normocephalic Eye: Present: EOMI, PERRL ENT: Present: mucous membranes moist - *Routine Neck Exam Present: supple. Absent: lymphadenopathy - *Routine Respiratory Exam Present: CTA bilaterally - *Routine Cardiovascular Exam Present: RRR - *Routine Abdominal Exam Present: soft, normoactive bowel sounds, tenderness (diffuse to palpation). Absent: rebound, guarding - *Routine Extremities Exam Absent: cyanosis, clubbing, edema - *Routine Skin Exam Present: warm. Absent: rash - *Routine Neurological Exam Present: alert Assessment and Plan (1) Intra-abdominal fluid collection Current visit: Yes Status: Acute Category: Medical Code(s): R18.8 - Other ascites (2) Abdominal pain Current visit: Yes Status: Acute Qualifiers: Abdominal location: generalized Qualified Code(s): R10.84 - Generalized abdominal pain Category: Medical Code(s): R10.9 - Unspecified abdominal pain (3) Fecal impaction in rectum Current visit: Yes Status: Acute Category: Medical Code(s): K56.41 - Fecal impaction (4) Malnutrition Current visit: No Status: Acute Category: Medical Code(s): E46 - Unspecified protein-calorie malnutrition (5) Leukocytosis Current visit: Yes Status: Acute Category: Medical Code(s): D72.829 - Elevated white blood cell count, unspecified (6) Renal insufficiency Current visit: Yes Status: Acute Category: Medical Code(s): N28.9 - Disorder of kidney and ureter, unspecified (7) Hyponatremia Current visit: Yes Status: Acute Category: Medical Code(s): E87.1 - Hypo- osmolality and hyponatremia (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 Category: Medical Code(s): L43.9 - Lichen planus, unspecified (9) History of bowel resection Current visit: Yes Status: Acute Category: Surgical Code(s): Z90.49 - Acquired absence of other specified parts of digestive tract (10) Hyperlipidemia Current visit: Yes Status: Chronic Category: Medical Code(s): E78.5 - Hyperlipidemia, unspecified - Assessment and plan all Dx Assessment and Plan for all problems:: Will add Zofran today, request proof tester sergei, encouraged patient to accept treatment for fecal impaction.
[2019-09-23 06:53] LABS: Basophils % 0.2 % (0.1-2.0); Eosinophils % 0.2 % (0.1-12.0); Lymphocytes # 2.4 K/mm3 (0.7-4.5); Lymphocytes % 33.8 % (10-50); Mean Corpuscular HGB Conc 30.4 g/dL (31.8-35.4); Mean Corpuscular Volume 92.7 fl (81-99); Monocytes # 0.2 K/mm3 (0.1-1.0); Monocytes % 3.4 % (1.7-9.3); Neutrophils # 4.4 K/mm3 (1.8-7.8); Neutrophils % 62.3 % (37.0-80.0); Platelet Count 150 K/mm3 (142-424); Red Blood Count 3.55 M/mm3 (4.20-5.40); Red Cell Distribution Width 15.7 % (11.5-17.5); White Blood Count 7.1 K/mm3 (4.8-10.8)
[2019-09-23 07:01] LABS: Anion Gap 11.2 mEq/L (5-15); Calcium 8.8 mg/dl (8.4-10.2)
--- NOTE | 2019-09-23 07:12 | Progress Note ---
Subjective Narrative: She is currently resting/asleep. She reportedly had some intermittent nausea overnight. Exam Vital signs and Labs for Last 24 Hours: Temp Pulse Resp BP Pulse Ox 98.5 F 96 H 16 113/54 L 90 L 09/23/19 04:00 09/23/19 04:00 09/23/19 04:00 09/23/19 04:00 09/23/19 04:00 Laboratory Results - last 24 hr 09/22/19 06:20: WBC 9.2, RBC 3.32 L, Hgb 9.7 L D, Hct 30.8 L, MCV 92.7, MCH 28.8, MCHC 31.1 L, RDW 15.8, Plt Count 163 D, MPV 8.0, Neut % (Auto) 74.3, Lymph % (Auto) 22.0, Leon % (Auto) 3.4, Eos % (Auto) 0.0 L, Baso % (Auto) 0.3, Neut # (Auto) 6.9, Lymph # (Auto) 2.0, Leon # (Auto) 0.3, Eos # (Auto) 0.0, Baso # (Auto) 0.0 09/22/19 06:20: Calcium 8.3 L D 09/22/19 10:40: POC Glucose 111 H 09/23/19 06:05: WBC 7.1, RBC 3.55 L, Hgb 10.0 L, Hct 33.0 L, MCV 92.7, MCH 28.2, MCHC 30.4 L, RDW 15.7, Plt Count 150, MPV 8.0, Neut % (Auto) 62.3, Lymph % (Auto) 33.8, Leon % (Auto) 3.4, Eos % (Auto) 0.2, Baso % (Auto) 0.2, Neut # (Auto) 4.4, Lymph # (Auto) 2.4, Leon # (Auto) 0.2, Eos # (Auto) 0.0, Baso # (Auto) 0.0 09/23/19 06:05: Sodium 139, Potassium 4.2 D, Chloride 108 H, Carbon Dioxide 24, Anion Gap 11.2, BUN 13 D, Creatinine 0.70, Estimated Creat Clear 36, Estimated GFR 79, Est GFR ( Amer) 96, Glucose 118 H, Calcium 8.8 I & O for Last 24 hours: Intake & Output 09/20/19 09/21/19 09/22/19 09/23/19 11:59 11:59 11:59 11:59 Intake Total 1474 / 1474 2381 / 2381 Output Total 400 / 400 Balance 1474 / 1474 1980 Weight 114 lb 118 lb 5 oz 125 lb 9 oz - Constitutional no acute distress - *Routine Respiratory Exam Absent: respiratory distress - *Routine Cardiovascular Exam Present: RRR Progress Note: A&P (1) Intra-abdominal fluid collection Status: Acute Assessment and plan: A repeat CT scan has been ordered by her primary service. Results of her CT scan may alter course of antibiotic therapy. Current Visit: Yes (2) Abdominal pain Status: Acute Current Visit: Yes (3) Fecal impaction in rectum Status: Acute Assessment and plan: Nursing staff states that she has continued to refuse treatment for fecal impaction. Ongoing management as per PCP Current Visit: Yes (4) Malnutrition Status: Acute Current Visit: No (5) Leukocytosis Status: Acute Current Visit: Yes (6) Renal insufficiency Status: Acute Current Visit: Yes (7) Hyponatremia Status: Acute Current Visit: Yes (8) Lichen planus Status: Chronic Current Visit: Yes (9) History of bowel resection Status: Acute Current Visit: Yes (10) Hyperlipidemia Status: Chronic Current Visit: Yes
--- NOTE | 2019-09-23 08:24 | Progress Note ---
<Mireille Santizo - Last Filed: 09/23/19 08:21> Internal Medicine - PN: Subj *Date: 09/23/19 *Time: 08:21 Interval history: Patient states she is miserable this morning. She tried to drink contrast for her CT and immediately became nauseated and vomited. She states she just cannot drink it. She is also refused her enemas. Nursing reports she is only had 2 very small bowel movements since admission. She states she is just "done." She is complaining of diffuse abdominal pain. Exam Vital signs and Labs for Last 24 Hours: Temp Pulse Resp BP Pulse Ox 98.5 F 96 H 16 113/54 L 90 L 09/23/19 04:00 09/23/19 04:00 09/23/19 04:00 09/23/19 04:00 09/23/19 04:00 Laboratory Results - last 24 hr 09/22/19 10:40: POC Glucose 111 H 09/23/19 06:05: WBC 7.1, RBC 3.55 L, Hgb 10.0 L, Hct 33.0 L, MCV 92.7, MCH 28.2, MCHC 30.4 L, RDW 15.7, Plt Count 150, MPV 8.0, Neut % (Auto) 62.3, Lymph % (Auto) 33.8, Mcdowell % (Auto) 3.4, Eos % (Auto) 0.2, Baso % (Auto) 0.2, Neut # (Auto) 4.4, Lymph # (Auto) 2.4, Mcdowell # (Auto) 0.2, Eos # (Auto) 0.0, Baso # (Auto) 0.0 09/23/19 06:05: Sodium 139, Potassium 4.2 D, Chloride 108 H, Carbon Dioxide 24, Anion Gap 11.2, BUN 13 D, Creatinine 0.70, Estimated Creat Clear 36, Estimated GFR 79, Est GFR ( Amer) 96, Glucose 118 H, Calcium 8.8 I & O for Last 24 hours: Intake & Output 09/20/19 09/21/19 09/22/19 09/23/19 11:59 11:59 11:59 11:59 Intake Total 1474 / 1474 2381 / 2381 Output Total 400 / 400 Balance 1474 / 1474 1980 Weight 114 lb 118 lb 5 oz 125 lb 9 oz - Constitutional Comments: Does not appear to feel well - *Routine Respiratory Exam Present: CTA bilaterally - *Routine Cardiovascular Exam Present: RRR - *Routine Abdominal Exam Present: soft, tenderness (diffuse) Comments: hypoactive BS - *Routine Extremities Exam Absent: cyanosis, clubbing, edema - *Routine Skin Exam Present: pallor, warm. Absent: rash - *Routine Neurological Exam Present: alert, oriented X3 Assessment and Plan (1) Intra-abdominal fluid collection Current visit: Yes Status: Acute Category: Medical Code(s): R18.8 - Other ascites (2) Abdominal pain Current visit: Yes Status: Acute Qualifiers: Abdominal location: generalized Qualified Code(s): R10.84 - Generalized abdominal pain Category: Medical Code(s): R10.9 - Unspecified abdominal pain (3) Fecal impaction in rectum Current visit: Yes Status: Acute Category: Medical Code(s): K56.41 - Fecal impaction (4) Malnutrition Current visit: No Status: Acute Category: Medical Code(s): E46 - Unspecified protein-calorie malnutrition (5) Leukocytosis Current visit: Yes Status: Acute Category: Medical Code(s): D72.829 - Elevated white blood cell count, unspecified (6) Renal insufficiency Current visit: Yes Status: Acute Category: Medical Code(s): N28.9 - Disorder of kidney and ureter, unspecified (7) Hyponatremia Current visit: Yes Status: Acute Category: Medical Code(s): E87.1 - Hypo- osmolality and hyponatremia (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 Category: Medical Code(s): L43.9 - Lichen planus, unspecified (9) History of bowel resection Current visit: Yes Status: Acute Category: Surgical Code(s): Z90.49 - Acquired absence of other specified parts of digestive tract (10) Hyperlipidemia Current visit: Yes Status: Chronic Category: Medical Code(s): E78.5 - Hyperlipidemia, unspecified - Assessment and plan all Dx Assessment and Plan for all problems:: Will discuss further care with Dr. Guardaod. Patient states she cannot drink the contrast dye. She may just have to get a CT without contrast. <Elvin Guardado - Last Filed: 09/23/19 09:05> Internal Medicine - PN: Subj *Date: 09/23/19 *Time: 09:03 Exam Vital signs and Labs for Last 24 Hours: Temp Pulse Resp BP Pulse Ox 98.1 F 91 H 16 127/69 93 L 09/23/19 08:00 09/23/19 08:00 09/23/19 08:00 09/23/19 08:00 09/23/19 08:00 Laboratory Results - last 24 hr 09/22/19 10:40: POC Glucose 111 H 09/23/19 06:05: WBC 7.1, RBC 3.55 L, Hgb 10.0 L, Hct 33.0 L, MCV 92.7, MCH 28.2, MCHC 30.4 L, RDW 15.7, Plt Count 150, MPV 8.0, Neut % (Auto) 62.3, Lymph % (Auto) 33.8, Mcdowell % (Auto) 3.4, Eos % (Auto) 0.2, Baso % (Auto) 0.2, Neut # (Auto) 4.4, Lymph # (Auto) 2.4, Mcdowell # (Auto) 0.2, Eos # (Auto) 0.0, Baso # (Auto) 0.0 09/23/19 06:05: Sodium 139, Potassium 4.2 D, Chloride 108 H, Carbon Dioxide 24, Anion Gap 11.2, BUN 13 D, Creatinine 0.70, Estimated Creat Clear 36, Estimated GFR 79, Est GFR ( Amer) 96, Glucose 118 H, Calcium 8.8 I & O for Last 24 hours: Intake & Output 09/20/19 09/21/19 09/22/19 09/23/19 23:59 23:59 23:59 23:59 Intake Total 2833 / 2833 1122 / 1122 Output Total 400 / 400 Balance 2833 / 2833 722 / 722 Weight 118 lb 5 oz 118 lb 5.012 oz 125 lb 9 oz Assessment and Plan (1) Intra-abdominal fluid collection Current visit: Yes Status: Acute Category: Medical Code(s): R18.8 - Other ascites (2) Abdominal pain Current visit: Yes Status: Acute Qualifiers: Abdominal location: generalized Qualified Code(s): R10.84 - Generalized abdominal pain Category: Medical Code(s): R10.9 - Unspecified abdominal pain (3) Fecal impaction in rectum Current visit: Yes Status: Acute Category: Medical Code(s): K56.41 - Fecal impaction (4) Malnutrition Current visit: No Status: Acute Category: Medical Code(s): E46 - Unspecified protein-calorie malnutrition (5) Leukocytosis Current visit: Yes Status: Acute Category: Medical Code(s): D72.829 - Elevated white blood cell count, unspecified (6) Renal insufficiency Current visit: Yes Status: Acute Category: Medical Code(s): N28.9 - Disorder of kidney and ureter, unspecified (7) Hyponatremia Current visit: Yes Status: Acute Category: Medical Code(s): E87.1 - Hypo- osmolality and hyponatremia (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 Category: Medical Code(s): L43.9 - Lichen planus, unspecified (9) History of bowel resection Current visit: Yes Status: Acute Category: Surgical Code(s): Z90.49 - Acquired absence of other specified parts of digestive tract (10) Hyperlipidemia Current visit: Yes Status: Chronic Category: Medical Code(s): E78.5 - Hyperlipidemia, unspecified (11) Protein-calorie malnutrition, moderate Current visit: Yes Status: Acute Category: Medical Code(s): E44.0 - Moderate protein-calorie malnutrition (12) Peritonitis Current visit: Yes Status: Acute Category: Medical Code(s): K65.9 - Peritonitis, unspecified - Assessment and plan all Dx Assessment and Plan for all problems:: Patient is not improving, she appears to have worsening peritonitis. Would like to repeat CT scan today, will use IV contrast only.
--- NOTE | 2019-09-23 08:50 | Electrocardiograph Report ---
APPROVED REPORT Exam: Resting ECG HR:84 bpm ECG Measurements Heart Rate 84 AXES MO 132 P 27 QRSd 86 QRS -20 QT 392 T42 QTc 463 <Conclusion> Normal sinus rhythm Normal ECG Electronically signed by : Rinku Dixon, 09/23/2019 08:49:55
--- NOTE | 2019-09-24 10:29 | Progress Note ---
Subjective Narrative: The patient is currently resting. She continues to have pain and intermittent nausea. She wishes to go home and "quit all this stuff". Exam Vital signs and Labs for Last 24 Hours: Temp Pulse Resp BP Pulse Ox 98.6 F 86 14 113/61 94 L 09/24/19 07:42 09/24/19 07:42 09/24/19 07:42 09/24/19 07:42 09/24/19 08:00 Laboratory Results - last 24 hr 09/23/19 11:08: POC Glucose 124 H I & O for Last 24 hours: Intake & Output 09/21/19 09/22/19 09/23/19 09/24/19 11:59 11:59 11:59 11:59 Intake Total 1474 / 1474 2581 / 2581 2824 / 2824 Output Total 400 / 400 200 / 200 Balance 1474 / 1474 2181 / 2181 2624 / 2624 Weight 114 lb 118 lb 5 oz 125 lb 9 oz 126 lb 6 oz - Constitutional no acute distress - *Routine Respiratory Exam Absent: respiratory distress - *Routine Cardiovascular Exam Present: RRR - *Routine Abdominal Exam Present: soft Comments: Midline wound without cellulitis Progress Note: A&P (1) Intra-abdominal fluid collection Status: Acute Assessment and plan: These collections certainly may be infected and represent true abscesses; ever, they could also represent sterile postoperative collections. Complete course of antibiotic coverage as per primary service Current Visit: Yes (2) Abdominal pain Status: Acute Current Visit: Yes (3) Fecal impaction in rectum Status: Acute Current Visit: Yes (4) Malnutrition Status: Acute Current Visit: No (5) Leukocytosis Status: Acute Current Visit: Yes (6) Renal insufficiency Status: Acute Current Visit: Yes (7) Hyponatremia Status: Acute Current Visit: Yes (8) Lichen planus Status: Chronic Current Visit: Yes (9) History of bowel resection Status: Acute Current Visit: Yes (10) Hyperlipidemia Status: Chronic Current Visit: Yes (11) Protein-calorie malnutrition, moderate Status: Acute Current Visit: Yes (12) Peritonitis Status: Acute Current Visit: Yes
--- NOTE | 2019-09-24 13:10 | Progress Note ---
Internal Medicine - PN: Subj *Date: 09/24/19 *Time: 09:00 Interval history: Dr. Smith visited with patient and her family. Chart, x-rays and labs are reviewed. Exam Vital signs and Labs for Last 24 Hours: Temp Pulse Resp BP Pulse Ox 98.6 F 86 14 113/61 94 L 09/24/19 07:42 09/24/19 07:42 09/24/19 07:42 09/24/19 07:42 09/24/19 08:00 I & O for Last 24 hours: Intake & Output 09/22/19 09/23/19 09/24/19 09/25/19 11:59 11:59 11:59 12:59 Intake Total 1474 / 1474 2581 / 2581 2824 / 2824 Output Total 400 / 400 200 / 200 Balance 1474 / 1474 2181 / 2181 2624 / 2624 Weight 118 lb 5 oz 125 lb 9 oz 126 lb 6 oz Radiology Reports for the Last 24 Hours: RADIOLOGY: Overall no significant change in the multiple multilocular complex fluid collections some of which contain air-fluid levels consistent with barium peritonitis with possible abscesses. - Constitutional no acute distress (awake, communicative) - *Routine HEENT Exam Eye: Present: PERRL ENT: Present: mucous membranes moist - *Routine Respiratory Exam Absent: respiratory distress - *Routine Cardiovascular Exam Present: RRR - *Routine Abdominal Exam Present: soft (dressing in place) - *Routine Extremities Exam Absent: edema Assessment and Plan (1) Intra-abdominal fluid collection Current visit: Yes Status: Acute Category: Medical Code(s): R18.8 - Other ascites (2) Abdominal pain Current visit: Yes Status: Acute Qualifiers: Abdominal location: generalized Qualified Code(s): R10.84 - Generalized abdominal pain Category: Medical Code(s): R10.9 - Unspecified abdominal pain (3) Fecal impaction in rectum Current visit: Yes Status: Acute Category: Medical Code(s): K56.41 - Fecal impaction (4) Malnutrition Current visit: No Status: Acute Category: Medical Code(s): E46 - Unspecified protein-calorie malnutrition (5) Leukocytosis Current visit: Yes Status: Acute Category: Medical Code(s): D72.829 - Elevated white blood cell count, unspecified (6) Renal insufficiency Current visit: Yes Status: Acute Category: Medical Code(s): N28.9 - Disorder of kidney and ureter, unspecified (7) Hyponatremia Current visit: Yes Status: Acute Category: Medical Code(s): E87.1 - Hypo- osmolality and hyponatremia (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 Category: Medical Code(s): L43.9 - Lichen planus, unspecified (9) History of bowel resection Current visit: Yes Status: Acute Category: Surgical Code(s): Z90.49 - Acquired absence of other specified parts of digestive tract (10) Hyperlipidemia Current visit: Yes Status: Chronic Category: Medical Code(s): E78.5 - Hyperlipidemia, unspecified (11) Protein-calorie malnutrition, moderate Current visit: Yes Status: Acute Category: Medical Code(s): E44.0 - Moderate protein-calorie malnutrition (12) Peritonitis Current visit: Yes Status: Acute Category: Medical Code(s): K65.9 - Peritonitis, unspecified - Assessment and plan all Dx Assessment and Plan for all problems:: continue present course. Also...see Dr. Collazo's note.
--- NOTE | 2019-09-25 09:31 | Progress Note ---
Internal Medicine - PN: Subj *Date: 09/25/19 *Time: 09:30 Exam Vital signs and Labs for Last 24 Hours: Temp Pulse Resp BP Pulse Ox 98.9 F 90 20 111/59 L 93 L 09/25/19 08:00 09/25/19 08:00 09/25/19 08:00 09/25/19 08:00 09/25/19 08:00 I & O for Last 24 hours: Intake & Output 09/22/19 09/23/19 09/24/19 09/26/19 23:59 23:59 23:59 00:59 Intake Total 2833 / 2833 2442 / 2442 1804 / 1804 1540 / 1540 Output Total 400 / 400 700 / 700 450 / 450 Balance 2833 / 2833 2042 / 2042 1104 / 1104 1090 / 1090 Weight 53.666 kg 56.954 kg 57.323 kg 59.959 kg Assessment and Plan (1) Intra-abdominal fluid collection Current visit: Yes Status: Acute Category: Medical Code(s): R18.8 - Other ascites (2) Abdominal pain Current visit: Yes Status: Acute Qualifiers: Abdominal location: generalized Qualified Code(s): R10.84 - Generalized abdominal pain Category: Medical Code(s): R10.9 - Unspecified abdominal pain (3) Fecal impaction in rectum Current visit: Yes Status: Acute Category: Medical Code(s): K56.41 - Fecal impaction (4) Malnutrition Current visit: No Status: Acute Category: Medical Code(s): E46 - Unspecified protein-calorie malnutrition (5) Leukocytosis Current visit: Yes Status: Acute Category: Medical Code(s): D72.829 - Elevated white blood cell count, unspecified (6) Renal insufficiency Current visit: Yes Status: Acute Category: Medical Code(s): N28.9 - Disorder of kidney and ureter, unspecified (7) Hyponatremia Current visit: Yes Status: Acute Category: Medical Code(s): E87.1 - Hypo- osmolality and hyponatremia (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 Category: Medical Code(s): L43.9 - Lichen planus, unspecified (9) History of bowel resection Current visit: Yes Status: Acute Category: Surgical Code(s): Z90.49 - Acquired absence of other specified parts of digestive tract (10) Hyperlipidemia Current visit: Yes Status: Chronic Category: Medical Code(s): E78.5 - Hyperlipidemia, unspecified (11) Protein-calorie malnutrition, moderate Current visit: Yes Status: Acute Category: Medical Code(s): E44.0 - Moderate protein-calorie malnutrition (12) Peritonitis Current visit: Yes Status: Acute Category: Medical Code(s): K65.9 - Peritonitis, unspecified The patient's infection will respond to the chosen ABx?: Yes Is the patient receiving the right drug, dose, and route?: Yes Could a more targeted ABx be ordered?: No
--- NOTE | 2019-09-25 12:05 | Progress Note ---
Internal Medicine - PN: Subj *Date: 09/25/19 *Time: 12:02 Interval history: Clinically she is unchanged. Perhaps less responsive. Again I was able to speak with the family. Exam Vital signs and Labs for Last 24 Hours: Temp Pulse Resp BP Pulse Ox 98.9 F 90 20 111/59 L 93 L 09/25/19 08:00 09/25/19 08:00 09/25/19 08:00 09/25/19 08:00 09/25/19 08:00 I & O for Last 24 hours: Intake & Output 09/23/19 09/24/19 09/25/19 09/26/19 10:59 10:59 11:59 11:59 Intake Total Output Total Balance Weight - Constitutional no acute distress (Relatively comfortable) - *Routine HEENT Exam Eye: Present: PERRL ENT: Present: mucous membranes moist - *Routine Respiratory Exam Present: CTA bilaterally - *Routine Cardiovascular Exam Present: RRR - *Routine Abdominal Exam Present: soft (Dressing in place.) - *Routine Extremities Exam Absent: edema - *Routine Neurological Exam Absent: alert (Poorly responsive. She will give yes and no responses.) Assessment and Plan (1) Intra-abdominal fluid collection Current visit: Yes Status: Acute Category: Medical Code(s): R18.8 - Other ascites (2) Abdominal pain Current visit: Yes Status: Acute Qualifiers: Abdominal location: generalized Qualified Code(s): R10.84 - Generalized abdominal pain Category: Medical Code(s): R10.9 - Unspecified abdominal pain (3) Fecal impaction in rectum Current visit: Yes Status: Acute Category: Medical Code(s): K56.41 - Fecal impaction (4) Malnutrition Current visit: No Status: Acute Category: Medical Code(s): E46 - Unspecified protein-calorie malnutrition (5) Leukocytosis Current visit: Yes Status: Acute Category: Medical Code(s): D72.829 - Elevated white blood cell count, unspecified (6) Renal insufficiency Current visit: Yes Status: Acute Category: Medical Code(s): N28.9 - Disorder of kidney and ureter, unspecified (7) Hyponatremia Current visit: Yes Status: Acute Category: Medical Code(s): E87.1 - Hypo- osmolality and hyponatremia (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 Category: Medical Code(s): L43.9 - Lichen planus, unspecified (9) History of bowel resection Current visit: Yes Status: Acute Category: Surgical Code(s): Z90.49 - Acquired absence of other specified parts of digestive tract (10) Hyperlipidemia Current visit: Yes Status: Chronic Category: Medical Code(s): E78.5 - Hyperlipidemia, unspecified (11) Protein-calorie malnutrition, moderate Current visit: Yes Status: Acute Category: Medical Code(s): E44.0 - Moderate protein-calorie malnutrition (12) Peritonitis Current visit: Yes Status: Acute Category: Medical Code(s): K65.9 - Peritonitis, unspecified - Assessment and plan all Dx Assessment and Plan for all problems:: Continue present treatment. The family has asked about Hospice.
--- NOTE | 2019-09-26 09:29 | Progress Note ---
Internal Medicine - PN: Subj *Date: 09/26/19 *Time: 09:27 Interval history: I visited the patient this morning. There were a large number of family members in the room. One family member ask about repeating CT scan. I reviewed a copy of the CT report from Thursday. I do not feel he would benefit from repeating the scan at this point. The family does seem to want hospice involved at this point. Care management is aware of that and is taking steps in that direction. Clinically the patient has not changed much though she may be actually less responsive. Exam Vital signs and Labs for Last 24 Hours: Temp Pulse Resp BP Pulse Ox 97.6 F 87 18 102/55 L 98 09/26/19 08:00 09/26/19 08:00 09/26/19 08:00 09/26/19 08:00 09/26/19 08:00 I & O for Last 24 hours: Intake & Output 09/23/19 09/24/19 09/25/19 09/26/19 10:59 10:59 11:59 11:59 Intake Total 4521 / 4521 Output Total 850 / 850 Balance 3671 / 3671 Weight 131 lb 3 oz - Constitutional somnolent - *Routine Respiratory Exam Present: CTA bilaterally - *Routine Cardiovascular Exam Present: RRR - *Routine Abdominal Exam Present: tenderness (Surgical dressings in place) - *Routine Extremities Exam Absent: edema Assessment and Plan (1) Intra-abdominal fluid collection Current visit: Yes Status: Acute Category: Medical Code(s): R18.8 - Other ascites (2) Abdominal pain Current visit: Yes Status: Acute Qualifiers: Abdominal location: generalized Qualified Code(s): R10.84 - Generalized abdominal pain Category: Medical Code(s): R10.9 - Unspecified abdominal pain (3) Fecal impaction in rectum Current visit: Yes Status: Acute Category: Medical Code(s): K56.41 - Fecal impaction (4) Malnutrition Current visit: No Status: Acute Category: Medical Code(s): E46 - Unspecified protein-calorie malnutrition (5) Leukocytosis Current visit: Yes Status: Acute Category: Medical Code(s): D72.829 - Elevated white blood cell count, unspecified (6) Renal insufficiency Current visit: Yes Status: Acute Category: Medical Code(s): N28.9 - Disorder of kidney and ureter, unspecified (7) Hyponatremia Current visit: Yes Status: Acute Category: Medical Code(s): E87.1 - Hypo- osmolality and hyponatremia (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 Category: Medical Code(s): L43.9 - Lichen planus, unspecified (9) History of bowel resection Current visit: Yes Status: Acute Category: Surgical Code(s): Z90.49 - Acquired absence of other specified parts of digestive tract (10) Hyperlipidemia Current visit: Yes Status: Chronic Category: Medical Code(s): E78.5 - Hyperlipidemia, unspecified (11) Protein-calorie malnutrition, moderate Current visit: Yes Status: Acute Category: Medical Code(s): E44.0 - Moderate protein-calorie malnutrition (12) Peritonitis Current visit: Yes Status: Acute Category: Medical Code(s): K65.9 - Peritonitis, unspecified - Assessment and plan all Dx Assessment and Plan for all problems:: Hospice consult.
--- NOTE | 2019-09-27 09:48 | Progress Note ---
Internal Medicine - PN: Subj *Date: 09/27/19 *Time: 09:46 Interval history: The patient was seen by hospice yesterday and admitted to their care. Please note medication changes. Today she is resting comfortably with some family at the bedside. Her respirations are without difficulty. She does rouse to a certain degree. Her abdomen seems tender when palpated Exam Vital signs and Labs for Last 24 Hours: Temp Pulse Resp BP Pulse Ox 99.3 F 104 H 18 98/49 L 90 L 09/27/19 07:56 09/27/19 07:56 09/27/19 07:56 09/27/19 07:56 09/27/19 07:56 Laboratory Results - last 24 hr 09/26/19 11:10: Urine Color Yellow, Urine Appearance Clear, Urine pH 5.5, Ur Specific [place] 1.010, Urine Protein Negative, Urine Glucose (UA) Negative, Urine Ketones Negative, Urine Blood Negative, Urine Nitrate Negative, Urine Bilirubin Negative, Urine Urobilinogen 0.2, Ur Leukocyte Esterase Negative, Urine RBC 5-10, Urine WBC 5-10, Ur Squamous Epith Cells Occasional, Urine Bacteria Trace, Hyaline Casts Occ I & O for Last 24 hours: Intake & Output 09/24/19 09/25/19 09/26/19 09/27/19 10:59 11:59 11:59 11:59 Intake Total 4621 / 4621 Output Total 850 / 850 800 / 800 Balance 3771 / 3771 -780 / -780 Weight 131 lb 3 oz 128 lb 9 oz - Constitutional no acute distress - *Routine Respiratory Exam Absent: respiratory distress - *Routine Cardiovascular Exam Present: RRR - *Routine Abdominal Exam Present: tenderness (When palpated. Dressing in place.) - *Routine Extremities Exam Absent: edema - *Routine Neurological Exam She is resting comfortably. Assessment and Plan (1) Intra-abdominal fluid collection Current visit: Yes Status: Acute Category: Medical Code(s): R18.8 - Other ascites (2) Abdominal pain Current visit: Yes Status: Acute Qualifiers: Abdominal location: generalized Qualified Code(s): R10.84 - Generalized abdominal pain Category: Medical Code(s): R10.9 - Unspecified abdominal pain (3) Fecal impaction in rectum Current visit: Yes Status: Acute Category: Medical Code(s): K56.41 - Fecal impaction (4) Malnutrition Current visit: No Status: Acute Category: Medical Code(s): E46 - Unspecified protein-calorie malnutrition (5) Leukocytosis Current visit: Yes Status: Acute Category: Medical Code(s): D72.829 - Elevated white blood cell count, unspecified (6) Renal insufficiency Current visit: Yes Status: Acute Category: Medical Code(s): N28.9 - Disorder of kidney and ureter, unspecified (7) Hyponatremia Current visit: Yes Status: Acute Category: Medical Code(s): E87.1 - Hypo- osmolality and hyponatremia (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 Category: Medical Code(s): L43.9 - Lichen planus, unspecified (9) History of bowel resection Current visit: Yes Status: Acute Category: Surgical Code(s): Z90.49 - Acquired absence of other specified parts of digestive tract (10) Hyperlipidemia Current visit: Yes Status: Chronic Category: Medical Code(s): E78.5 - Hyperlipidemia, unspecified (11) Protein-calorie malnutrition, moderate Current visit: Yes Status: Acute Category: Medical Code(s): E44.0 - Moderate protein-calorie malnutrition (12) Peritonitis Current visit: Yes Status: Acute Category: Medical Code(s): K65.9 - Peritonitis, unspecified - Assessment and plan all Dx Assessment and Plan for all problems:: Continue present care.
--- NOTE | 2019-09-28 11:36 | Progress Note ---
Internal Medicine - PN: Subj *Date: 09/28/19 *Time: 11:33 Interval history: Order changes per Hospice and family request. Patient continues apparent slow decline. Some response when spoken to, but no verbalization. Exam Vital signs and Labs for Last 24 Hours: Temp Pulse Resp BP Pulse Ox 100.3 F H 107 H 12 93/46 L 90 L 09/28/19 07:48 09/28/19 07:48 09/28/19 07:48 09/28/19 07:48 09/28/19 07:48 I & O for Last 24 hours: Intake & Output 09/25/19 09/26/19 09/27/19 09/28/19 11:59 11:59 11:59 11:59 Intake Total 4621 / 4621 0 / 0 Output Total 850 / 850 800 / 800 900 / 900 Balance 3771 / 3771 -780 / -780 -900 / -900 Weight 131 lb 3 oz 128 lb 9 oz 131 lb 2 oz - Constitutional no acute distress, somnolent - *Routine Respiratory Exam Absent: respiratory distress - *Routine Cardiovascular Exam Present: RRR - *Routine Abdominal Exam Present: tenderness (dressing in place) Assessment and Plan (1) Intra-abdominal fluid collection Current visit: Yes Status: Acute Category: Medical Code(s): R18.8 - Other ascites (2) Abdominal pain Current visit: Yes Status: Acute Qualifiers: Abdominal location: generalized Qualified Code(s): R10.84 - Generalized abdominal pain Category: Medical Code(s): R10.9 - Unspecified abdominal pain (3) Fecal impaction in rectum Current visit: Yes Status: Acute Category: Medical Code(s): K56.41 - Fecal impaction (4) Malnutrition Current visit: No Status: Acute Category: Medical Code(s): E46 - Unspecified protein-calorie malnutrition (5) Leukocytosis Current visit: Yes Status: Acute Category: Medical Code(s): D72.829 - Elevated white blood cell count, unspecified (6) Renal insufficiency Current visit: Yes Status: Acute Category: Medical Code(s): N28.9 - Disorder of kidney and ureter, unspecified (7) Hyponatremia Current visit: Yes Status: Acute Category: Medical Code(s): E87.1 - Hypo- osmolality and hyponatremia (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 Category: Medical Code(s): L43.9 - Lichen planus, unspecified (9) History of bowel resection Current visit: Yes Status: Acute Category: Surgical Code(s): Z90.49 - Acq uired absence of other specified parts of digestive tract (10) Hyperlipidemia Current visit: Yes Status: Chronic Category: Medical Code(s): E78.5 - Hyperlipidemia, unspecified (11) Protein-calorie malnutrition, moderate Current visit: Yes Status: Acute Category: Medical Code(s): E44.0 - Moderate protein-calorie malnutrition (12) Peritonitis Current visit: Yes Status: Acute Category: Medical Code(s): K65.9 - Peritonitis, unspecified - Assessment and plan all Dx Assessment and Plan for all problems:: Continue palliative care.
--- NOTE | 2019-09-29 09:38 | Progress Note ---
Internal Medicine - PN: Subj *Date: 09/29/19 *Time: 09:36 Interval history: The patient rests quietly. It is requested that we schedule her pain medicine and her lorazepam. This will be done. The family seems to be nearly continuously at bedside. The patient does wince if I put some pressure on her abdomen. That is about her only response. Exam Vital signs and Labs for Last 24 Hours: Temp Pulse Resp BP Pulse Ox 97.8 F 98 H 12 90/42 L 87 L 09/29/19 09:21 09/29/19 09:21 09/29/19 09:21 09/29/19 09:21 09/29/19 09:21 I & O for Last 24 hours: Intake & Output 09/26/19 09/27/19 09/28/19 09/29/19 11:59 11:59 11:59 11:59 Intake Total 4621 / 4621 0 / 0 Output Total 850 / 850 800 / 800 900 / 900 400 / 400 Balance 3771 / 3771 -780 / -780 -900 / -900 -390 / -390 Weight 131 lb 3 oz 128 lb 9 oz 131 lb 2 oz 130 lb 5 oz - Constitutional no acute distress - *Routine Respiratory Exam Absent: respiratory distress - *Routine Cardiovascular Exam Present: RRR - *Routine Abdominal Exam Present: soft, tenderness Assessment and Plan (1) Intra-abdominal fluid collection Current visit: Yes Status: Acute Category: Medical Code(s): R18.8 - Other ascites (2) Abdominal pain Current visit: Yes Status: Acute Qualifiers: Abdominal location: generalized Qualified Code(s): R10.84 - Generalized abdominal pain Category: Medical Code(s): R10.9 - Unspecified abdominal pain (3) Fecal impaction in rectum Current visit: Yes Status: Acute Category: Medical Code(s): K56.41 - Fecal impaction (4) Malnutrition Current visit: No Status: Acute Category: Medical Code(s): E46 - Unspecified protein-calorie malnutrition (5) Leukocytosis Current visit: Yes Status: Acute Category: Medical Code(s): D72.829 - Elevated white blood cell count, unspecified (6) Renal insufficiency Current visit: Yes Status: Acute Category: Medical Code(s): N28.9 - Disorder of kidney and ureter, unspecified (7) Hyponatremia Current visit: Yes Status: Acute Category: Medical Code(s): E87.1 - Hypo- osmolality and hyponatremia (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 Category: Medical Code(s): L43.9 - Lichen planus, unspecified (9) History of bowel resection Current visit: Yes Status: Acute Category: Surgical Code(s): Z90.49 - Acquired absence of other specified parts of digestive tract (10) Hyperlipidemia Current visit: Yes Status: Chronic Category: Medical Code(s): E78.5 - Hyperlipidemia, unspecified (11) Protein-calorie malnutrition, moderate Current visit: Yes Status: Acute Category: Medical Code(s): E44.0 - Moderate protein-calorie malnutrition (12) Peritonitis Current visit: Yes Status: Acute Category: Medical Code(s): K65.9 - Peritonitis, unspecified - Assessment and plan all Dx Assessment and Plan for all problems:: Medication changes are made.
--- NOTE | 2019-09-30 14:54 | Progress Note ---
Internal Medicine - PN: Subj *Date: 09/30/19 *Time: 14:51 Interval history: Unchanged, perhaps less responsive, less reactive to palpation of abdomen. Exam Vital signs and Labs for Last 24 Hours: Temp Pulse Resp BP Pulse Ox 98.6 F 114 H 20 97/37 L 69 L 09/30/19 08:15 09/30/19 08:15 09/30/19 09:18 09/30/19 08:15 09/30/19 08:15 I & O for Last 24 hours: Intake & Output 09/28/19 09/29/19 09/30/19 10/01/19 11:59 11:59 11:59 11:59 Intake Total 0 / 0 10 / 10 0 / 0 Output Total 900 / 900 400 / 400 650 / 650 Balance -900 / -900 -390 / -390 -650 / -650 Weight 131 lb 2 oz 130 lb 5 oz 128 lb 8 oz - Constitutional no acute distress - *Routine Respiratory Exam Absent: respiratory distress - *Routine Cardiovascular Exam Present: RRR - *Routine Extremities Exam Absent: edema Assessment and Plan (1) Intra-abdominal fluid collection Current visit: Yes Status: Acute Category: Medical Code(s): R18.8 - Other ascites (2) Abdominal pain Current visit: Yes Status: Acute Qualifiers: Abdominal location: generalized Qualified Code(s): R10.84 - Generalized abdominal pain Category: Medical Code(s): R10.9 - Unspecified abdominal pain (3) Fecal impaction in rectum Current visit: Yes Status: Acute Category: Medical Code(s): K56.41 - Fecal impaction (4) Malnutrition Current visit: No Status: Acute Category: Medical Code(s): E46 - Unspecified protein-calorie malnutrition (5) Leukocytosis Current visit: Yes Status: Acute Category: Medical Code(s): D72.829 - Elevated white blood cell count, unspecified (6) Renal insufficiency Current visit: Yes Status: Acute Category: Medical Code(s): N28.9 - Disorder of kidney and ureter, unspecified (7) Hyponatremia Current visit: Yes Status: Acute Category: Medical Code(s): E87.1 - Hypo-osmolality and hyponatremia (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 Category: Medical Code(s): L43.9 - Lichen planus, unspecified (9) History of bowel resection Current visit: Yes Status: Acute Category: Surgical Code(s): Z90.49 - Acquired absence of other specified parts of digestive tract (10) Hyperlipidemia Current visit: Yes Status: Chronic Category: Medical Code(s): E78.5 - Hyperlipidemia, unspecified (11) Protein-calorie malnutrition, moderate Current visit: Yes Status: Acute Category: Medical Code(s): E44.0 - Moderate protein-calorie malnutrition (12) Peritonitis Current visit: Yes Status: Acute Category: Medical Code(s): K65.9 - Peritonitis, unspecified - Assessment and plan all Dx Assessment and Plan for all problems:: continue present care.
--- NOTE | 2019-10-01 14:17 | Progress Note ---
Internal Medicine - PN: Subj *Date: 10/01/19 *Time: 14:14 Interval history: Ms. Araujo continues to continue. Her heart rate is regular. Blood pressures have declined and heart rate has had episodes of declining as well. Her legs show 1+ leg edema. She is not responsive at this point. Family is at bedside. Exam Vital signs and Labs for Last 24 Hours: Temp Pulse Resp BP Pulse Ox 97.6 F 100 H 15 71/35 L 78 L 10/01/19 07:37 10/01/19 07:37 10/01/19 07:37 10/01/19 07:37 10/01/19 07:37 I & O for Last 24 hours: Intake & Output 09/29/19 09/30/19 10/01/19 10/02/19 11:59 11:59 11:59 11:59 Intake Total 10 / 10 0 / 0 0 / 0 0 / 0 Output Total 400 / 400 650 / 650 325 / 325 Balance -390 / -390 -650 / -650 -325 / -325 0 / 0 Weight 130 lb 5 oz 128 lb 8 oz 125 lb 4 oz - Constitutional no acute distress - *Routine Respiratory Exam Present: CTA bilaterally. Absent: respiratory distress - *Routine Cardiovascular Exam Present: RRR - *Routine Extremities Exam Present: edema (2+) - *Routine Neurological Exam not responsive Assessment and Plan (1) Intra-abdominal fluid collection Current visit: Yes Status: Acute Category: Medical Code(s): R18.8 - Other ascites (2) Abdominal pain Current visit: Yes Status: Acute Qualifiers: Abdominal location: generalized Qualified Code(s): R10.84 - Generalized abdominal pain Category: Medical Code(s): R10.9 - Unspecified abdominal pain (3) Fecal impaction in rectum Current visit: Yes Status: Acute Category: Medical Code(s): K56.41 - Fecal impaction (4) Malnutrition Current visit: No Status: Acute Category: Medical Code(s): E46 - Unspecified protein-calorie malnutrition (5) Leukocytosis Current visit: Yes Status: Acute Category: Medical Code(s): D72.829 - Elevated white blood cell count, unspecified (6) Renal insufficiency Current visit: Yes Status: Acute Category: Medical Code(s): N28.9 - Disorder of kidney and ureter, unspecified (7) Hyponatremia Current visit: Yes Status: Acute Category: Medical Code(s): E87.1 - Hypo- osmolality and hyponatremia (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 Category: Medical Code(s): L43.9 - Lichen planus, unspecified (9) History of bowel resection Current visit: Yes Status: Acute Category: Surgical Code(s): Z90.49 - Acquired absence of other specified parts of digestive tract (10) Hyperlipidemia Current visit: Yes Status: Chronic Category: Medical Code(s): E78.5 - Hyperlipidemia, unspecified (11) Protein-calorie malnutrition, moderate Current visit: Yes Status: Acute Category: Medical Code(s): E44.0 - Moderate protein-calorie malnutrition (12) Peritonitis Current visit: Yes Status: Acute Category: Medical Code(s): K65.9 - Peritonitis, unspecified - Assessment and plan all Dx Assessment and Plan for all problems:: Continue hospice care. I asked the family about drawing some blood work. They declined.
--- NOTE | 2019-10-02 11:47 | Progress Note ---
Internal Medicine - PN: Subj *Date: 10/02/19 *Time: 11:45 Interval history: There is not much clinical change, though the family said she had a difficult night with chest congestion. This improved after they set her up a bit. Today on auscultation she does have more rhonchi particularly in the right upper lobe area. She is not responsive and does not seem to be in distress.. She has more leg edema. Exam Vital signs and Labs for Last 24 Hours: Temp Pulse Resp BP Pulse Ox 98.5 F 119 H 10 L 74/36 L 63 L 10/02/19 07:42 10/02/19 07:42 10/02/19 07:42 10/02/19 07:42 10/02/19 07:42 I & O for Last 24 hours: Intake & Output 09/29/19 09/30/19 10/01/19 10/02/19 11:59 11:59 11:59 11:59 Intake Total 10 / 10 0 / 0 0 / 0 0 / 0 Output Total 400 / 400 650 / 650 325 / 325 30 / 30 Balance -390 / -390 -650 / -650 -325 / -325 -30 / -30 Weight 130 lb 5 oz 128 lb 8 oz 125 lb 4 oz 128 lb 3 oz - Constitutional obtunded - *Routine Respiratory Exam Present: rhonchi. Absent: respiratory distress - *Routine Cardiovascular Exam Present: RRR - *Routine Abdominal Exam Present: soft. Absent: tenderness (Does not respond to pressure and palpation of the abdomen) - *Routine Extremities Exam Present: edema (Greater than 2+) - *Routine Neurological Exam Absent: alert (Obtunded not responsive) Assessment and Plan (1) Intra-abdominal fluid collection Current visit: Yes Status: Acute Category: Medical Code(s): R18.8 - Other ascites (2) Abdominal pain Current visit: Yes Status: Acute Qualifiers: Abdominal location: generalized Qualified Code(s): R10.84 - Generalized abdominal pain Category: Medical Code(s): R10.9 - Unspecified abdominal pain (3) Fecal impaction in rectum Current visit: Yes Status: Acute Category: Medical Code(s): K56.41 - Fecal impaction (4) Malnutrition Current visit: No Status: Acute Category: Medical Code(s): E46 - Unspecified protein-calorie malnutrition (5) Leukocytosis Current visit: Yes Status: Acute Category: Medical Code(s): D72.829 - Elevated white blood cell count, unspecified (6) Renal insufficiency Current visit: Yes Status: Acute Category: Medical Code(s): N28.9 - Disorder of kidney and ureter, unspecified (7) Hyponatremia Current visit: Yes Status: Acute Category: Medical Code(s): E87.1 - Hypo- osmolality and hyponatremia (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 Category: Medical Code(s): L43.9 - Lich en planus, unspecified (9) History of bowel resection Current visit: Yes Status: Acute Category: Surgical Code(s): Z90.49 - Acquired absence of other specified parts of digestive tract (10) Hyperlipidemia Current visit: Yes Status: Chronic Category: Medical Code(s): E78.5 - Hyperlipidemia, unspecified (11) Protein-calorie malnutrition, moderate Current visit: Yes Status: Acute Category: Medical Code(s): E44.0 - Moderate protein-calorie malnutrition (12) Peritonitis Current visit: Yes Status: Acute Category: Medical Code(s): K65.9 - Peritonitis, unspecified - Assessment and plan all Dx Assessment and Plan for all problems:: Scopolamine was reordered.
--- NOTE | 2019-10-03 09:18 | Progress Note ---
Internal Medicine - PN: Subj *Date: 10/03/19 *Time: 09:16 Interval history: She continues to rest comfortably. Her lungs are clear this morning than yesterday. Her heart rate is regular. She still has leg edema. Her urine output has declined significantly. Exam Vital signs and Labs for Last 24 Hours: Temp Pulse Resp BP Pulse Ox 98.0 F 119 H 20 58/30 L 64 L 10/03/19 07:46 10/03/19 07:46 10/03/19 07:46 10/03/19 07:46 10/03/19 07:46 I & O for Last 24 hours: Intake & Output 09/30/19 10/01/19 10/02/19 10/03/19 11:59 11:59 11:59 11:59 Intake Total 0 / 0 0 / 0 0 / 0 0 / 0 Output Total 650 / 650 325 / 325 30 / 30 200 / 200 Balance -650 / -650 -325 / -325 -30 / -30 -200 / -200 Weight 128 lb 8 oz 125 lb 4 oz 128 lb 3 oz 140 lb - Constitutional obtunded - *Routine Respiratory Exam Present: CTA bilaterally, diminished air movement - *Routine Cardiovascular Exam Present: RRR - *Routine Abdominal Exam Absent: tenderness - *Routine Extremities Exam Present: edema (Greater than 2+) - *Routine Neurological Exam Absent: alert Assessment and Plan (1) Intra-abdominal fluid collection Current visit: Yes Status: Acute Category: Medical Code(s): R18.8 - Other ascites (2) Abdominal pain Current visit: Yes Status: Acute Qualifiers: Abdominal location: generalized Qualified Code(s): R10.84 - Generalized abdominal pain Category: Medical Code(s): R10.9 - Unspecified abdominal pain (3) Fecal impaction in rectum Current visit: Yes Status: Acute Category: Medical Code(s): K56.41 - Fecal impaction (4) Malnutrition Current visit: No Status: Acute Category: Medical Code(s): E46 - Unspecified protein-calorie malnutrition (5) Leukocytosis Current visit: Yes Status: Acute Category: Medical Code(s): D72.829 - Elevated white blood cell count, unspecified (6) Renal insufficiency Current visit: Yes Status: Acute Category: Medical Code(s): N28.9 - Disorder of kidney and ureter, unspecified (7) Hyponatremia Current visit: Yes Status: Acute Category: Medical Code(s): E87.1 - Hypo- osmolality and hyponatremia (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 Category: Medical Code(s): L43.9 - Lichen planus, unspecified (9) History of bowel resection Current visit: Yes Status: Acute Category: Surgical Code(s): Z90.49 - Acquired absence of other specified parts of digestive tract (10) Hyperlipidemia Current visit: Yes Status: Chronic Category: Medical Code(s): E78.5 - Hyperlipidemia, unspecified (11) Protein-calorie malnutrition, moderate Current visit: Yes Status: Acute Category: Medical Code(s): E44.0 - Moderate protein-calorie malnutrition (12) Peritonitis Current visit: Yes Status: Acute Category: Medical Code(s): K65.9 - Peritonitis, unspecified - Assessment and plan all Dx Assessment and Plan for all problems:: Continue present care. I think the scopolamine patch helped the secretions.
--- NOTE | 2019-10-04 15:49 | Progress Note ---
Internal Medicine - PN: Subj *Date: 10/04/19 *Time: 15:46 Interval history: She continues. She does not take anything by mouth and she is obviously more dehydrated. Urine output has been scant. Leg edema present at greater than 2+. She seems to rest comfortably. Exam Vital signs and Labs for Last 24 Hours: Temp Pulse Resp BP Pulse Ox 98.7 F 118 H 13 71/35 L 74 L 10/04/19 08:00 10/04/19 08:00 10/04/19 08:00 10/04/19 08:00 10/04/19 08:00 I & O for Last 24 hours: Intake & Output 10/02/19 10/03/19 10/04/19 10/05/19 11:59 11:59 11:59 11:59 Intake Total 0 / 0 0 / 0 0 / 0 0 / 0 Output Total 30 / 30 200 / 200 Balance -30 / -30 -200 / -200 0 / 0 0 / 0 Weight 128 lb 3 oz 140 lb 125 lb 3 oz - Constitutional obtunded - *Routine Respiratory Exam Comments: Slow respirations with intermittent apnea - *Routine Cardiovascular Exam Present: RRR - *Routine Abdominal Exam Present: soft, tenderness (Does not react to pain.) - *Routine Extremities Exam Present: edema (Greater than 2+) Assessment and Plan (1) Intra-abdominal fluid collection Current visit: Yes Status: Acute Category: Medical Code(s): R18.8 - Other ascites (2) Abdominal pain Current visit: Yes Status: Acute Qualifiers: Abdominal location: generalized Qualified Code(s): R10.84 - Generalized abdominal pain Category: Medical Code(s): R10.9 - Unspecified abdominal pain (3) Fecal impaction in rectum Current visit: Yes Status: Acute Category: Medical Code(s): K56.41 - Fecal impaction (4) Malnutrition Current visit: No Status: Acute Category: Medical Code(s): E46 - Unspecified protein-calorie malnutrition (5) Leukocytosis Current visit: Yes Status: Acute Category: Medical Code(s): D72.829 - Elevated white blood cell count, unspecified (6) Renal insufficiency Current visit: Yes Status: Acute Category: Medical Code(s): N28.9 - Disord er of kidney and ureter, unspecified (7) Hyponatremia Current visit: Yes Status: Acute Category: Medical Code(s): E87.1 - Hypo- osmolality and hyponatremia (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 Category: Medical Code(s): L43.9 - Lichen planus, unspecified (9) History of bowel resection Current visit: Yes Status: Acute Category: Surgical Code(s): Z90.49 - Acquired absence of other specified parts of digestive tract (10) Hyperlipidemia Current visit: Yes Status: Chronic Category: Medical Code(s): E78.5 - Hyperlipidemia, unspecified (11) Protein-calorie malnutrition, moderate Current visit: Yes Status: Acute Category: Medical Code(s): E44.0 - Moderate protein-calorie malnutrition (12) Peritonitis Current visit: Yes Status: Acute Category: Medical Code(s): K65.9 - Peritonitis, unspecified - Assessment and plan all Dx Assessment and Plan for all problems:: Continue present care.
--- NOTE | 2019-10-04 22:40 | Death Note ---
Pronouncement Note - Date and Time of Date of : 10/04/19 Time of : 22:15 - PCOD Preliminary cause of : Bacteremia - Additional Data Confirmation of : no pulse, no respirations, no heart sounds, pupils fixed and dilated Family: at bedside Attending/PCP notified?: Yes Attending physician: Elvin Guardado MD Was code activated?: No Autopsy requested?: No certified fraud examiner notified?: No Organ bank notified?: Yes Advance directives: Yes
--- NOTE | 2019-10-06 12:44 | Discharge Summary ---
General - General Admission date:: 09/21/19 Discharge date: 10/04/19 HPI HPI: Ms. Araujo was an 89-year-old female who just recently underwent surgery for bowel obstruction. She had gone to the [facility] and stated she had felt poorly for 2 to 3 weeks prior to admission. She stated she had had diffuse abdominal pain along with constipation. She did have a previous fecal impaction and when she finally passed it, it felt like she had passed a softball. She stated she had been constipated and was having liquid stool around the constipation. She stated anytime she ate, she vomited and got extremely nauseated. She had been unable to drink as well. She felt so bad she asked to be brought to the emergency department. She had a CT of her abdomen and pelvis which showed multiple complex fluid collections throughout the abdomen with peripheral hyperdensity loculations some of which contained air in the left lower quadrant. Radiology felt this could represent sequela from barium peritonitis or possibly an abscess. They felt a repeat CT with oral contrast would be needed. She also had constipation with a rectal fecal impaction. She was admitted for further evaluation and treatment. Hospital Course Hospital Course: The patient's white blood cell count was elevated. Dr. Collazo was consulted as was Dr. Rose. Dr. Collazo spoke with the family about transfer to , but the patient adamantly refused any further surgical treatment. He recommended serial abdominal exams as well as antibiotic coverage, therefore the patient was started on Flagyl and ertapenem as well as IV fluids. An enema was ordered for her fecal impaction. The patient continued with abdominal and rectal pain. She did refuse further enema treatment but did have a small bowel movement. She remained nauseated. Zofran was added and a dietitian evaluation was ordered. She was encouraged to accept treatment for her fecal impaction. A repeat CT scan was ordered with contrast, as the patient appeared to have worsening peritonitis. The patient was unable to drink the oral contrast due to nausea. The CT was done with IV contrast only and showed overall no significant change in the multiple multi loculated complex fluid collections. The patient continued with abdominal pain. She began to become less responsive. The family asked about hospice. Hospice was consulted and the patient was admitted to their care. She continued to show slow decline. She was scheduled on pain medication and Lorazepam. Her blood pressures did decline and her heart rate declined as well. She began showing some leg edema. She became nonresponsive. She did began having some rhonchi, therefore scopolamine was ordered. Her urine output significantly declined. The patient did pass away on 10/04/2027 at 2250. Objective Vital signs: Temp Pulse Resp BP Pulse Ox 98.7 F 40 L 22 63/28 L 67 L 10/04/19 19:15 10/04/19 19:15 10/04/19 21:02 10/04/19 19:15 10/04/19 19:15 Narrative: - Constitutional Comments: Does not appear to feel well - *Routine HEENT Exam Head: Present: normocephalic Eye: Present: EOMI, PERRL ENT: Present: mucous membranes dry - *Routine Neck Exam Present: supple. Absent: lymphadenopathy - *Routine Respiratory Exam Present: CTA bilaterally - *Routine Cardiovascular Exam Present: RRR - *Routine Abdominal Exam Present: soft, normoactive bowel sounds, tenderness (diffuse) Comments: dressing in place on abdomen from recent surgery - *Routine Extremities Exam Absent: cyanosis, clubbing, edema - *Routine Skin Exam Present: warm. Absent: rash - *Routine Neurological Exam Present: alert, oriented X3 DS: Diagnosis - Discharge Diagnosis (1) Intra-abdominal fluid collection Status: Acute (2) Abdominal pain Status: Acute (3) Fecal impaction in rectum Status: Acute (4) Malnutrition Status: Acute (5) Leukocytosis Status: Acute (6) Renal insufficiency Status: Acute (7) Hyponatremia Status: Acute (8) Lichen planus Status: Chronic (9) History of bowel resection Status: Acute (10) Hyperlipidemia Status: Chronic (11) Protein-calorie malnutrition, moderate Status: Acute (12) Peritonitis Status: Acute Discharge Plan - Patient Discharge Instructions Patient Instructions: Peritonitis, Acute Abdominal Pain, DI for Peritonitis, DI for Fecal Impaction, Fecal Impaction - Follow up Plan Follow up with: Elvin Guardado MD [Primary Care Provider] - Disposition: Home Medications: Home Medications Medication Instructions Recorded Confirmed Type Fluconazole 150 mg PO WEEKLY 06/30/19 09/22/19 History mirtazapine 15 mg tablet 7.5 mg PO HS 09/13/19 09/22/19 History polyethylene glycol 3350 17 17 g PO DAILY 09/13/19 09/22/19 History gram/dose oral powder Famotidine [Pepcid 20mg Tablet] 20 mg PO BID 09/21/19 09/22/19 History Cholecalciferol (Vitamin D3) 50,000 units PO WEEKLY 09/22/19 09/22/19 History Lactulose [Lactulose 10gm/15ml 10 gm PO DAILYP PRN 09/22/19 09/22/19 History Oral Soln] ondansetron HCL [Zofran 4mg Tab*] 4 mg PO Q6HP PRN 09/22/19 09/22/19 History Prescriptions/Medication Reconciliation: No Action mirtazapine 15 mg tablet 7.5 mg PO HS polyethylene glycol 3350 17 gram/dose oral powder 17 g PO DAILY Fluconazole 150 mg PO WEEKLY Cholecalciferol (Vitamin D3) 50,000 units PO WEEKLY Famotidine [Pepcid 20mg Tablet] 20 mg PO BID ondansetron HCL [Zofran 4mg Tab*] 4 mg PO Q6HP PRN PRN Reason: Nausea Lactulose [Lactulose 10gm/15ml Oral Soln] 10 gm PO DAILYP PRN PRN Reason: Constipation - Problem Reconciliation Problems Reviewed?: Yes
== END 2019-10-05 00:40 | disposition expired | DRG 388 ==
LOC: 2ND 11:36 → ER 11:36 → 2ND 17:03 → OBSVTOIN 17:03 → 2ND 09-24 20:49
PROVIDERS: ADMIT Family Medicine; ATTEND Family Medicine
CPT/HCPCS: 36415; 74177; 80048; 80053; 81001; 82962; 84484; 85025; 93005; 96365; 96375; 99284; J1335; J2405; Q9967